=== PATIENT | female | born 1960 | race Caucasian/White ===

== ENCOUNTER → 2016-07-10 | Outpatient (REF) | payer BC | LOC: M LAB REF 15:58 | PROVIDERS: ATTEND Nurse Practitioner Family | DX: N39.3 Stress incontinence (female) (male) (principal) ==

== ENCOUNTER → 2016-07-13 | Outpatient (CLI) | payer BC ==
--- NOTE | 2016-07-14 10:36 | REP ---
Clinical: Pelvic pain. Technique: Transabdominal pelvic ultrasound followed by transvaginal examination for better evaluation of the endometrium and adnexa. Findings: Bladder is collapsed and measures 6.0 x 1.4 x 3.5 cm. Anteverted uterus measures 7.7 x 5.5 x 3.2 cm. The endometrial complex measures 2.5 mm thickness. Trace endocervical fluid is appreciated. No discrete uterine or endometrial abnormality is identified. The ovaries are not visualized. No pelvic fluid or adnexal mass lesion identified. Impression: Heterogeneous anteverted uterus with trace endocervical fluid. Ovaries not visualized. No pelvic fluid or adnexal mass lesion.
== END ==
LOC: M WHC 09:16
PROVIDERS: ATTEND Nurse Practitioner Family
DX: R10.2 Pelvic and perineal pain (principal); N39.46 Mixed incontinence

== ENCOUNTER → 2016-07-20 | Outpatient (REF) | payer BC ==
[2016-07-20 14:47] LABS: CALCIUM OXALATE CRYSTALS,URINE SMALL AMOUNT /hpf; SQUAMOUS EPITHELIAL CELL URINE SMALL AMOUNT /hpf (SMALL AMT); WBC, URINE TNTC /hpf (0-3)
[2016-07-20 14:51] LABS: BACTERIA, URINE SMALL AMOUNT; HYALINE CAST, URINE NONE SEEN /lpf (0-1); MICROSCOPIC EXAM PERFORMED
== END ==
LOC: M SMT 12:57
PROVIDERS: ATTEND Specialist
DX: N39.41 Urge incontinence (principal)

== ENCOUNTER → 2016-07-21 | Outpatient (CLI) | payer BC ==
--- NOTE | 2016-07-21 10:01 | REP ---
RENAL AND BLADDER ULTRASOUND: Real-time sonographic evaluation of the kidneys performed. Kidneys are normal in size and echotexture, right kidney measuring 12.7 x 6.4 x 5.2 cm and left kidney 12.9 x 9.6 x 7.7 cm. There is no hydronephrosis on the right, but there is mild hydronephrosis on the left. 2.8 cm calculus is seen at the left ureteropelvic junction. There is a cyst in the upper pole of the left kidney 1.3 cm in diameter. Incidental note is made of fatty infiltration of the liver. Urinary bladder measures 6.8 x 8.2 x 4.5 cm with a total volume of 164 mL. Postvoid residual is 11 mL which is 7% of the original volume. IMPRESSION: Calculus at the left ureteral pelvic junction 2.8 cm in diameter with mild left hydronephrosis. Small left renal cyst. Signed by Mark Nugent MD 07/21/2016 01:39 P
--- NOTE | 2016-07-21 17:32 | REP ---
KUB, TWO VIEWS: HISTORY: Kidney stone. Air is present in small and large intestine. There are no air fluid levels or dilated loops of intestine. There is no pneumoperitoneum. Calcifications measuring 9 and 19 mm are present overlying the left kidney consistent with nephrolithiasis. IMPRESSION: 1. Nonspecific bowel gas pattern. 2. Left nephrolithiasis. Signed by Jeffrey Bland MD 07/21/2016 05:46 P
== END ==
LOC: M RAD 07:12
PROVIDERS: ATTEND Specialist
DX: N20.0 Calculus of kidney (principal)

== ENCOUNTER → 2016-07-26 | Outpatient (CLI) | payer BC ==
[2016-07-26 12:24] LABS: MEAN CORPUSCULAR HEMOGLOBIN 30.9 pg (27.0-33.0); MEAN CORPUSCULAR VOLUME 93.5 fl (80.0-96.0); WHITE BLOOD COUNT 10.4 K/mm3 (4.0-10.0)
[2016-07-26 12:33] LABS: INR 1.15
[2016-07-26 12:48] LABS: CREATININE FOR GFR 1.05 MG/DL (0.55-1.02); GLOMERULAR FILTRATION RATE 57.5 (>51); POTASSIUM SERUM 4.6 MEQ/L (3.5-5.1)
--- NOTE | 2016-07-26 21:10 | ECGEPIP ---
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
--- NOTE | 2016-07-27 04:10 | REP ---
Clinical: Preoperative assessment . Comparison: 10/03/2006 . Technique: PA and lateral. Findings: The mediastinum and cardiac silhouette are normal. The lung johnson are clear and without acute consolidation, effusion, or pneumothorax. The skeletal structures are intact and normal. Impression: 1. No acute cardiopulmonary process. Signed by Jed Lewis MD 07/27/2016 04:01 A
== END ==
LOC: M LAB 11:50
PROVIDERS: ATTEND Urology
DX: N20.0 Calculus of kidney (principal)

== ENCOUNTER → 2016-07-29 | Outpatient (CLI) | payer BC | LOC: M LAB 08:19 | PROVIDERS: ATTEND Nurse Practitioner Family | DX: E78.4 Other hyperlipidemia (principal) ==

== ENCOUNTER → 2016-08-08 | Outpatient (CLI) | payer BC ==
[~2016-08-08] MED LIST: ACET50TA PO; ASPI1TAB PO; COLA100C3 PO; DITR5TAB PO; FURO40TA2 PO; LASI40TA PO; LISI10TA4 PO; OXYB5TA PO; SIMV20TA2 PO; SULF1TAB72 PO; ULTR50TA PO; ZEST1TAB6 PO; ZOCO20TA PO
--- NOTE | 2016-08-09 05:31 | REP ---
Clinical: Left flank pain. 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 Two vague left renal hypodensities are also appreciated and may represent cysts. Right kidney demonstrates 1 mm nonobstructing calculus without hydroureternephrosis or perinephric stranding. The bladder is collapsed and normal. Fatty infiltration to the liver noted. Spleen, pancreas, gallbladder, and bilateral adrenal glands are normal. The enteric system is without obstruction or acute inflammatory process. Normal terminal ileum and appendix identified in the right lower quadrant. Pelvis demonstrates normal collapsed bladder and age-appropriate uterus/adnexa. Sigmoid diverticula noted without acute diverticulitis. No pelvic fluid or ascites. No obvious adenopathy. Abdominal aorta without aneurysm. No free air. Musculoskeletal structures demonstrate age-related changes without focal osseous abnormality. Impression: 1. Acute on chronic changes to the left kidney as described above secondary to a 2 cm left renal calculus and 11 mm obstructing left UPJ calculus with possible early xanthogranulomatous changes. Punctate nonobstructing right renal calculus noted. Bilateral ureters and bladder appear normal. 2. Sigmoid diverticulosis without acute diverticulitis. 3. Hepatosteatosis. Signed by Jed Lewis MD 08/09/2016 05:22 A
== END ==
LOC: M RAD 13:03
PROVIDERS: ATTEND Urology
DX: N20.0 Calculus of kidney (principal)

== ENCOUNTER → 2016-08-11 | Outpatient (CLI) | payer BC ==
[~2016-08-11] MED LIST changes: -COLA100C3 PO; +COLA100C5 PO; +ISOVUE-300 61% 50ML VIAL (Q9967) As Ordered ONE; +LIDOCAINE 2% MDV 20 ML VIAL As Ordered ONE; +MIDAZOLAM INJ 2 MG/2 ML VIAL (J2250) As Ordered ONE; +NORCO, ANEXSIA 5/325MG TABLET (HYDROcodone/ACETAMINOPHEN) PO PRN; +ONDANSETRON 4 MG ORAL DISINTEGRATING TAB (S0181) SL ONE; -OXYB5TA PO; +OXYB5TAB10 PO; -ULTR50TA PO; +ULTR50TA8 PO; +cefTRIAXone SOD 1 GM VIAL (J0696) As Ordered ONE; +fentaNYL 100 MCG/2 ML INJECTION (J3010) As Ordered ONE; +oxyBUTYnin 5 MG TAB PO PRN
[2016-08-11 20:45] VITALS: BP 150/73
--- NOTE | 2016-08-12 16:03 | REPKIM ---
CLINICAL HISTORY: Left kidney stones, flank pain and h/o multiple UTIs. The referring urology service has asked a nephroureteral catheter (stent) placement for preop percutaneous nephrolithotripsy urology procedure on the left. PROCEDURE PERFORMED: 1. Ultrasound left Kidney 2. Percutaneous antegrade Nephrostogram 3. Percutaneous Nephroureteral catheter (stent) placement INTERVENTIONALIST: Sona Hill MD CONSENT: The risks, benefits and alternatives to the procedure were explained to the patient and informed written consent was obtained. SEDATION: Sedation and analgesia was provided by the Anesthesiology Dept. MEDICATIONS: Rocephin 1gm IV, Local Lidocaine CONTRAST: 15 mL Isovue 300 EBL: 20 mL FLUORO TIME: 11.9 minutes DEVICE USED: Used an 8.5F 45-cm pigtail with its tip trimmed; Nephroureteral catheter PROCEDURE/FINDINGS: The patient was brought to the interventional radiology suite and placed in the prone position, left flank prepped and draped in the usual sterile fashion. Time out procedure was performed. Ultrasound of the kidney showed 2 cm left renal calculus and 11 mm in the left renal pelvis/ureteropelvic junction and mild hydronephrosis. Using ultrasound and fluoroscopy guidance, a 21-gauge Accustick needle was advanced into the targeted lower pole posterior calyx, after infiltration of the skin and deep tissues with local anesthetic. Contrast was injected and images were obtained. This showed free antegrade flow of contrast into the urinary bladder. Using a hydrophilic guidewire, the catheter- wire combination was advanced around the renal pelvis stone into the proximal ureter then into the urinary bladder. The wire was then exchanged for a stiff wire. An 8.5-Burundian 45-cm length nephroureteral catheter (stent) was introduced over the guidewire after serial dilation of its tract. Due to patients body habitus and long length of the ureter, the NU distal loop could not be positioned in the bladder. For this reason, the pigtail portion of the NU was then trimmed and a straight segment of catheter tip positioned in the distal ureter. The nephroureteral catheter was then flushed and capped. The patient tolerated the procedure well with no immediate complications. The patient was transferred to the recovery room. This procedure was performed using ultrasound and fluoroscopy. Dr. Hill was present. IMPRESSION: 1. Two large kidney stones in the renal pelvis and UPJ region associated with mild hydronephrosis. Nephrostogram demonstrates free antegrade flow of contrast into the urinary bladder. 2. Successful 8.5F nephroureteral catheter (stent) placement via the posterior lower pole calyx with its tip positioned in the distal ureter just above the UVJ as discussed above. Findings discussed via phone with Dr. Baez. This NU access will be used for subsequent percutaneous nephrolithotripsy urology procedure. cc: Bull Baez MD [facility]
== END | disposition home or self-care (01) ==
LOC: M IRPRO 10:52
PROVIDERS: ATTEND Urology
DX: N13.2 Hydronephrosis with renal and ureteral calculous obstruction (principal)
CPT/HCPCS: 50395; 74485; C1729; C1769; C1887; C1894; J0696; J2250; J3010; Q9967

== ENCOUNTER 2016-08-14 07:05 | Inpatient (IN) | payer BC ==
[2016-08-14] VITALS (7 sets, daily range): BP systolic 111–145; BP diastolic 51–73
[~2016-08-14] VITALS: Ht 167.6 cm; Wt 120.2 kg
[~2016-08-14 07:05] MED LIST changes: -ACET50TA PO; -COLA100C5 PO; -DITR5TAB PO; +GLYCOPYRROLATE INJ 0.2 MG/ML 2 ML VIAL As Ordered ONE; -ISOVUE-300 61% 50ML VIAL (Q9967) As Ordered ONE; -LASI40TA PO; +LIDOCAINE 2% INJ 100 MG/5 ML SDV (FOR ANES.) As Ordered ONE; +LIDOCAINE 2% JELLY 30 ML As Ordered ONE; -LIDOCAINE 2% MDV 20 ML VIAL As Ordered ONE; +NEOSTIGMINE 1MG/ML 5 ML SYRINGE (J2710) As Ordered ONE; -NORCO, ANEXSIA 5/325MG TABLET (HYDROcodone/ACETAMINOPHEN) PO PRN; -ONDANSETRON 4 MG ORAL DISINTEGRATING TAB (S0181) SL ONE; +ONDANSETRON 4MG/2ML VIAL (J2405) As Ordered ONE; +PROPOFOL 200 MG/20 ML VIAL As Ordered ONE; +ROCURONIUM BROMIDE 50 MG/5 ML VIAL/SYRINGE As Ordered ONE; -ULTR50TA8 PO; -ZEST1TAB6 PO; -ZOCO20TA PO; -cefTRIAXone SOD 1 GM VIAL (J0696) As Ordered ONE; +dexameTHASONE 4 MG/ML 1ML VIAL (J1100) As Ordered ONE; -oxyBUTYnin 5 MG TAB PO PRN
[2016-08-14] MEDS ORDERED: LR 1,000 ML IV ONE (07:15)
[2016-08-14] MEDS ORDERED: FUROSEMIDE 40 MG TAB PO SCH (09:00)
[2016-08-14] MEDS ORDERED: LISINOPRIL 10 MG TAB PO SCH (09:00)
[2016-08-14] MEDS: DOCUSATE SODIUM 100 MG CAP PO SCH ×2 (09:00→21:29)
[2016-08-14] MEDS ORDERED: CONRAY-60 60% 50ML VIAL (Q9961) As Ordered ONE (09:40)
[2016-08-14] MEDS ORDERED: traMADol 50 MG TAB PO PRN (10:00)
[2016-08-14] MEDS ORDERED: ONDANSETRON 4MG/2ML VIAL (J2405) IV PRN ×2 (10:00→11:45)
[2016-08-14] MEDS ORDERED: ACETAMINOPHEN TAB 650MG DOSE (2X325MG) PO PRN (10:00)
[2016-08-14] MEDS ORDERED: MORPHINE 2 MG/ML 1ML SYRINGE IV PRN (10:00)
[2016-08-14] MEDS ORDERED: HYDROmorphone HCL 2 MG/ML 1ML VIAL (J1170) As Ordered ONE (10:31)
[2016-08-14] MEDS: fentaNYL 100 MCG/2 ML INJECTION (J3010) IV PRN ×4 (11:25→11:55)
[2016-08-14] MEDS ORDERED: fentaNYL 100 MCG/2 ML INJECTION (J3010) As Ordered ONE (11:25)
[2016-08-14] MEDS: oxyBUTYnin 5 MG TAB PO PRN ×2 (11:38→19:37)
[2016-08-14] MEDS: traMADol 50 MG TAB PO PRN (11:43)
[2016-08-14 11:44] LABS: MEAN CORPUSCULAR HEMOGLOBIN 31.1 pg (27.0-33.0); MEAN CORPUSCULAR HGB CONC 33.3 g/dl (32.0-36.5); MEAN CORPUSCULAR VOLUME 93.5 fl (80.0-96.0); RED CELL DISTRIBUTION WIDTH 12.5 % (11.5-14.5); WHITE BLOOD COUNT 7.6 K/mm3 (4.0-10.0)
[2016-08-14] MEDS ORDERED: LR 1,000 ML IV SCH (11:45)
[2016-08-14 12:04] LABS: ANION GAP 4 MEQ/L (8-16); BLOOD UREA NITROGEN 14 MG/DL (7-18); CALCIUM LEVEL 8.6 MG/DL (8.5-10.1); CARBON DIOXIDE LEVEL 32 MEQ/L (21-32); CHLORIDE LEVEL 104 MEQ/L (98-107); CREATININE FOR GFR 1.01 MG/DL (0.55-1.02); GLOMERULAR FILTRATION RATE > 60.0 (>51); GLUCOSE, FASTING 96 MG/DL (70-105); POTASSIUM SERUM 3.8 MEQ/L (3.5-5.1); SODIUM LEVEL 140 MEQ/L (136-145)
[2016-08-14] MEDS ORDERED: KETOROLAC 30 MG/ML VIAL (J1885) As Ordered ONE (12:11)
--- NOTE | 2016-08-14 12:16 | REP ---
Clinical: Retrograde pyelogram. Technique: Intraoperative fluoroscopic images. Findings: Multiple intraoperative fluoroscopic images demonstrate left nephrostomy and left ureteral stent placement. Two large intrarenal calcifications in the left kidney are identified and compatible with findings on recent CT. Total fluoroscopic time 58 seconds. Impression: Status post left nephrostomy and left ureteral stent placement. To large calcifications in left kidney again noted and unchanged compared to recent CT. Signed by Jed Lewis MD 08/14/2016 11:20 A
[2016-08-14] MEDS ORDERED: PERCOCET 5MG/325MG TAB As Ordered ONE (12:19)
[2016-08-14] MEDS ORDERED: KETOROLAC 30 MG/ML VIAL (J1885) IV ONE (12:45)
[2016-08-14] MEDS ORDERED: PERCOCET 5MG/325MG TAB PO ONE (12:45)
[2016-08-14] MEDS: NS 1,000 ML IV SCH ×2 (13:27→21:29)
--- NOTE | 2016-08-14 14:46 | RO ---
DATE OF PROCEDURE: 08/14/2016 PREPROCEDURE DIAGNOSIS: Left kidney stone. POSTPROCEDURE DIAGNOSIS: Left kidney stone. PROCEDURE: Left percutaneous nephrolithotomy, left nephroscopy with basket extraction of stones, left antegrade nephrostogram with intraoperative interpretations of images, left ureteral stent placement. SURGEON: Bull Baez MD HEALTH COMMISSIONER: None. ANESTHESIA: General. OPERATIVE INDICATIONS: This is a 56-year-old female with large left kidney stones. It was recommended that she be brought to the operating room today for the above listed procedure. DESCRIPTION OF PROCEDURE: The patient was brought to the operating room and general anesthesia was induced. Antibiotics were infused. She then had a Richardson catheter placed in the bladder under sterile conditions. After that point, she was placed in the prone position with all pressure points appropriately padded. At this time, the previously placed left nephroureteral stent was utilized to advance a Super Stiff wire down into the bladder. The nephroureteral stent was then removed leaving the wire in place. An approximately 3 to 4 cm transverse incision was made adjacent to the wire in the skin. I then advanced a dual lumen catheter over the wire into the left kidney. An antegrade nephrostogram was performed and it was negative for extravasation. Of note, the two large stones were easily seen on fluoroscopy and were radiopaque. At this point, the dual lumen ureteral catheter was utilized to advance a guidewire down into the bladder. The dual lumen ureteral catheter was then removed leaving two wires in place. The guidewire was then secured to the drape to serve as a safety wire and the Super Stiff wire was utilized to advance the balloon dilator into the left kidney. The balloon was then inflated. Then an access sheath was advanced over the balloon and into the lower pole calyx of the left kidney. The balloon was then let down and then removed and the wire was secured to the drape. I then went in with a nephroscope and the first stone was seen. The stone was grasped with a basket and removed from the left kidney. The other stone, which was larger and in the upper pole calyx stone. The stone was fragmented with a Cyberwand and then some of the pieces were suctioned out. Once the stone was fragmented into smaller pieces, all of the pieces were removed with the basket. At this point, no additional stone fragments were seen. We then utilized the Super Stiff wire to advance a #7 x 22-32 JJ ureteral stent down into the left collecting system. The wire was then removed and there were adequate curls of the stent in the left renal pelvis and in the bladder. At this point, the access sheath was removed and the other wire was utilized to advance an #18 Wolof [place] tip catheter into the left kidney. The balloon of the catheter was inflated about 2 to 3 mm with contrast. The wire was then removed and another antegrade nephrostogram was performed and was negative for extravasation. Contrast was flowed down the left ureter. The catheter was secured to the patient's skin with a #3-0 silk suture. The catheter was connected to gravity drainage. Dressings were then applied and this marked conclusion of the procedure. The patient was then taken out of the prone position, laid supine, awakened from anesthesia and transported to the recovery room in stable condition. ESTIMATED BLOOD LOSS: 25 mL. COMPLICATIONS: None. SPECIMENS: Kidney stone fragments. PLAN: The patient will be kept in the hospital overnight. If her bloodwork looks good tomorrow and her pain is controlled, we will remove the left nephrostomy catheter followed by the Richardson catheter. The patient will be sent home with the stent in place and we will plan to remove the stent in the office in possibly 2 to 3 weeks. SANJUANA
[2016-08-14] MEDS: ceFAZolin SOD 1 GM in D5W MINI-BAG PLUS 50 ML IV SCH (16:38)
[2016-08-14] MEDS ORDERED: SIMVASTATIN 20 MG TAB PO SCH (21:00)
[2016-08-15] VITALS: BP 119/65
[2016-08-15] MEDS: ceFAZolin SOD 1 GM in D5W MINI-BAG PLUS 50 ML IV SCH (00:48)
[2016-08-15] MEDS: traMADol 50 MG TAB PO PRN (00:49)
[2016-08-15] MEDS: oxyBUTYnin 5 MG TAB PO PRN ×2 (03:52→13:51)
[2016-08-15] MEDS: NS 1,000 ML IV SCH (03:53)
[2016-08-15 05:00] VITALS: BP 113/65
[2016-08-15 06:59] LABS: MEAN CORPUSCULAR HEMOGLOBIN 30.9 pg (27.0-33.0); MEAN CORPUSCULAR HGB CONC 33.3 g/dl (32.0-36.5); MEAN CORPUSCULAR VOLUME 92.7 fl (80.0-96.0); RED CELL DISTRIBUTION WIDTH 12.8 % (11.5-14.5); WHITE BLOOD COUNT 6.4 K/mm3 (4.0-10.0)
[2016-08-15 07:18] LABS: ANION GAP 7 MEQ/L (8-16); BLOOD UREA NITROGEN 9 MG/DL (7-18); CALCIUM LEVEL 8.1 MG/DL (8.5-10.1); CARBON DIOXIDE LEVEL 27 MEQ/L (21-32); CHLORIDE LEVEL 106 MEQ/L (98-107); CREATININE FOR GFR 0.72 MG/DL (0.55-1.02); GLOMERULAR FILTRATION RATE > 60.0 (>51); GLUCOSE, FASTING 94 MG/DL (70-105); POTASSIUM SERUM 3.9 MEQ/L (3.5-5.1); SODIUM LEVEL 140 MEQ/L (136-145)
[2016-08-15 08:00] VITALS: BP 114/58
[2016-08-15] MEDS ORDERED: FUROSEMIDE 40 MG TAB PO SCH (09:00)
[2016-08-15] MEDS ORDERED: LISINOPRIL 10 MG TAB PO SCH (09:00)
[2016-08-15 09:04] VITALS: BP 114/58
[2016-08-15] MEDS: DOCUSATE SODIUM 100 MG CAP PO SCH (09:04)
--- NOTE | 2016-08-15 09:06 | IPNPDOC ---
Assessment/Plan Date Seen The patient was seen on 08/15/16. Patient Summary This is a 56 y/o F who is POD1 s/p left PCNL. She is doing well. Her labs this morning are within normal limits. UOP has been excellent. Plan/VTE VTE Prophylaxis Ordered?: Yes VTE Exclusion Mechanical Proph: N/A:VTE Prophy Ordered Plan/Urinary Catheter Urinary Catheter: D/C Rodarte Plan - left nephrostomy catheter removed - d/c Rodarte catheter - will continue IVF for now as patient felt really dehydrated preop - SCDs - ambulate - likely discharge home after patient voids w/ plan to remove her stent in a few weeks Subjective Review oF Systems Chief Complaint The patient is a 56-year-old female admitted with a reason for visit of Nephrolithiasis. Events since Last Encounter No acute events o/n. Patient notes good pain control. Her only complaint is intermittent bladder spasms. She denies n/v. She denies f/c/ns. Objective Physical Examination General Exam: Alert, Cooperative Skin Exam: Nl turgor and temperature Neuro Exam: Normal Gait, Normal Speech Other physical findings left nephrostomy catheter draining dark pink urine; rodarte catheter draining clear urine Vital Signs/I&O Vital Signs Date Time Temp Pulse Resp B/P (MAP) Pulse Ox O2 Delivery O2 Flow Rate FiO2 08/15/16 08:00 97.7 59 20 114/58 (76) 95 Room Air 08/14/16 11:55 2.0 I&O- Last 24 Hours up to 6 AM 08/15/16 06:00 Intake Total 2447 ml Output Total 1950 ml Balance 497 ml Laboratory Data Labs 24H Laboratory Tests 2 08/14/16 10:42: 08/14/16 11:31: Anion Gap 4L, Glomerular Filtration Rate > 60.0, Blood Urea Nitrogen 14, Creatinine 1.01, Sodium Level 140, Potassium Level 3.8, Chloride Level 104, Carbon Dioxide Level 32, Calcium Level 8.6 08/15/16 06:46: Anion Gap 7L, Glomerular Filtration Rate > 60.0, Blood Urea Nitrogen 9, Creatinine 0.72, Sodium Level 140, Potassium Level 3.9, Chloride Level 106, Carbon Dioxide Level 27, Calcium Level 8.1L CBC/BMP Laboratory Tests 08/14/16 11:31 Red Blood Count 4.15, Mean Corpuscular Volume 93.5, Mean Corpuscular Hemoglobin 31.1, Mean Corpuscular Hemoglobin Concent 33.3, Red Cell Distribution Width 12.5 , Calcium Level 8.6 08/15/16 06:46 Calcium Level 8.1 L 08/15/16 06:47 Red Blood Count 3.85 L, Mean Corpuscular Volume 92.7, Mean Corpuscular Hemoglobin 30.9, Mean Corpuscular Hemoglobin Concent 33.3, Red Cell Distribution Width 12.8 DEVIKA WARD MD Aug 15, 2016 09:06
[2016-08-15 12:00] VITALS: BP 133/61
[2016-08-15] MEDS ORDERED: ZOCO20TA PO ×2 (12:57→13:26)
[2016-08-15] MEDS ORDERED: COLA100C5 PO (12:57)
[2016-08-15] MEDS ORDERED: ACET50TA PO (13:03)
[2016-08-15] MEDS ORDERED: ULTR50TA8 PO ×2 (13:03→13:14)
[2016-08-15] MEDS ORDERED: DITR5TAB PO ×2 (13:03→13:28)
[2016-08-15] MEDS ORDERED: LASI40TA PO (13:05)
[2016-08-15] MEDS ORDERED: ZEST1TAB6 PO ×2 (13:09→13:30)
--- NOTE | 2016-08-15 19:36 | DSES ---
DATE OF ADMISSION: 08/14/2016 DATE OF DISCHARGE: 08/15/2016 ADMISSION DIAGNOSES: 1. Kidney stones. 2. Morbid obesity with a body mass index (BMI) 42.8. DISCHARGE DIAGNOSES: 1. Kidney stones. 2. Morbid obesity with a body mass index (BMI) 42.8. ADMITTING PHYSICIAN: Dr. Bull Baez. DISCHARGE PHYSICIAN: Dr. Bull Baez. PROCEDURES PERFORMED: Left percutaneous nephrolithotomy on 08/14/2016. HISTORY OF PRESENT ILLNESS: This is a 56-year-old female who was found to have large left kidney stones. She was brought to the hospital for the above listed procedure and was admitted postoperatively. HOSPITALIZATION COURSE: The patient's postoperative course was unremarkable. Her pain was well controlled on postoperative day 1. All of her blood work was within normal limits. On the morning of postoperative day 1, her left nephrostomy catheter was removed. After that point her Richardson catheter was removed and she voided without any difficulty. She was tolerating regular diet and she ambulated without any difficulty. Since she was doing well she was deemed ready for discharge. She was discharged home on postoperative day 1 in good condition with the plan for her to followup in clinic in a few weeks for stent removal. SANJUANA
== END 2016-08-15 15:30 | disposition home or self-care (01) | DRG 443 ==
LOC: M OR 07:05 → EDSTATUS 10:45 → M PED 12:41
PROVIDERS: ADMIT Urology; ATTEND Urology
PROC: 0TC14ZZ Extirpation of Matter from Left Kidney, Percutaneous Endoscopic Approach (ICD-10-PCS; 2016-08-14)
PROC: 0TF43ZZ Fragmentation in Left Kidney Pelvis, Percutaneous Approach (ICD-10-PCS; principal; 2016-08-14 09:05)
DX: N20.0 Calculus of kidney (principal); Z68.41 Body mass index [BMI] 40.0-44.9, adult; I10 Essential (primary) hypertension; E66.01 Morbid (severe) obesity due to excess calories; Z79.899 Other long term (current) drug therapy

== ENCOUNTER → 2016-12-12 | Outpatient (CLI) | payer BC ==
[~2016-12-12] MED LIST changes: +ACET50TA PO; +COLA100C5 PO; +DITR5TAB PO; -GLYCOPYRROLATE INJ 0.2 MG/ML 2 ML VIAL As Ordered ONE; +LASI40TA PO; -LIDOCAINE 2% INJ 100 MG/5 ML SDV (FOR ANES.) As Ordered ONE; -LIDOCAINE 2% JELLY 30 ML As Ordered ONE; -MIDAZOLAM INJ 2 MG/2 ML VIAL (J2250) As Ordered ONE; -NEOSTIGMINE 1MG/ML 5 ML SYRINGE (J2710) As Ordered ONE; -ONDANSETRON 4MG/2ML VIAL (J2405) As Ordered ONE; -PROPOFOL 200 MG/20 ML VIAL As Ordered ONE; -ROCURONIUM BROMIDE 50 MG/5 ML VIAL/SYRINGE As Ordered ONE; +ULTR50TA8 PO; +ZEST1TAB6 PO; +ZOCO20TA PO; -dexameTHASONE 4 MG/ML 1ML VIAL (J1100) As Ordered ONE; -fentaNYL 100 MCG/2 ML INJECTION (J3010) As Ordered ONE
--- NOTE | 2016-12-12 10:25 | REP ---
Bilateral screening digital mammogram: There are no palpable abnormalities or other breast complaints. The patient states she/he had a clinical breast exam November 2016. Comparison is 12/13/2011. The breast parenchyma is predominantly adipose, unchanged. There are benign calcifications. There has been no interval development of masses, areas of structural distortion or clusters of microcalcifications typical of malignancy. Impression: There is no evidence of malignancy. BI-RADS/ACR category 2 mammogram. Benign findings. The patient should have a repeat mammogram in 1 year. This mammogram was interpreted with the aid of an FDA-approved computer-aided detection system. A. Negative x-ray reports should not delay biopsy if a dominant or clinically suspicious mass is present. B. Not all breast cancers are identified by x-ray. C. Adenosis and dense breasts may obscure an underlying neoplasm. The patient letter being requested is M1.
== END ==
LOC: M WHC 07:45
PROVIDERS: ATTEND Nurse Practitioner Family
DX: Z12.31 Encounter for screening mammogram for malignant neoplasm of breast (principal)
CPT/HCPCS: 87086; G0202

== ENCOUNTER 2017-05-04 10:55 | Emergency (ER) | payer BC | END 2017-05-04 11:15 | disposition home or self-care (01) | LOC: M ED 10:55 | DX: S83.91XA Sprain of unspecified site of right knee, initial encounter (principal); X50.0XXA Overexertion from strenuous movement or load, initial encounter; Y92.89 Other specified places as the place of occurrence of the external cause; I10 Essential (primary) hypertension | CPT/HCPCS: 73564 ==

== ENCOUNTER → 2017-08-01 | Outpatient (CLI) | payer BC ==
[2017-08-01 11:31] LABS: ANION GAP 6 MEQ/L (8-16); BLOOD UREA NITROGEN 17 MG/DL (7-18); CALCIUM LEVEL 9.2 MG/DL (8.5-10.1); CARBON DIOXIDE LEVEL 31 MEQ/L (21-32); CHLORIDE LEVEL 107 MEQ/L (98-107); CREATININE FOR GFR 0.91 MG/DL (0.55-1.30); GLOMERULAR FILTRATION RATE > 60.0 (>51); GLUCOSE, FASTING 90 MG/DL (70-100); POTASSIUM SERUM 4.4 MEQ/L (3.5-5.1); SODIUM LEVEL 144 MEQ/L (136-145)
== END ==
LOC: M LAB 10:28
DX: Z01.812 Encounter for preprocedural laboratory examination (principal); S83.241A Other tear of medial meniscus, current injury, right knee, initial encounter; X58.XXXA Exposure to other specified factors, initial encounter; Y92.9 Unspecified place or not applicable
CPT/HCPCS: 36415

== ENCOUNTER → 2017-08-01 | Outpatient (CLI) | payer BC ==
[2017-08-01 11:07] LABS: BASO # 0.1 10^3/uL (0.0-0.2); BASO % 0.6 % (0.0-1.0); EOS # 0.2 10^3/uL (0.0-0.50); HEMOGLOBIN 13.3 g/dl (12.0-15.5); IMMATURE GRANULOCYTE % 0.5 % (0-3.0); LYMPH # 2.4 10^3/uL (1.5-4.5); MEAN CORPUSCULAR HEMOGLOBIN 29.9 pg (27.0-33.0); MEAN CORPUSCULAR HGB CONC 32.4 g/dl (32.0-36.5); MEAN CORPUSCULAR VOLUME 92.1 fl (80.0-96.0); MONO # 0.5 10^3/uL (0.0-0.8); MONO % 5.8 % (0.0-5.0); NEUTROPHILS % 61.1 % (36.0-66.0); PLATELET COUNT, AUTOMATED 272 10^3/uL (150-450); RED BLOOD COUNT 4.45 10^6/uL (4.00-5.40); RED CELL DISTRIBUTION WIDTH 12.8 % (11.5-14.5); WHITE BLOOD COUNT 8.1 10^3/uL (4.0-10.0)
[2017-08-01 11:34] LABS: ALBUMIN 3.6 GM/DL (3.2-5.2); ALBUMIN/GLOBULIN RATIO 1.09 (1.00-1.93); ALKALINE PHOSPHATASE 92 U/L (45-117); ALT/SGPT 32 U/L (12-78); ANION GAP 8 MEQ/L (8-16); AST/SGOT 14 U/L (7-37); BILIRUBIN,TOTAL 0.5 MG/DL (0.2-1.0); BLOOD UREA NITROGEN 17 MG/DL (7-18); CALCIUM LEVEL 9.2 MG/DL (8.5-10.1); CARBON DIOXIDE LEVEL 30 MEQ/L (21-32); CHLORIDE LEVEL 106 MEQ/L (98-107); CHOLESTEROL LEVEL 166 MG/DL (<200); CHOLESTEROL RISK RATIO 2.912 (<5); CREATININE FOR GFR 0.88 MG/DL (0.55-1.30); GLOMERULAR FILTRATION RATE > 60.0 (>51); GLUCOSE, FASTING 90 MG/DL (70-100); HDL CHOLESTEROL 57 MG/DL (>40); NON-HDL-C 109 MG/DL; POTASSIUM SERUM 4.5 MEQ/L (3.5-5.1); SODIUM LEVEL 144 MEQ/L (136-145); TOTAL PROTEIN 6.9 GM/DL (6.4-8.2); TRIGLYCERIDES LEVEL 95 MG/DL (<150)
== END ==
LOC: M LAB 10:25
DX: I10 Essential (primary) hypertension (principal); E78.4 Other hyperlipidemia
CPT/HCPCS: 80053

== ENCOUNTER → 2017-08-23 | Outpatient (REF) | payer BC | LOC: M SFHCWAGY 16:54 | DX: R30.0 Dysuria (principal) | CPT/HCPCS: 87186 ==

== ENCOUNTER 2017-09-14 11:20 | Day surgery (SDC) | payer BC ==
[~2017-09-14 11:20] MED LIST changes: -ACET50TA PO; -ASPI1TAB PO; -COLA100C5 PO; -DITR5TAB PO; -FURO40TA2 PO; -LASI40TA PO; +LIDOCAINE 2% INJ 100 MG/5 ML SDV (FOR ANES.) As Ordered; -LISI10TA4 PO; -OXYB5TAB10 PO; +PROPOFOL 200 MG/20 ML VIAL As Ordered; -SIMV20TA2 PO; -SULF1TAB72 PO; -ULTR50TA8 PO; -ZEST1TAB6 PO; -ZOCO20TA PO
[2017-09-14] MEDS: NS 1,000 ML IV (11:37)
[2017-09-14] MEDS ORDERED: PROPOFOL 200 MG/20 ML VIAL As Ordered (12:51)
== END 2017-09-14 13:38 | disposition home or self-care (01) ==
LOC: M OPP 11:20
DX: Z12.11 Encounter for screening for malignant neoplasm of colon (principal); K64.0 First degree hemorrhoids; D12.6 Benign neoplasm of colon, unspecified; K57.30 Diverticulosis of large intestine without perforation or abscess without bleeding; Z86.010 Personal history of colon polyps; E78.00 Pure hypercholesterolemia, unspecified; I10 Essential (primary) hypertension; R60.0 Localized edema; Z79.82 Long term (current) use of aspirin; Z79.899 Other long term (current) drug therapy; Z88.5 Allergy status to narcotic agent; Z98.51 Tubal ligation status; Z78.0 Asymptomatic menopausal state; Z87.440 Personal history of urinary (tract) infections; Z80.0 Family history of malignant neoplasm of digestive organs
CPT/HCPCS: 45385

== ENCOUNTER → 2017-10-31 | Outpatient (CLI) | payer BC | LOC: M WUC 16:05 | DX: R05 Cough (principal); M51.34 Other intervertebral disc degeneration, thoracic region; M41.34 Thoracogenic scoliosis, thoracic region | CPT/HCPCS: 71046 ==

== ENCOUNTER 2017-11-03 08:44 | Emergency (ER) | payer BC ==
[2017-11-03] MEDS: KETOROLAC 60 MG/2 ML VIAL (J1885) IM (09:32)
== END 2017-11-03 11:03 | disposition home or self-care (01) ==
LOC: M ED 08:44
DX: M17.11 Unilateral primary osteoarthritis, right knee (principal); Z79.899 Other long term (current) drug therapy; Z79.82 Long term (current) use of aspirin; Z88.5 Allergy status to narcotic agent
CPT/HCPCS: J1885

== ENCOUNTER → 2017-11-05 | Outpatient (CLI) | payer BC ==
[2017-11-05 17:53] LABS: BLOOD UREA NITROGEN 17 MG/DL (7-18)
[2017-11-05 17:53] LABS: CREATININE FOR GFR 0.78 MG/DL (0.55-1.30); GLOMERULAR FILTRATION RATE > 60.0 (>51)
== END ==
LOC: M WUC 15:19
DX: S83.231D Complex tear of medial meniscus, current injury, right knee, subsequent encounter (principal)
CPT/HCPCS: 82565

== ENCOUNTER → 2018-04-03 | Outpatient (REF) | payer BC ==
[~2018-04-03] MED LIST changes: +ASPI1TAB PO; +COLA100C5 PO; +DITR5TAB PO; +ESTR62CR PV; +FURO40TA2 PO; +IBUP200C25 PO; +LASI40TA9 PO; +LATA5OPD OU; +LEVA750T7 PO; -LIDOCAINE 2% INJ 100 MG/5 ML SDV (FOR ANES.) As Ordered; +LISI10TA4 PO; +MAPA500T2 PO; +MEDR4PAK PO; +MYRB50TA PO; +NAPR-50 PO; +NORCOTAB PO; +OXYB5TAB10 PO; -PROPOFOL 200 MG/20 ML VIAL As Ordered; +SIMV20TA2 PO; +SULF1TAB72 PO; +TIZA4CAP PO; +TRAM50TA2 PO; +ULTR50TA8 PO; +ZEST1TAB6 PO; +ZOCO20TA PO
[2018-04-03 13:28] LABS: AMORPHOUS SEDIMENT SMALL (NEGATIVE); APPEARANCE, URINE TURBID (CLEAR); BACTERIA, URINE AUTO NEGATIVE (NEGATIVE); BILIRUBIN, URINE AUTO NEGATIVE (NEGATIVE); BLOOD, URINE BLOOD NEGATIVE (NEGATIVE); COLOR, URINE YELLOW (YELLOW); GLUCOSE, URINE (UA) AUTO NEGATIVE (NEGATIVE); KETONE, URINE AUTO TRACE mg/dL (NEGATIVE); LEUKOCYTE ESTERASE, URINE AUTO 2+ (NEGATIVE); MUCUS, URINE SMALL (NEGATIVE); NITRITE, URINE AUTO NEGATIVE (NEGATIVE); PROTEIN, URINE AUTO NEGATIVE (NEGATIVE); RBC, URINE AUTO 1 /HPF (0-3); SPECIFIC GRAVITY URINE AUTO 1.026 (1.002-1.035); SQUAMOUS EPITHELIAL CELL UR AU 1 /HPF (0-6); UROBILINOGEN, URINE AUTO 0.2 mg/dL (0.0-2.0); WBC, URINE AUTO 0 /HPF (0-3)
== END ==
LOC: M SMT 12:47
PROVIDERS: ATTEND Nurse Practitioner Women's Health
DX: N39.41 Urge incontinence (principal)

== ENCOUNTER → 2018-04-07 | Outpatient (CLI) | payer BC ==
[2018-04-07 08:03] LABS: BASO % 0.3 % (0.0-1.0); EOS # 0.1 10^3/uL (0.0-0.50); EOS % 0.8 % (0.0-3.0); HEMATOCRIT 43.6 % (36.0-47.0); HEMOGLOBIN 13.8 g/dl (12.0-15.5); LYMPH # 2.9 10^3/uL (1.5-4.5); LYMPH % 28.2 % (24.0-44.0); MEAN CORPUSCULAR HEMOGLOBIN 29.9 pg (27.0-33.0); MEAN CORPUSCULAR HGB CONC 31.7 g/dl (32.0-36.5); MEAN CORPUSCULAR VOLUME 94.4 fl (80.0-96.0); MONO # 0.5 10^3/uL (0.0-0.8); MONO % 5.1 % (0.0-5.0); NEUTROPHILS # 6.6 10^3/uL (1.8-7.7); NEUTROPHILS % 65.2 % (36.0-66.0); PLATELET COUNT, AUTOMATED 255 10^3/uL (150-450); RED BLOOD COUNT 4.62 10^6/uL (4.00-5.40); WHITE BLOOD COUNT 10.1 10^3/uL (4.0-10.0)
[2018-04-07 08:33] LABS: BILIRUBIN,TOTAL 0.7 MG/DL (0.2-1.0); CALCIUM LEVEL 9.4 MG/DL (8.5-10.1); CHOLESTEROL RISK RATIO 2.864 (<5); CREATININE FOR GFR 1.1 MG/DL (0.55-1.30); GLOMERULAR FILTRATION RATE 54.1 (>51); POTASSIUM SERUM 4.6 MEQ/L (3.5-5.1); TOTAL PROTEIN 6.9 GM/DL (6.4-8.2)
== END ==
LOC: M LAB 07:24
PROVIDERS: ATTEND Nurse Practitioner Family
DX: I10 Essential (primary) hypertension (principal); E78.49 Other hyperlipidemia

== ENCOUNTER → 2018-04-30 | Outpatient (CLI) | payer BC ==
--- NOTE | 2018-04-30 20:05 | REPMRS ---
Patient History The patient states she had a clinical breast exam in 04/2018. Patient is postmenopausal. Family history of colorectal cancer at age 75 in father, ovarian cancer at age 43 in sister, breast cancer at age 70 in paternal aunt, breast cancer at age 75 in paternal aunt. Taking estrogen for 3 years 5 months. Digital Woman Screen Mammo: April 30, 2018 - Exam #: [id number] Bilateral CC and MLO view(s) were taken. Technologist: Windy Reyes, Technologist Prior study comparison: December 12, 2016, digital woman screen mammo performed at [facility]. December 09, 2015, digital woman screen mammo performed at [facility]. FINDINGS: The breast tissue is almost entirely fat. There has been no change in the appearance of the mammogram from the prior studies. There is no interval development of dominant mass, areas of architectural distortion, or clustered microcalcification typical of malignancy. Scattered lymph nodes are seen in the axillae. There is a benign appearing intramammary node in the upper outer quadrant of both breasts. Large coarse benign appearing calcifications are present. 3-D tomosynthesis shows no additional findings. No significant changes when compared with prior studies. Assessment: BI-RADS/ACR category 2 mammogram. Benign Findings. Recommendation Routine screening mammogram in 1 year. A. Negative x-ray reports should not delay biopsy if a dominant or clinically suspicious mass is present. B. Four to eight percent of cancers are not identified by mammography. C. Adenosis and dense breast may obscure an underlying neoplasm.(for women over age 40). This mammogram was interpreted with the aid of an FDA-approved computer-aided dectection system. Electronically Signed By: Jerod Celis MD 04/30/182003
== END ==
LOC: M WHC 13:40
PROVIDERS: ATTEND Nurse Practitioner Family
DX: Z12.31 Encounter for screening mammogram for malignant neoplasm of breast (principal); Z78.0 Asymptomatic menopausal state; Z80.0 Family history of malignant neoplasm of digestive organs; Z80.41 Family history of malignant neoplasm of ovary; Z92.23 Personal history of estrogen therapy; R92.1 Mammographic calcification found on diagnostic imaging of breast

== ENCOUNTER → 2018-04-30 | Outpatient (REF) | payer BC ==
[2018-05-02 15:52] LABS: HPV HYBRID CAPTURE II Negative (Negative)
== END ==
LOC: M SFHCWAGY 14:14
PROVIDERS: ATTEND Nurse Practitioner Family
DX: Z12.4 Encounter for screening for malignant neoplasm of cervix (principal)
CPT/HCPCS: 87624; G0123

== ENCOUNTER → 2018-09-12 | Outpatient (CLI) | payer BC ==
[~2018-09-12] MED LIST changes: -ASPI1TAB PO; +ASPI81TA26 PO; +HYDR-3715 PO; +LATA0.0013 OU; -LATA5OPD OU; -NAPR-50 PO; +NAPR-837 PO; -NORCOTAB PO
--- NOTE | 2018-09-17 16:26 | REP ---
Clinical: Flank pain. Lower abdominal pressure. Technique: Axial noncontrast images from the lung bases to the pubic symphysis with coronal and sagittal re-formations. Findings: Lung bases are clear. Liver, spleen, pancreas, gallbladder, bilateral adrenal glands and kidneys are essentially normal for noncontrast evaluation. Incidental small 1 cm hypodense lesion along the subcapsular left lobe of the liver may represent small cyst (image 44). Mild chronic cortical scarring involves the lower pole left kidney. The enteric system is without obstruction or acute inflammatory process. Normal terminal ileum and appendix are identified in the right lower quadrant. Colonic and sigmoid diverticulosis noted without acute diverticulitis. Fat containing left inguinal hernia identified. Pelvis demonstrates collapsed bladder and normal age-appropriate uterus/adnexa. A 4 mm calcification in the region of the right ureterovesical junction is identified and given the patient's symptoms, a partially obstructing distal ureteral calculus cannot be excluded (image 158). Impression: 1. Findings suggesting a nonobstructing 4 mm distal ureteral calculus at the right ureterovesical junction (image 158) without associated hydroureteronephrosis. Correlation with urinalysis and physical examination is recommended. 2. Colonic diverticulosis without acute diverticulitis. Electronically Signed by Jed Lewis MD 09/17/2018 04:18 P
== END ==
LOC: M RAD 08:33
PROVIDERS: ATTEND Specialist
DX: N20.0 Calculus of kidney (principal); K57.90 Diverticulosis of intestine, part unspecified, without perforation or abscess without bleeding

== ENCOUNTER → 2018-09-18 | Outpatient (CLI) | payer BC ==
--- NOTE | 2018-09-18 11:03 | REP ---
Clinical: Nephrolithiasis. Technique: Two supine views of the abdomen and pelvis. Findings: Evaluation of the urinary tract system is limited due to overlying bowel gas pattern and technique. No obvious urinary tract calcifications are appreciated. Small round calcifications in the pelvis likely represent phleboliths. No organomegaly. No abnormal calcifications. Skeletal structures demonstrate age-related changes. Impression: Nonspecific bowel gas pattern. No obvious urinary tract calcifications appreciated. Electronically Signed by Jed Lewis MD 09/18/2018 10:54 A
== END ==
LOC: M SMT 10:44
PROVIDERS: ATTEND Specialist
DX: N20.0 Calculus of kidney (principal)

== ENCOUNTER → 2018-11-05 | Outpatient (CLI) | payer BC ==
[2018-11-05 12:19] LABS: BASO % 0.5 % (0.0-1.0); EOS # 0.2 10^3/uL (0.0-0.5); EOS % 2.3 % (0.0-3.0); HEMATOCRIT 42.4 % (36.0-47.0); HEMOGLOBIN 13.1 g/dl (12.0-15.5); LYMPH # 2.2 10^3/uL (1.5-5.0); LYMPH % 30.7 % (24.0-44.0); MEAN CORPUSCULAR HEMOGLOBIN 30.1 pg (27.0-33.0); MEAN CORPUSCULAR HGB CONC 30.9 g/dl (32.0-36.5); MEAN CORPUSCULAR VOLUME 97.5 fl (80.0-96.0); MONO # 0.4 10^3/uL (0.0-0.8); MONO % 4.9 % (0.0-5.0); NEUTROPHILS # 4.5 10^3/uL (1.5-8.5); NEUTROPHILS % 61.3 % (36.0-66.0); PLATELET COUNT, AUTOMATED 275 10^3/uL (150-450); RED BLOOD COUNT 4.35 10^6/uL (4.00-5.40); WHITE BLOOD COUNT 7.3 10^3/uL (4.0-10.0)
[2018-11-05 12:37] LABS: ALBUMIN 3.5 GM/DL (3.2-5.2); ALT/SGPT 20 U/L (12-78); BILIRUBIN,TOTAL 0.4 MG/DL (0.2-1.0); BLOOD UREA NITROGEN 14 MG/DL (7-18); CALCIUM LEVEL 9.2 MG/DL (8.5-10.1); CARBON DIOXIDE LEVEL 29 MEQ/L (21-32); CHLORIDE LEVEL 110 MEQ/L (98-107); CHOLESTEROL LEVEL 149 MG/DL (<200); CHOLESTEROL RISK RATIO 2.403 (<5); CREATININE FOR GFR 0.78 MG/DL (0.55-1.30); GLOMERULAR FILTRATION RATE > 60.0 (>51); GLUCOSE, FASTING 94 MG/DL (70-100); HDL CHOLESTEROL 62 MG/DL (>40); LDL CHOLESTEROL 76 MG/DL (<100); MAGNESIUM LEVEL 2.2 MG/DL (1.8-2.4); NON-HDL-C 87 MG/DL; NT-PRO BNP 208 PG/ML (<125); POTASSIUM SERUM 4.6 MEQ/L (3.5-5.1); SODIUM LEVEL 144 MEQ/L (136-145); TOTAL PROTEIN 6.3 GM/DL (6.4-8.2); TRIGLYCERIDES LEVEL 54 MG/DL (<150)
[2018-11-05 12:41] LABS: HEMOGLOBIN A1c 5.7 %
== END ==
LOC: M WUC 08:47
PROVIDERS: ATTEND Nurse Practitioner Family
DX: R60.9 Edema, unspecified (principal); I10 Essential (primary) hypertension; E78.5 Hyperlipidemia, unspecified

== ENCOUNTER → 2019-03-29 | Outpatient (CLI) | payer BC ==
[~2019-03-29] MED LIST changes: -SIMV20TA2 PO; +SIMV20TA22 PO; -SULF1TAB72 PO; +SULF400T14 PO
[2019-03-29 18:22] LABS: BASO # 0.1 10^3/uL (0.0-0.2); BASO % 0.7 % (0.0-1.0); EOS # 0.2 10^3/uL (0.0-0.5); EOS % 2.4 % (0.0-3.0); HEMATOCRIT 44.6 % (36.0-47.0); HEMOGLOBIN 13.2 g/dl (12.0-15.5); LYMPH # 2.6 10^3/uL (1.5-5.0); LYMPH % 35.1 % (24.0-44.0); MEAN CORPUSCULAR HEMOGLOBIN 28.6 pg (27.0-33.0); MEAN CORPUSCULAR HGB CONC 29.6 g/dl (32.0-36.5); MEAN CORPUSCULAR VOLUME 96.5 fl (80.0-96.0); MONO # 0.3 10^3/uL (0.0-0.8); MONO % 4.4 % (0.0-5.0); NEUTROPHILS # 4.3 10^3/uL (1.5-8.5); NEUTROPHILS % 57.1 % (36.0-66.0); PLATELET COUNT, AUTOMATED 285 10^3/uL (150-450); RED BLOOD COUNT 4.62 10^6/uL (4.00-5.40); WHITE BLOOD COUNT 7.5 10^3/uL (4.0-10.0)
[2019-03-29 18:34] LABS: ALBUMIN 3.5 GM/DL (3.2-5.2); ALT/SGPT 26 U/L (12-78); BILIRUBIN,TOTAL 0.3 MG/DL (0.2-1.0); BLOOD UREA NITROGEN 16 MG/DL (7-18); CALCIUM LEVEL 8.5 MG/DL (8.8-10.2); CARBON DIOXIDE LEVEL 30 MEQ/L (21-32); CHLORIDE LEVEL 110 MEQ/L (98-107); CHOLESTEROL LEVEL 136 MG/DL (<200); CHOLESTEROL RISK RATIO 2.266 (<5); CREATININE FOR GFR 0.78 MG/DL (0.55-1.30); FREE T4 1.19 NG/DL (0.76-1.46); GLOMERULAR FILTRATION RATE > 60.0 (>45); GLUCOSE, FASTING 94 MG/DL (70-100); HDL CHOLESTEROL 60 MG/DL (>40); LDL CHOLESTEROL 63 MG/DL (<100); NON-HDL-C 76 MG/DL; POTASSIUM SERUM 4.6 MEQ/L (3.5-5.1); SODIUM LEVEL 144 MEQ/L (136-145); TOTAL PROTEIN 6.6 GM/DL (6.4-8.2); TRIGLYCERIDES LEVEL 66 MG/DL (<150)
[2019-03-29 18:47] LABS: HEMOGLOBIN A1c 5.8 %
== END ==
LOC: M WUC 08:10
PROVIDERS: ATTEND Nurse Practitioner Family
DX: I10 Essential (primary) hypertension (principal); E78.5 Hyperlipidemia, unspecified; R73.09 Other abnormal glucose

== ENCOUNTER → 2019-07-31 | Outpatient (CLI) | payer BC | LOC: M PLALAB 15:02 | PROVIDERS: ATTEND Nurse Practitioner Family | DX: Z15.01 Genetic susceptibility to malignant neoplasm of breast (principal) ==

== ENCOUNTER → 2019-07-31 | Outpatient (CLI) | payer BC ==
--- NOTE | 2019-07-31 16:22 | REPMRS ---
Patient History The patient states she had a clinical breast exam in July 2019.Family history of colorectal cancer at age 75 in father, ovarian cancer at age 43 in sister, breast cancer at age 70 in paternal aunt, breast cancer at age 75 in paternal aunt. Taking estrogen for 3 years 5 months. 3D TOMOSYNTHESIS WAS PERFORMED. [facility] lifetime risk for breast cancer is 9.6%. VOLPARA DENSITY A. Digital Woman Screen Mammo: July 31, 2019 - Exam #: [id number] Bilateral CC and MLO view(s) were taken. Technologist: Jing Curran, Technologist Prior study comparison: April 30, 2018, bilateral digital woman screen mammo performed at [facility]. December 12, 2016, digital woman screen mammo performed at [facility], [place]. FINDINGS: There are scattered fibroglandular densities. There has been no change in the appearance of the mammogram from the prior studies. There is a mild amount of residual fibroglandular tissue which is fairly symmetric. There is no interval development of dominant mass, architectural distortion, or clustered microcalcification suggestive of malignancy. Assessment: BI-RADS/ACR category 1 mammogram. Negative Mammogram. Recommendation Routine screening mammogram in 1 year (for women over age 40). This mammogram was interpreted with the aid of an FDA-approved computer-aided dectection system. Electronically Signed By: Mark Nugent MD 07/31/19 [id number]
== END ==
LOC: M WHC 13:46
PROVIDERS: ATTEND Nurse Practitioner Family
DX: Z12.31 Encounter for screening mammogram for malignant neoplasm of breast (principal)

== ENCOUNTER → 2019-09-01 | Outpatient (REF) | payer BC ==
[2019-09-01 14:20] LABS: BASO % 0.5 % (0.0-1.0); EOS # 0.3 10^3/uL (0.0-0.5); EOS % 3.5 % (0.0-3.0); HEMATOCRIT 42.4 % (36.0-47.0); LYMPH # 1.9 10^3/uL (1.5-5.0); LYMPH % 25.1 % (24.0-44.0); MEAN CORPUSCULAR HEMOGLOBIN 29.7 pg (27.0-33.0); MEAN CORPUSCULAR HGB CONC 30.7 g/dl (32.0-36.5); MEAN CORPUSCULAR VOLUME 96.8 fl (80.0-96.0); MONO # 0.6 10^3/uL (0.0-0.8); MONO % 7.4 % (0.0-5.0); NEUTROPHILS # 4.7 10^3/uL (1.5-8.5); NEUTROPHILS % 62.8 % (36.0-66.0); PLATELET COUNT, AUTOMATED 108 10^3/uL (150-450); RED BLOOD COUNT 4.38 10^6/uL (4.00-5.40); WHITE BLOOD COUNT 7.5 10^3/uL (4.0-10.0)
[2019-09-01 14:52] LABS: ALBUMIN 3.6 GM/DL (3.2-5.2); ALT/SGPT 39 U/L (12-78); BILIRUBIN,TOTAL 0.6 MG/DL (0.2-1.0); BLOOD UREA NITROGEN 12 MG/DL (7-18); CALCIUM LEVEL 9.3 MG/DL (8.8-10.2); CARBON DIOXIDE LEVEL 30 MEQ/L (21-32); CHLORIDE LEVEL 105 MEQ/L (98-107); GLOMERULAR FILTRATION RATE > 60.0 (>45); GLUCOSE, FASTING 79 MG/DL (70-100); SODIUM LEVEL 141 MEQ/L (136-145); TOTAL PROTEIN 6.6 GM/DL (6.4-8.2)
== END ==
LOC: M SFHCLERA 11:19
PROVIDERS: ATTEND Family Medicine
DX: R10.9 Unspecified abdominal pain (principal)

== ENCOUNTER → 2019-09-09 | Outpatient (CLI) | payer BC ==
[2019-09-09 15:29] LABS: BASO # 0.1 10^3/uL (0.0-0.2); BASO % 0.9 % (0.0-1.0); EOS # 0.4 10^3/uL (0.0-0.5); EOS % 3.9 % (0.0-3.0); HEMATOCRIT 41.9 % (36.0-47.0); HEMOGLOBIN 12.8 g/dl (12.0-15.5); LYMPH # 2.5 10^3/uL (1.5-5.0); LYMPH % 27.2 % (24.0-44.0); MEAN CORPUSCULAR HEMOGLOBIN 29.2 pg (27.0-33.0); MEAN CORPUSCULAR HGB CONC 30.5 g/dl (32.0-36.5); MEAN CORPUSCULAR VOLUME 95.7 fl (80.0-96.0); MONO # 0.5 10^3/uL (0.0-0.8); MONO % 5.9 % (0.0-5.0); NEUTROPHILS # 5.7 10^3/uL (1.5-8.5); NEUTROPHILS % 61.3 % (36.0-66.0); PLATELET COUNT, AUTOMATED 180 10^3/uL (150-450); RED BLOOD COUNT 4.38 10^6/uL (4.00-5.40); WHITE BLOOD COUNT 9.2 10^3/uL (4.0-10.0)
== END ==
LOC: M PLALAB 13:22
PROVIDERS: ATTEND Family Medicine
DX: D69.6 Thrombocytopenia, unspecified (principal)

== ENCOUNTER → 2019-09-25 | Outpatient (REF) | payer MEDICAID ==
[2019-10-24 22:52] LABS: INR 1.17; PARTIAL THROMBOPLASTIN TIME 28.9 SECONDS (25.0-38.4); PROTHROMBIN TIME 15.1 SECONDS (11.8-14.0)
[2019-10-24 22:53] LABS: COLLAGEN EPINEPHRINE 104 SECONDS (74-162); PLATELET COUNT, AUTOMATED 239 10^3/uL (150-450)
== END ==
LOC: M PLALAB 17:12
PROVIDERS: ATTEND Physician Assistant
DX: M51.37 Other intervertebral disc degeneration, lumbosacral region (principal)

== ENCOUNTER → 2019-10-29 | Outpatient (CLI) | payer OTHER ==
--- NOTE | 2019-11-19 07:12 | REP ---
RIGHT HIP SERIES CLINICAL: Contusion. Pain with recent fall. TECHNIQUE: Neutral and frog lateral views of the right hip. FINDINGS: Age-related degenerative changes are appreciated. No acute fracture or dislocation. Surrounding soft tissues are normal. IMPRESSION: Age-related degenerative changes. No acute fracture. MTDD
--- NOTE | 2019-11-19 07:14 | REP ---
RIGHT KNEE RADIOGRAPHS CLINICAL: Fall with pain. TECHNIQUE: AP, lateral, bilateral oblique, and sunrise views of the right knee. FINDINGS: Age-related osteopenia and moderate to early advanced tricompartmental osteoarthritic degenerative changes are appreciated. No obvious acute fracture or dislocation. No definite effusion. [place] view suggests prepatellar swelling. IMPRESSION: Prepatellar swelling. No acute fracture or dislocation. Tricompartmental degenerative changes. MTDD
== END ==
LOC: M WUC 14:39
PROVIDERS: ATTEND Physician Assistant
DX: S70.01XA Contusion of right hip, initial encounter (principal); S80.01XA Contusion of right knee, initial encounter; X58.XXXA Exposure to other specified factors, initial encounter; Y92.9 Unspecified place or not applicable; M25.78 Osteophyte, vertebrae

== ENCOUNTER → 2019-11-01 | Outpatient (CLI) | payer OTHER | LOC: M LABSMTC 11:00 | PROVIDERS: ATTEND Orthopaedic Surgery | DX: Z11.59 Encounter for screening for other viral diseases (principal); Z20.828 Contact with and (suspected) exposure to other viral communicable diseases ==

== ENCOUNTER → 2019-11-14 | Outpatient (CLI) | payer OTHER ==
[2019-11-14 14:08] LABS: BASO # 0.1 10^3/uL (0.0-0.2); BASO % 0.7 % (0.0-1.0); EOS # 0.2 10^3/uL (0.0-0.5); EOS % 1.8 % (0.0-3.0); HEMATOCRIT 46.1 % (36.0-47.0); HEMOGLOBIN 14.2 g/dl (12.0-15.5); LYMPH # 3.2 10^3/uL (1.5-5.0); LYMPH % 25.2 % (24.0-44.0); MEAN CORPUSCULAR HEMOGLOBIN 29.2 pg (27.0-33.0); MEAN CORPUSCULAR HGB CONC 30.8 g/dl (32.0-36.5); MEAN CORPUSCULAR VOLUME 94.9 fl (80.0-96.0); MONO # 0.9 10^3/uL (0.0-0.8); MONO % 7.2 % (0.0-5.0); NEUTROPHILS # 8.1 10^3/uL (1.5-8.5); NEUTROPHILS % 64.2 % (36.0-66.0); PLATELET COUNT, AUTOMATED 313 10^3/uL (150-450); RED BLOOD COUNT 4.86 10^6/uL (4.00-5.40); WHITE BLOOD COUNT 12.6 10^3/uL (4.0-10.0)
[2019-11-14 14:23] LABS: HEMOGLOBIN A1c 5.7 %
[2019-11-14 14:47] LABS: ALBUMIN 3.7 GM/DL (3.2-5.2); ALT/SGPT 42 U/L (12-78); BILIRUBIN,TOTAL 0.3 MG/DL (0.2-1.0); BLOOD UREA NITROGEN 15 MG/DL (7-18); CALCIUM LEVEL 9.6 MG/DL (8.8-10.2); CARBON DIOXIDE LEVEL 34 MEQ/L (21-32); CHLORIDE LEVEL 103 MEQ/L (98-107); CHOLESTEROL LEVEL 179 MG/DL (<200); CHOLESTEROL RISK RATIO 2.557 (<5); CREATININE FOR GFR 0.77 MG/DL (0.55-1.30); FREE T4 1.12 NG/DL (0.76-1.46); GLOMERULAR FILTRATION RATE > 60.0 (>45); GLUCOSE, FASTING 74 MG/DL (70-100); HDL CHOLESTEROL 70 MG/DL (>40); LDL CHOLESTEROL 87 MG/DL (<100); NON-HDL-C 109 MG/DL; POTASSIUM SERUM 4.8 MEQ/L (3.5-5.1); SODIUM LEVEL 138 MEQ/L (136-145); TOTAL PROTEIN 7.1 GM/DL (6.4-8.2); TRIGLYCERIDES LEVEL 111 MG/DL (<150)
== END ==
LOC: M PLALAB 12:13
PROVIDERS: ATTEND Nurse Practitioner Family
DX: I10 Essential (primary) hypertension (principal); R78.5 Finding of other psychotropic drug in blood; R60.9 Edema, unspecified; R73.09 Other abnormal glucose; N39.46 Mixed incontinence

== ENCOUNTER → 2019-11-24 | Outpatient (REF) | payer OTHER, BC, MEDICAID ==
[2019-11-24 13:35] LABS: APPEARANCE, URINE CLEAR (CLEAR); BACTERIA, URINE AUTO 1+ (NEGATIVE); BILIRUBIN, URINE AUTO NEGATIVE (NEGATIVE); BLOOD, URINE BLOOD NEGATIVE (NEGATIVE); COLOR, URINE YELLOW (YELLOW); GLUCOSE, URINE (UA) AUTO NEGATIVE (NEGATIVE); KETONE, URINE AUTO NEGATIVE (NEGATIVE); LEUKOCYTE ESTERASE, URINE AUTO TRACE (NEGATIVE); NITRITE, URINE AUTO NEGATIVE (NEGATIVE); PROTEIN, URINE AUTO NEGATIVE (NEGATIVE); RBC, URINE AUTO 0 /HPF (0-3); SQUAMOUS EPITHELIAL CELL UR AU 1 /HPF (0-6); UROBILINOGEN, URINE AUTO 0.2 mg/dL (0.0-2.0); WBC, URINE AUTO 8 /HPF (0-3)
== END ==
LOC: M SMT 12:43
PROVIDERS: ATTEND Nurse Practitioner Women's Health
DX: N39.46 Mixed incontinence (principal)

== ENCOUNTER → 2019-12-25 | Outpatient (CLI) | payer OTHER ==
[2019-12-25 17:48] LABS: BASO # 0.1 10^3/uL (0.0-0.2); BASO % 0.6 % (0.0-1.0); EOS # 0.3 10^3/uL (0.0-0.5); EOS % 3.3 % (0.0-3.0); HEMATOCRIT 42.7 % (36.0-47.0); HEMOGLOBIN 13.2 g/dl (12.0-15.5); LYMPH # 2.7 10^3/uL (1.5-5.0); LYMPH % 28.1 % (24.0-44.0); MEAN CORPUSCULAR HEMOGLOBIN 28.6 pg (27.0-33.0); MEAN CORPUSCULAR HGB CONC 30.9 g/dl (32.0-36.5); MEAN CORPUSCULAR VOLUME 92.6 fl (80.0-96.0); MONO # 0.6 10^3/uL (0.0-0.8); MONO % 5.7 % (0.0-5.0); NEUTROPHILS # 5.9 10^3/uL (1.5-8.5); NEUTROPHILS % 61.2 % (36.0-66.0); PLATELET COUNT, AUTOMATED 266 10^3/uL (150-450); RED BLOOD COUNT 4.61 10^6/uL (4.00-5.40); WHITE BLOOD COUNT 9.6 10^3/uL (4.0-10.0)
[2019-12-25 18:09] LABS: INR 1.11; PROTHROMBIN TIME 14.5 SECONDS (12.5-14.3)
[2019-12-25 18:10] LABS: PARTIAL THROMBOPLASTIN TIME 26.1 SECONDS (24.2-38.5)
[2019-12-25 18:29] LABS: ALBUMIN 3.7 GM/DL (3.2-5.2); ALT/SGPT 39 U/L (12-78); BILIRUBIN,TOTAL 0.4 MG/DL (0.2-1.0); BLOOD UREA NITROGEN 16 MG/DL (7-18); CALCIUM LEVEL 9.8 MG/DL (8.8-10.2); CARBON DIOXIDE LEVEL 28 MEQ/L (21-32); CHLORIDE LEVEL 104 MEQ/L (98-107); CREATININE FOR GFR 0.73 MG/DL (0.55-1.30); FREE T4 1.16 NG/DL (0.76-1.46); GLOMERULAR FILTRATION RATE > 60.0 (>45); GLUCOSE, FASTING 83 MG/DL (70-100); NT-PRO BNP 156 PG/ML (<125); POTASSIUM SERUM 4.5 MEQ/L (3.5-5.1); SODIUM LEVEL 138 MEQ/L (136-145); THYROID PEROXIDASE ANTIBODY < 28.0 U/ML (<60.0)
== END ==
LOC: M LAB 17:00
PROVIDERS: ATTEND Family Medicine
DX: I10 Essential (primary) hypertension (principal); E78.5 Hyperlipidemia, unspecified

== ENCOUNTER → 2020-02-04 | Outpatient (CLI) | payer OTHER ==
[~2020-02-04] MED LIST changes: +GABA-845; +HYDR12.55; +LOSA25TA14; +MELO7.5T35; +TIZA4TAB4
== END ==
LOC: M LABSMTC 10:13
PROVIDERS: ATTEND Physical Medicine & Rehabilitation
DX: Z01.812 Encounter for preprocedural laboratory examination (principal); Z20.828 Contact with and (suspected) exposure to other viral communicable diseases

== ENCOUNTER → 2020-02-24 | Outpatient (REF) | payer OTHER ==
[~2020-02-24] MED LIST changes: -GABA-845; +GABA-845 PO; -HYDR12.55; +HYDR12.55 PO; -LOSA25TA14; +LOSA25TA14 PO; -MELO7.5T35; +MELO7.5T35 PO; -TIZA4TAB4; +TIZA4TAB4 PO
[2020-02-24 13:35] LABS: BASO % 0.4 % (0.0-1.0); EOS # 0.2 10^3/uL (0.0-0.5); EOS % 2.4 % (0.0-3.0); HEMATOCRIT 44.9 % (36.0-47.0); HEMOGLOBIN 13.8 g/dl (12.0-15.5); LYMPH # 2.2 10^3/uL (1.5-5.0); LYMPH % 22.7 % (24.0-44.0); MEAN CORPUSCULAR HEMOGLOBIN 29.1 pg (27.0-33.0); MEAN CORPUSCULAR HGB CONC 30.7 g/dl (32.0-36.5); MEAN CORPUSCULAR VOLUME 94.5 fl (80.0-96.0); MONO # 0.6 10^3/uL (0.0-0.8); MONO % 5.9 % (0.0-5.0); NEUTROPHILS # 6.7 10^3/uL (1.5-8.5); NEUTROPHILS % 67.9 % (36.0-66.0); PLATELET COUNT, AUTOMATED 289 10^3/uL (150-450); RED BLOOD COUNT 4.75 10^6/uL (4.00-5.40); WHITE BLOOD COUNT 9.9 10^3/uL (4.0-10.0)
[2020-02-24 13:40] LABS: APPEARANCE, URINE HAZY (CLEAR); BACTERIA, URINE AUTO 1+ (NEGATIVE); BILIRUBIN, URINE AUTO NEGATIVE (NEGATIVE); BLOOD, URINE BLOOD NEGATIVE (NEGATIVE); COLOR, URINE YELLOW (YELLOW); GLUCOSE, URINE (UA) AUTO NEGATIVE (NEGATIVE); KETONE, URINE AUTO NEGATIVE (NEGATIVE); LEUKOCYTE ESTERASE, URINE AUTO 3+ (NEGATIVE); MUCUS, URINE SMALL (NEGATIVE); NITRITE, URINE AUTO NEGATIVE (NEGATIVE); PROTEIN, URINE AUTO NEGATIVE (NEGATIVE); RBC, URINE AUTO 3 /HPF (0-3); SPECIFIC GRAVITY URINE AUTO 1.021 (1.002-1.035); SQUAMOUS EPITHELIAL CELL UR AU 3 /HPF (0-6); UROBILINOGEN, URINE AUTO 0.2 mg/dL (0.0-2.0); WBC, URINE AUTO 19 /HPF (0-3)
[2020-02-24 14:07] LABS: ALBUMIN 3.6 GM/DL (3.2-5.2); ALT/SGPT 38 U/L (12-78); BILIRUBIN,TOTAL 0.4 MG/DL (0.2-1.0); BLOOD UREA NITROGEN 18 MG/DL (7-18); CALCIUM LEVEL 9.4 MG/DL (8.8-10.2); CARBON DIOXIDE LEVEL 31 MEQ/L (21-32); CHLORIDE LEVEL 105 MEQ/L (98-107); CREATININE FOR GFR 0.85 MG/DL (0.55-1.30); GLOMERULAR FILTRATION RATE > 60.0 (>45); GLUCOSE, FASTING 100 MG/DL (70-100); NT-PRO BNP 42 PG/ML (<125); SODIUM LEVEL 140 MEQ/L (136-145); TOTAL PROTEIN 6.8 GM/DL (6.4-8.2)
== END ==
LOC: M SFHCPLAZ 10:59
PROVIDERS: ATTEND Family Medicine
DX: N39.0 Urinary tract infection, site not specified (principal); I10 Essential (primary) hypertension

== ENCOUNTER → 2020-02-26 | Outpatient (CLI) | payer OTHER ==
[~2020-02-26] MED LIST changes: +AMOX500C PO; +LISI10TA22 PO; -LISI10TA4 PO; +OXYB15TA14 PO; +PROHANCE 279.3MG/ML 15ML VIAL As Ordered ONE; +PROHANCE 279.3MG/ML 5ML VIAL As Ordered ONE
== END ==
LOC: M RAD 08:55
PROVIDERS: ATTEND Nurse Practitioner Family
DX: Z91.89 Other specified personal risk factors, not elsewhere classified (principal); Z53.9 Procedure and treatment not carried out, unspecified reason

== ENCOUNTER → 2020-02-26 | Outpatient (CLI) | payer OTHER ==
[~2020-02-26] MED LIST changes: -AMOX500C PO; -LISI10TA22 PO; +LISI10TA4 PO; -OXYB15TA14 PO; -PROHANCE 279.3MG/ML 15ML VIAL As Ordered ONE; -PROHANCE 279.3MG/ML 5ML VIAL As Ordered ONE
--- NOTE | 2020-02-27 07:45 | ECHO ---
DATE OF PROCEDURE: 02/26/2020 Age: 59 Gender: Female Height: 167 cm Weight: 134.7 kg REFERRING PHYSICIAN: XU BARRETT M.D. INDICATION: Heart failure, unspecified. MEASUREMENTS: 2D Measurements: Intraventricular septum 1.36 cm Posterior wall 1.15 cm Left atrium 4.6 cm Left atrial volume index 31 cm Left ventricle diastole 4.8 cm Aortic root 3.0 cm Inferior vena cava 1.2 cm Doppler Measurements: No aortic stenosis No aortic regurgitation Very mild mitral regurgitation No tricuspid regurgitation No pulmonic regurgitation Aortic valve velocity 135 cm/s LVOT velocity 97.9 cm/s Mitral E velocity 79.7 cm/s Mitral A velocity 95.5 cm/s Mitral deceleration time 172 msec Pulmonary artery systolic pressure could not be estimated MITRAL ANNULAR TISSUE DOPPLER E prime septal 6.2 cm/s, E prime lateral 10.2 cm/s DESCRIPTION: Rhythm was sinus. This was a moderately technically difficult echocardiogram. No pericardial effusion. This was a 2D, M-mode, color flow Doppler, and pulsed wave Doppler examination including mitral annular tissue Doppler. CONCLUSIONS: 1. Mild focal hypertrophy of the basal anterior interventricular septum. Probably normal LV wall thickness elsewhere. Normal regional LV wall motion and wall thickening. Normal LV systolic function. LVEF of 60% by visual estimate. Probably grade 1 LV diastolic dysfunction (impaired relaxation filling pattern). 2. Mild left atrial dilatation by left atrial volume index. 3. Mild mitral annular calcification. Very mild mitral regurgitation. 4. Otherwise normal appearing echocardiogram Doppler findings. 5. Moderately technically difficult echocardiogram. MTDD
== END ==
LOC: M CARPUL 09:46
PROVIDERS: ATTEND Family Medicine
DX: I50.9 Heart failure, unspecified (principal)

== ENCOUNTER → 2020-03-04 | Outpatient (CLI) | payer OTHER, BC, MEDICAID ==
[~2020-03-04] MED LIST changes: +AMOX500C PO
== END ==
LOC: M LABSMTC 09:34
PROVIDERS: ATTEND Anesthesiology
DX: Z01.812 Encounter for preprocedural laboratory examination (principal); Z20.822 Contact with and (suspected) exposure to COVID-19

== ENCOUNTER 2020-03-09 13:55 | Day surgery (SDC) | payer OTHER ==
[~2020-03-09] VITALS: Ht 167.6 cm; Wt 137.0 kg
[~2020-03-09 13:55] MED LIST changes: +LIDOCAINE 1% MDV 20ML VIAL SQ PRN; +LISI10TA22 PO; -LISI10TA4 PO; +LR 1,000 ML IV ONE; +LR 1,000 ML IV SCH
[2020-03-09] MEDS ORDERED: OXYB15TA14 PO (14:49)
[2020-03-09] MEDS ORDERED: MIDAZOLAM INJ 2MG/2ML VIAL (J2250 PER 1MG) As Ordered ONE (14:54)
[2020-03-09] MEDS ORDERED: fentaNYL 250 MCG/5 ML INJECTION (J3010) As Ordered ONE (14:54)
[2020-03-09] MEDS ORDERED: propofoL 200 MG/20 ML VIAL As Ordered ONE (14:54)
[2020-03-09] MEDS ORDERED: LIDOCAINE 2% 100MG/5ML SDV (FOR ANES.) As Ordered ONE (14:54)
[2020-03-09] MEDS ORDERED: ROCURONIUM BROMIDE 50 MG/5 ML VIAL As Ordered ONE ×2 (14:54→18:24)
[2020-03-09] MEDS ORDERED: BUPIVACAINE HCL 0.25% 30ML VIAL As Ordered ONE (17:13)
[2020-03-09] MEDS ORDERED: PHENYLephrine 500MCG 5ML (100MCG/ML) SYRINGE As Ordered ONE (18:09)
[2020-03-09] MEDS ORDERED: METOCLOPRAMIDE INJ 10MG/2ML VIAL (J2765 PER 1) As Ordered ONE (18:25)
[2020-03-09] MEDS ORDERED: HYDROmorphone HCL 2 MG/ML 1ML VIAL (J1170) As Ordered ONE (18:28)
[2020-03-09] MEDS ORDERED: ACETAMINOPHEN 1000MG 100ML IV BTL (OFIRMEV) (J0131 PER 10MG) As Ordered ONE (18:31)
[2020-03-09] MEDS ORDERED: ONDANSETRON 4MG/2ML VIAL As Ordered ONE (18:34)
[2020-03-09] MEDS ORDERED: SUGAMMADEX SODIUM 500 MG/5 ML VIAL (BRIDION) As Ordered ONE (18:35)
[2020-03-09] MEDS ORDERED: hydrALAZINE 20MG/ML 1ML VIAL (J0360 PER 20MG) As Ordered ONE (18:51)
[2020-03-09] MEDS ORDERED: fentaNYL 100 MCG/2 ML INJECTION (J3010) IV PRN (20:45)
[2020-03-09] MEDS ORDERED: oxyCODONE 5MG TAB PO PRN (20:45)
[2020-03-09] MEDS ORDERED: LR 1,000 ML IV SCH (20:45)
[2020-03-09] MEDS ORDERED: ONDANSETRON 4MG/2ML VIAL IV PRN (20:45)
[2020-03-09] MEDS ORDERED: ACETAMINOPHEN TAB 650MG DOSE (2X325MG) PO PRN (20:45)
[2020-03-09] MEDS ORDERED: HYDROMORPHONE HCL 0.5 MG/ 0.5 ML SYRINGE (J1170 PER 1) IV PRN (20:45)
[2020-03-09 22:25] VITALS: BP 147/89
--- NOTE | 2020-03-15 13:46 | RO ---
OPERATIVE NOTE DATE OF OPERATION: 03/09/2020 PREOPERATIVE DIAGNOSIS: Symptomatic gallstones. POSTOPERATIVE DIAGNOSIS: Symptomatic gallstones. PROCEDURE: robotic-assisted laparoscopic cholecystectomy. SURGEON: Paulo Rahman MD YARD FOREMAN: ANESTHESIA: General. INDICATIONS FOR THE PROCEDURE: Patient is a 59-year-old woman with a history of intermittent upper abdominal pain over the last several months. Evaluation revealed cholelithiasis on an ultrasound in August. She is now for a robotic-assisted laparoscopic cholecystectomy. OPERATIVE PROCEDURE: The patient was brought to the operating room and placed on the table in a supine position. She was placed under general endotracheal anesthesia. The patient's abdomen was prepped and draped in a sterile fashion. 25% Marcaine was infiltrated at each of the trocar sites as needed. Initial incision was in the left upper quadrant. A short transverse incision was made and a Veress needle was inserted. After a positive hanging drop test, the abdomen was inflated with carbon dioxide gas. An 8 mm robotic port was placed over a 5 mm scope and advanced through the abdominal wall without difficulty. Initial examination revealed abundant omental fat. The tip of the fundus of the gallbladder was visible. The liver had some blunted corners and a somewhat yellowish color, consistent with fatty infiltration of the liver. She was tilted to a slight reverse Trendelenburg position. A second 8 mm port was placed just above the umbilicus, a third in the medial right lower quadrant and a fourth in the lateral right lower quadrant. She was rolled to the left and then placed into a steeper reverse Trendelenburg position. The patient cart of the da Gonzalez XI robot was brought into position and the endoscope arm was docked to the supraumbilical port site. Targeting took place in the right upper quadrant and the additional robotic arms were docked. A hook cautery was placed in the left upper quadrant with a fenestrated bipolar and grasping retractor placed in the right lower quadrant. The right upper quadrant was approached. The omental fat was gently displaced inferiorly. The fundus of the gallbladder was grasped and elevated, and the grasper was then adjusted to about the mid body of the gallbladder to achieve adequate elevation. Dissection was then begun at the area of the gallbladder neck. The peritoneum was opened using the hook cautery. Dissection was carried through the pericholecystic tissues. The cystic duct was clearly identified and freed circumferentially. There were two small vascular branches that were identified. These three structures were then clipped with Hemoclips and divided using the cautery. The gallbladder was then dissected further from the gallbladder bed using the hook cautery. There appeared to be another arterial branch in the gallbladder fossa and this was clipped and cauterized distally. With further dissection, the gallbladder was completely freed. A few very small oozing points on the gallbladder bed were controlled with the cautery. The subhepatic space was then irrigated and suctioned and inspected. There was no evidence of bleeding or bile leak. A specimen bag was inserted through the left upper quadrant port site and the gallbladder was placed within the specimen retrieval bag. Final inspection confirmed no bleeding or bile leak. The additional robotic instruments were withdrawn and the robot was undocked and removed. I returned to the patient's side. A grasper was used to grasp the string of the specimen bag through the supraumbilical site. The abdomen was then deflated and the ports were removed. A longitudinal midline incision was made centered on the 8 mm supraumbilical port. It was necessary to extend the fascial incision to approximately 3 cm to allow the multiple large stones to pass through the abdominal wall. The gallbladder was sent for permanent pathology. The fascia was closed with interrupted simple sutures of 1-0 Vicryl. The skin incisions were all closed with buried 4-0 Vicryl and Steri-Strips. Some additional 25% Marcaine was infiltrated along the supraumbilical incision. Light dressings were applied. The patient tolerated the procedure well without apparent complication. She was awakened in the operating room, extubated and moved to the recovery room in stable condition. SANJUANA
== END 2020-03-09 22:44 | disposition home or self-care (01) ==
LOC: M SDC 13:55
PROVIDERS: ATTEND Surgery
DX: K80.20 Calculus of gallbladder without cholecystitis without obstruction (principal); I10 Essential (primary) hypertension; K76.0 Fatty (change of) liver, not elsewhere classified; E78.5 Hyperlipidemia, unspecified; Z79.82 Long term (current) use of aspirin; Z79.899 Other long term (current) drug therapy
CPT/HCPCS: 47562; 88304; J0131; J0360; J1170; J2250; J2370; J2405; J2765; J3010; S2900

== ENCOUNTER → 2020-04-13 | Outpatient (CLI) | payer OTHER ==
[~2020-04-13] MED LIST changes: -LIDOCAINE 1% MDV 20ML VIAL SQ PRN; -LR 1,000 ML IV ONE; -LR 1,000 ML IV SCH; +OXYB15TA14 PO
[2020-04-13 16:24] LABS: BLOOD UREA NITROGEN 14 MG/DL (7-18); CREATININE FOR GFR 0.86 MG/DL (0.55-1.30); GLOMERULAR FILTRATION RATE > 60.0 (>45)
== END ==
LOC: M PLALAB 14:01
PROVIDERS: ATTEND Physical Medicine & Rehabilitation
DX: M47.817 Spondylosis without myelopathy or radiculopathy, lumbosacral region (principal)

== ENCOUNTER → 2020-06-07 | Outpatient (CLI) | payer OTHER ==
--- NOTE | 2020-06-07 13:03 | REPPI ---
INDICATION: PAIN RIGHT KNEE AFTER INJURY COMPARISON: 10/29/2019 TECHNIQUE: AP, lateral, bilateral oblique and sunrise views. FINDINGS: Moderate tricompartmental osteoarthritic degenerative changes are again noted. Lateral and sunrise views demonstrate significant soft tissue swelling surrounding the patella and anterior to the proximal proximal tibia which may reflect underlying soft tissue injury/hematoma. No acute fracture or dislocation. IMPRESSION: 1. Moderate tricompartmental osteoarthritic degenerative changes similar to prior examination. 2. Soft tissue swelling. Given the patient's history of trauma underlying hematoma cannot be excluded. <Electronically signed by Jed Lewis > 06/07/20 1300
== END ==
LOC: M PLAIMG 12:10
PROVIDERS: ATTEND Nurse Practitioner Family
DX: M25.561 Pain in right knee (principal)

== ENCOUNTER → 2020-06-07 | Outpatient (REF) | payer OTHER ==
[2020-06-07 14:06] LABS: BASO % 0.6 % (0.0-1.0); EOS # 0.3 10^3/uL (0.0-0.5); EOS % 4.2 % (0.0-3.0); HEMOGLOBIN 14.7 g/dl (12.0-15.5); LYMPH # 2.1 10^3/uL (1.5-5.0); LYMPH % 28.4 % (24.0-44.0); MEAN CORPUSCULAR HEMOGLOBIN 30.7 pg (27.0-33.0); MEAN CORPUSCULAR HGB CONC 32.7 g/dl (32.0-36.5); MEAN CORPUSCULAR VOLUME 93.9 fl (80.0-96.0); MONO # 0.3 10^3/uL (0.0-0.8); MONO % 4.4 % (2.0-8.0); NEUTROPHILS # 4.5 10^3/uL (1.5-8.5); PLATELET COUNT, AUTOMATED 278 10^3/uL (150-450); RED BLOOD COUNT 4.79 10^6/uL (4.00-5.40); WHITE BLOOD COUNT 7.2 10^3/uL (4.0-10.0)
[2020-06-07 15:20] LABS: HEMOGLOBIN A1c 5.5 %
[2020-06-07 17:07] LABS: ALBUMIN 3.8 GM/DL (3.2-5.2); ALT/SGPT 56 U/L (12-78); BILIRUBIN,TOTAL 0.5 MG/DL (0.2-1.0); BLOOD UREA NITROGEN 13 MG/DL (7-18); CALCIUM LEVEL 9.3 MG/DL (8.8-10.2); CARBON DIOXIDE LEVEL 29 MEQ/L (21-32); CHLORIDE LEVEL 105 MEQ/L (98-107); CHOLESTEROL LEVEL 152 MG/DL (<200); CHOLESTEROL RISK RATIO 2.714 (<5); CREATININE FOR GFR 0.68 MG/DL (0.55-1.30); GLOMERULAR FILTRATION RATE > 60.0 (>45); GLUCOSE, FASTING 96 MG/DL (70-100); HDL CHOLESTEROL 56 MG/DL (>40); LDL CHOLESTEROL 73 MG/DL (<100); NON-HDL-C 96 MG/DL; POTASSIUM SERUM 4.2 MEQ/L (3.5-5.1); SODIUM LEVEL 140 MEQ/L (136-145); TOTAL PROTEIN 6.9 GM/DL (6.4-8.2); TRIGLYCERIDES LEVEL 117 MG/DL (<150)
== END ==
LOC: M SFHCPLAZ 12:10
PROVIDERS: ATTEND Nurse Practitioner Family
DX: I10 Essential (primary) hypertension (principal); R73.09 Other abnormal glucose; E78.5 Hyperlipidemia, unspecified

== ENCOUNTER → 2020-06-30 | Outpatient (CLI) | payer OTHER ==
[~2020-06-30] MED LIST changes: +GABA-283 PO; -GABA-845 PO
--- NOTE | 2020-06-30 13:40 | REP ---
INDICATION: CONTUSION OF RIGHT KNEE. COMPARISON: 11/10/2019. TECHNIQUE: Multiple sequences obtained in the axial, coronal and sagittal planes. FINDINGS: Menisci: Once again the anterior and posterior horns of the medial meniscus are truncated. There is mild increased signal on T2 weighted images along the superior surface of the posterior horn of the medial meniscus unchanged since the prior study. No new meniscal tear is seen. Cruciate ligaments: Intact. Collateral ligaments: Intact. Extensor mechanism/patellar retinacula: Intact. Cartilage: There is moderate chondromalacia of the patella, particularly centrally, unchanged. There is moderate diffuse chondromalacia of the medial femoral condyle and tibial plateau unchanged. There is mild global chondromalacia of the lateral femoral condyle and tibial plateau unchanged. Bone marrow: There is mild subchondral marrow edema centrally in the patella. Joint fluid: No effusion. Popliteal region: A thin Richmond's cyst in the medial popliteal fossa has mildly increased in size compared to the prior study. Maximum craniocaudal dimension is 4.9 cm and maximum thickness is about 7 mm. IMPRESSION: Stable truncation of the medial meniscus with stable increased signal along the superior surface of the posterior horn of the medial meniscus. No new meniscal tear. No new ligamentous tear. Diffuse chondromalacia is stable. A Richmond's cyst in the medial popliteal fossa has mildly increased in size. <Electronically signed by Mark Nugent > 06/30/20 [id number]
== END ==
LOC: M RAD 10:53
PROVIDERS: ATTEND Physician Assistant
DX: S80.01XA Contusion of right knee, initial encounter (principal); X58.XXXA Exposure to other specified factors, initial encounter; Y92.89 Other specified places as the place of occurrence of the external cause; Y93.9 Activity, unspecified; Y99.9 Unspecified external cause status

== ENCOUNTER → 2020-08-03 | Outpatient (REF) | payer OTHER | LOC: M SFHCWAGY 17:14 | PROVIDERS: ATTEND Nurse Practitioner Women's Health | DX: Z12.4 Encounter for screening for malignant neoplasm of cervix (principal) ==

== ENCOUNTER → 2020-08-03 | Outpatient (CLI) | payer OTHER ==
--- NOTE | 2020-08-03 12:40 | REPMRS ---
Patient History The patient states she had a clinical breast exam in July 2020. Patient is postmenopausal. Family history of colorectal cancer at age 75 in father, ovarian cancer at age 43 in sister, breast cancer at age 70 in paternal aunt, breast cancer at age 75 in paternal aunt, breast cancer at age 50 or over in paternal aunt. Taking estrogen for 4 years 5 months. Tomosynthesis is performed. Volpara breast density is a. [facility] lifetime risk of breast cancer 9.7%. Patient states no breast complaints today. Patient has signed MRS History Sheet. Digital Woman Screen Mammo: August 03, 2020 - Exam #: [id number] Bilateral CC and MLO view(s) were taken. Technologist: Florencia Foy, Technologist Prior study comparison: July 31, 2019, bilateral digital woman screen mammo performed at [facility]. April 30, 2018, bilateral digital woman screen mammo performed at [facility]. FINDINGS: There are scattered fibroglandular densities. There has been no change in the appearance of the mammogram from the prior studies. There is a mild amount of residual fibroglandular tissue which is fairly symmetric. There is no interval development of dominant mass, architectural distortion, or clustered microcalcification suggestive of malignancy. Assessment: BI-RADS/ACR category 1 mammogram. Negative Mammogram. Recommendation Routine screening mammogram in 1 year (for women over age 40). This mammogram was interpreted with the aid of an FDA-approved computer-aided dectection system. Electronically Signed By: Mark Nugent MD 08/03/20 8434
== END ==
LOC: M WHC 11:18
PROVIDERS: ATTEND Nurse Practitioner Women's Health
DX: Z12.31 Encounter for screening mammogram for malignant neoplasm of breast (principal); Z78.0 Asymptomatic menopausal state; Z80.3 Family history of malignant neoplasm of breast; Z80.41 Family history of malignant neoplasm of ovary

== ENCOUNTER → 2020-11-24 | Outpatient (CLI) | payer OTHER ==
--- NOTE | 2020-11-24 16:33 | REP ---
INDICATION: UNI PRIMARY OA, R/O MENISCUS TEAR. COMPARISON: 07/01/2019 although the report is for a right knee MRI the images are not labeled right or left on that exam. TECHNIQUE: Sagittal spin-echo proton density, T2 STIR and T2 FLASH. Coronal spin-echo proton density and fat suppressed proton density. Axial fat suppressed proton density. FINDINGS: There is significant image degradation due to motion artifact. The anterior and posterior horns of the lateral meniscus do not appear to be grossly unchanged. The anterior and posterior horns of the medial meniscus do not appear to be grossly changed but difficult for an exact comparison due to motion artifact. There is no significant change in appearance of the anterior or posterior cruciate ligaments. The appear to be intact although there is some bowing of the posterior cruciate ligament status quo. The quadriceps and patellar tendons are again seen to be intact. The medial and lateral collateral ligaments are again seen to be intact although imaged in a limited fashion. The medial and lateral patellar retinacula are intact. Significant motion artifact precludes precise evaluation of the articular cartilages. Certainly, there is no evidence of improvement. Compartmental narrowing involving the patellofemoral joint and medial compartment are also noted probably unchanged. No gross joint effusion or Richmond's cyst has developed or increased respectively. A small Richmond cyst is again noted status quo. There is no significant change in appearance of the cortical or marrow signal IMPRESSION: The examination is extremely limited as described above, however, there does not appear to be a significant change compared to the prior exam with findings as described above. <Electronically signed by Lpoez Martínez > 11/24/20 1244
== END ==
LOC: M PLAIMG 14:30
PROVIDERS: ATTEND Physician Assistant
DX: M17.11 Unilateral primary osteoarthritis, right knee (principal)

== ENCOUNTER → 2020-12-22 | Outpatient (CLI) | payer OTHER | LOC: M LABSMTC 10:19 | PROVIDERS: ATTEND Pediatrics | DX: Z11.52 Encounter for screening for COVID-19 (principal) ==

== ENCOUNTER → 2021-01-04 | Outpatient (REF) | payer OTHER | LOC: M SFHCPLAZ 13:06 | PROVIDERS: ATTEND Physician Assistant | DX: R30.0 Dysuria (principal) ==

== ENCOUNTER 2021-01-10 15:43 | Emergency (ER) | payer OTHER ==
[~2021-01-10] VITALS: Ht 167.6 cm; Wt 138.6 kg
[2021-01-10 15:43] VITALS: BP 132/93
--- OUTSIDE RECORDS SUMMARY | 2021-01-10 15:54 | CCD | Continuity of Care Document ---
Author Author Natalia WOODY PA-C Organization Unknown Address [address] [place] [id number] Phone [phone] Care Team Providers Care Sausage Smoker Name Role Phone Rory Bowen LAB AIDE AUTM [phone] Yvonne Rogers LAB AIDE AUTM [phone] Niranjan Dempsey MD AUTM [phone] Problems Description No Information Available Social History Type Date Description Comments Sex Unknown ETOH Use Occasionally consumes alcohol Tobacco Use Start: Unknown Denies Smoking Allergies and adverse reactions Active Allergies Criticality Reaction | Severity Comments Date Tylenol With Codeine Unable to assess criticality 07/12/2017 Codeine Unable to assess criticality rash | Mild 07/02/2017 Inactive Allergies NKDA Unable to assess criticality 05/31/2017 Medications Active Medications SIG Qnty Indications Ordering Provide r Date Duloxetine HCL 20mg Caps DR Part Take 1 Capsule By Mouth Every Morning For 2 Weeks Then Increase To 2 Capsules Daily 60caps M70.62 Craig Witt MD 05/03/2020 Celebrex 100mg Capsules 1 by mouth twice a day with food 60caps M70.62 Craig Witt MD 021 Gabapentin 600mg Tablets Take One Tablet By Mouth Three Times A Day 90tabs M51.36 Craig Witt MD 05/03/2020 Tizanidine HCL 4mg Tablets 1 tab by mouth every morning and 1-2 tabs by mouth every night at bedtime as needed 90tabs Craig Witt MD 12/25/2019 Ab Aspirin Ec Low Dose 81mg Tab lets DR Unknown Furosemide 40mg Tablets 1 by mouth every day Unknown Lisinopril 10mg Tablets 1 by mouth every day Unknown Simvastatin 20mg Tablets take one tablet by mouth at bedtime Unknown Premarin 0.625mg/GM Cream 1/4 applicatorful vaginally at bedtime for 14 days then three times weekly Unknown Eye Drops 0.05% Solution Unknown Latanoprost 0.005% Solution Daily At Bedtime Unknown Levofloxacin 750mg Tablets Da swathi 7tabs Unknown Myrbetriq 50mg Tablets ER 24HR Daily Unknown Immunizations Description No Information Available Vital Signs Date Vital Result Comment 12/25/2019 10:47am Height 65 inches 5'5" Weight 300.00 lb BMI (Body Mass Index) 49.9 kg/m2 08/27/2019 8:46am Weight 286.38 lb Results Description No Information Available Procedures Date Code Description Status 12/13/2020 38249 Office/Outpatient Established Mo d MDM 30-39 Min Completed 12/08/2020 05567 Office/Outpatient Established Mo d MDM 30-39 Min Completed 11/09/2020 72609 Office/Outpatient Established Lo w MDM 20-29 Min Completed 11/09/2020 60473 X-Ray Knee Complete W/Obliques & Tunnel And/Or Standing Views Completed 09/21/2020 49570 Office/Outpatient Established Lo w MDM 20-29 Min Completed 09/21/2020 00438 Inject/Drain Joint/Bursa Major C ompleted 07/07/2020 94810 Office/Outpatient Established Mo d MDM 30-39 Min Completed 07/07/2020 28880 Inject/Drain Joint/Bursa Major C ompleted 06/28/202049311 Inject/Drain Joint/Bursa Major C ompleted Medical Devices Description No Information Available Encounters Type Date Location Provider Dx Diagnosis Office Visit 12/13/2020 1:30p Juan Woody PA-C M4 7.817 Spondyls w/o myelopathy or radiculopathy, lumbosacr region M51.37 Other intervertebral disc de generation, lumbosacral region M48.07 Spinal stenosis, lumbosacral region Office Visit 12/08/2020 1:15p [place] Shawna Woody PA-C M1 7.11 Unilateral primary osteoarthritis, right knee Office Visit 11/09/2020 11:00a [place] Shawna Woody PA-C M1 7.11 Unilateral primary osteoarthritis, right knee Office Visit 09/21/2020 1:45p [place] Shawna Woody PA-C M1 7.11 Unilateral primary osteoarthritis, right knee Office Visit 07/07/2020 1:00p [place] Shawna Woody PA-C M1 7.11 Unilateral primary osteoarthritis, right knee Office Visit 06/28/2020 11:15a [place] Shawna Woody PA-C M7 0.62 Trochanteric bursitis, left hip Assessments Date Code Description Provider 12/13/2020 M47.817 Spondylosis without myelopathy or radiculopathy, lumbosacral region Shawna Woody PA-C 12/13/2020 M51.37 Other intervertebral disc degene ration, lumbosacral region Shawna Woody PA-C 12/13/2020 M48.07 Spinal stenosis, lumbosacral reg ion Shawna Woody PA-C 12/08/2020 M17.11 Unilateral primary osteoarthriti s, right knee Shawna Woody PA-C 11/09/2020 M17.11 Unilateral primary osteoarthriti s, right knee Shawna Woody PA-C 11/09/2020 M17.11 Unilateral primary osteoarthriti s, right knee Shawna Woody PA-C 09/21/2020 M17.11 Unilateral primary osteoarthriti s, right knee Shawna Woody PA-C 07/07/2020 M17.11 Unilateral primary osteoarthriti s, right knee Shawna Woody PA-C 06/28/2020 M70.62 Trochanteric bursitis, left hip Shawna Woody PA-C Plan of Treatment Future Appointment(s):* 12/29/2020 1:15 pm - Shawna Woody PA-C [facility] 12/13/2020 - Shawna Woody PA-C* M47.817 Spondylosis without myelopathy or radiculopathy, lumbosacral region * M51.37 Other intervertebral disc degeneration, lumbosacral region* New Orders: * Referral, Ordered: 12/13/20 * Follow up:* Pt has a scheduled appt. (please keep) * M48.07 Spinal stenosis, lumbosacral region Functional Status Description No Information Available Mental Status Description No Information Available Referrals Refer to Dr Reason for Referral Status Appt Date Shawna Woody PA-C MRI Right Knee per [facility] web a [facility] approved passed to shana selene to schedule sw. Created [facility] [place] [address] [phone] Shawna Woody PA-C PT Right Knee per [facility] auth is approved [facility] sw Created [address] [place] [address] [phone] Shawna Woody PA-C M70.60 TROCHANTERIC BURSITITS UNSPECIFI ED HIP Created [address] [place] [address] [phone] Shawna Woody PA-C OV M70.60 TROCHANTERIC BURSITIS, U NSPECIFIED HIP Created [address] [place] [address] [phone] Shawna Woody PA-C OV - M25.561 RT KNEE Created [facility] [place] [address] [phone]
--- OUTSIDE RECORDS SUMMARY | 2021-01-10 15:54 | CCD ---
Author Author [facility] ems Organization [facility] ems Address Unknown Phone Unavailable Care Team Providers Care Technical Services Representative Name Role Phone Yvonne Rogers Unavailable PROBLEMS Type Condition ICD9-CM Code XTZ83-EX Code Onset Dates Condition S tatus W/U Status Risk SNOMED Code Notes Problem Candidal intertrigo B37.2 Active confirmed 202000025 Problem Postmenopausal atrophic vaginitis N95.2 Active con firmed 36338350 Problem Midline cystocele N81.11 Active confirmed 42 8285459 Problem Mixed stress and urge urinary incontinence N39.46 Active confirmed 158977606 Problem Kidney stone N20.0 Active confirmed 3041805 7 Problem Atrophic vaginitis N95.2 Active confirmed 5 8638798 Problem Pelvic organ prolapse quantification stage 1 cystocele N81.10 Active confirmed 988783572 Problem Feeling of incomplete bladder emptying R39.14 A ctive confirmed 838225463 Problem Essential (primary) hypertension I10 Active conf irmed 14519128 Problem Personal history of colonic polyps Z86.010 Activ e confirmed 979308878 Problem IFG (impaired fasting glucose) R73.01 Active confir med 937963039 Problem Vaginal atrophy N95.2 Active confirmed 2971 29091 Problem Hyperlipidemia E78.5 Active confirmed 78013 004 Problem DJD (degenerative joint disease), lumbosacral M47. 817 Active confirmed 35543832 Problem Urge incontinence N39.41 Active confirmed 87 867885 Problem Recurrent UTI N39.0 Active confirmed 348472 001 Problem Lumbar spondylosis M47.816 Active confirmed 117245649 Problem Biliary colic K80.50 Active confirmed 633287 05 Problem Congestive heart failure, un specified HF chronicity, unspecified heart failure type I50.9 Active confirmed 56438495 ALLERGIES Allergen (clinical drug ingredient) Drug/Non Drug Allergy do cumented on EMR Reaction Allergy Type Onset Date Status codeine Codeine Sulfate([facility] Code:[address]-27) Hives Drug Al lakshmi Active ENCOUNTERS from 1960 to 2020-12-31 Encounter Location Date Provider [facility] [address] [phone] [place] [address] 16 Oct, 2020 Yvonne Rogers IMMUNIZATIONS No Information SOCIAL HISTORY Tobacco Use: Social History Observation Description Date Details (start date - stop date) Never Smoker Sex Assigned At : Social History Observation Description Sex Assigned At Unknown Education: Question Answer Notes Level of Education: Not finished High School 10th grade Language: Question Answer Notes Languages spoken: Puerto Rican Yarsani: Question Answer Notes Yarsani 08 Scientology Alcohol Screening: Question Answer Notes Did you have a drink containing alcohol in the past year? Ye s Points 1 Interpretation Negative How often did you have six or more drinks on one occas ion in the past year? Never (0 points) How many drinks did you have on a typica l day when you were drinking in the past year? 1 or 2 (0 points) How often did you have a drink containing alcohol in t he past year? Monthly or less (1 point) BMI Care Goal Follow-Up Question Answer Notes Above Normal BMI Follow-Up Giving encouragement to exercise Tobacco Use: Question Answer Notes Are you a: never smoker never smoker REASON FOR REFERRAL No Information VITAL SIGNS No information MEDICATIONS Medication SIG (Take, Route, Frequency, Duration) Notes Start Da te End Date Status Trospium Chloride ER 60 MG 1 capsule in the morning on an empty stomach or 1 hour before a meal Orally Once a day for 30 day(s) May, Not-Taking Aspir-81 81 MG 1 tablet Orally Once a day for 90 day(s) Active Tolterodine Tartrate 2 MG 1 tablet Orally Twice a day for 30 day (s) May, Active Simvastatin 20 MG 1 tablet in the evening Orally Once a day for 90 da y(s) Active Oxybutynin Chloride ER 15 MG 1 tablet Orally Once a day Active Meloxicam 7.5 MG 1 tablet Orally bid Active Gabapentin 400 MG 1 capsule Orally bid Active Myrbetriq 50 MG 1 tablet Orally Once a day Not-Taking Nystatin 051780 UNIT/GM 1 application Externally Twice a day as needed for 30 Active Losartan Potassium 25 MG 1 tablet Orally Once a day for 90 day(s) Active Furosemide 20 MG 1 tablet Orally Once a day as needed for edema for 90 days Active DULoxetine HCl 20 MG 1 capsule Orally Twice a day for 30 day(s) Active hydroCHLOROthiazide 12.5 MG 1 tablet in the morning Or ally Once a day for 90 day(s) Active tiZANidine HCl 4 MG 1 tablet as needed Orally Three times a day Active Groove Rolling Walker 1 as directed z74.09 Daily for 90 day(s) May, Active Estradiol 0.1 MG/GM 1/2 gram Vaginal use nightly for two weeks, then twice weekly for 90 day(s) Jul, Active Classics Rolling Walker 1 as directed Z74.09 with seat for 90 da y(s) May, Active PROCEDURES No Information RESULTS No Results REASON FOR VISIT [facility] referral - try referral 12/20/20 MEDICAL (GENERAL) HISTORY Type Description Date Medical History hyperlipidemia 2B Medical History hypertension, essential Medical History kidney stones Medical History POP Medical History URINARY INCONTINENCE/URGENCY Medical History adenomatous polyp/tubular ad enoma 08/[address] 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 Medical History Lifetime breast cancer risk 32 % annual breast MRI recommended Medical History glaucoma Surgical History colonoscopy with adenomatous polyp 07/29, 08/2017 Surgical History BTL Surgical History D&C Surgical History EMB Surgical History Surgical History c section Surgical History lithotripsy 2016 Surgical History Right kidney stone extraction 2016 Surgical History glaucoma laser surgery 2016 Surgical History R TORN MENISCUS JULY-2017 Surgical History gallbladder 02/2020 Hospitalization History surgery related Goals Section No Information Health Concerns No Information MEDICAL EQUIPMENT No Information MENTAL STATUS No Information FUNCTIONAL STATUS No Information ASSESSMENTS No Information PLAN OF TREATMENT Medication Medication Name Sig Start Date Stop Date Simvastatin 20 MG 1 tablet in the evening Orally Once a day for 90 day(s) Oxybutynin Chloride ER 15 MG 1 tablet Orally Once a day Next Appt Details Provider Name:Lizet Hanks, 2021-01-19 5 01:30:00 PM, [address], , [place], [address], Provider Name:Jing Santiago, 2021-02-03 01:20:00 PM, [address], , [place], [address], Insurance Providers Payer Name Payer Address Payer Phone Insured Name Patient Relati onship to Insured Coverage Start Date Coverage End Date [facility] [address] [facility] [address] [employer] POOL self
--- OUTSIDE RECORDS SUMMARY | 2021-01-10 15:54 | CCD | Continuity of Care Document ---
Author Author Natalia WOODY PA-C Organization Unknown Address [address] [place] [address] Phone [phone] Care Team Providers Care Education Research Analyst Name Role Phone Rory Bowen BRASS MOLDER HELPER AUTM [phone] Yvonne Rogers BRASS MOLDER HELPER AUTM [phone] Niranjan Dempsey MD AUTM [phone] Problems Description No Information Available Social History [...] Available Procedures Date Code Description Status 12/13/2020 47986 Office/Outpatient Established Mo d MDM 30-39 Min Completed 12/08/2020 77209 Office/Outpatient Established Mo d MDM 30-39 Min Completed 11/09/2020 87713 Office/Outpatient Established Lo w MDM 20-29 Min Completed 11/09/2020 91955 X-Ray Knee Complete W/Obliques & Tunnel And/Or Standing Views Completed 09/21/2020 16047 Office/Outpatient Established Lo w MDM 20-29 Min Completed 09/21/2020 33779 Inject/Drain Joint/Bursa Major C ompleted 07/07/2020 77441 Office/Outpatient Established Mo d MDM 30-39 Min Completed 07/07/2020 45225 Inject/Drain Joint/Bursa Major C ompleted 06/28/202021474 Inject/Drain Joint/Bursa Major C ompleted Medical Devices Description No Information Available Encounters Type Date Location Provider Dx Diagnosis Office Visit 12/13/2020 1:30p Juan Woody PA-C M4 7.817 Spondyls w/o myelopathy or radiculopathy, lumbosacr region M51.37 Other intervertebral disc de generation, lumbosacral region M48.07 Spinal stenosis, lumbosacral region E66.01 Morbid (severe) obesity due to excess calories Z68.42 Body mass index [BMI] 45.0-4 9.9, adult Office Visit 12/08/2020 1:15p Juan Woody PA-C M1 7.11 Unilateral primary osteoarthritis, right knee Office Visit 11/09/2020 11:00a [place] Shawna Woody PA-C M1 7.11 Unilateral primary osteoarthritis, right knee Office Visit 09/21/2020 1:45p [place] Shawna Woody PA-C M1 7.11 Unilateral primary osteoarthritis, right knee Office Visit 07/07/2020 1:00p Juan Woody PA-C M1 7.11 Unilateral primary osteoarthritis, right knee Office Visit 06/28/2020 11:15a Juan Woody PA-C M7 0.62 Trochanteric bursitis, left hip Assessments Date Code Description Provider 12/13/2020 M47.817 Spondylosis without myelopathy or radiculopathy, lumbosacral region Shawna Woody PA-C 12/13/2020 M51.37 Other intervertebral disc degene ration, lumbosacral region Shawna Woody PA-C 12/13/2020 M48.07 Spinal stenosis, lumbosacral reg ion Shawna Woody PA-C 12/13/2020 E66.01 Morbid (severe) obesity due to e xcess calories Shawna Woody PA-C 12/13/2020 Z68.42 Body mass index [BMI] 45.0-49.9, adult Shawna Woody PA-C 12/08/2020 M17.11 Unilateral primary [...] 12/29/2020 1:15 pm - Shawna Woody PA-C at [place] 12/13/2020 - Shawna Woody PA-C* M47.817 Spondylosis without myelopathy or radiculopathy, lumbosacral region * M51.37 Other intervertebral disc degeneration, lumbosacral region* New Orders: * Referral, Ordered: 12/13/20 * Follow up:* Pt has a scheduled appt. (please keep) * M48.07 Spinal stenosis, lumbosacral region * E66.01 Morbid (severe) obesity due to excess calories * Z68.42 Body mass index [BMI] 45.0-49.9, adult Functional Status Description No Information Available Mental Status Description No Information Available Referrals Refer to Reason for Referral Status Appt Date Shawna Woody PA-C MRI Right Knee per [facility] web a [facility] approved passed to shana morton to schedule sw. Created [address] [address] [phone] Shawna Woody PA-C PT Right Knee per [facility] auth is approved for [facility] Created [address] [address] [phone] Shawna Woody PA-C M70.60 TROCHANTERIC BURSITITS UNSPECIFI ED HIP Created [address] [address] [phone] Shawna Woody PA-C OV M70.60 TROCHANTERIC BURSITIS, U NSPECIFIED HIP Created [address] [address] [phone] Shawna Woody PA-C OV - M25.561 RT KNEE Created [address] [place] [address] [phone]
--- OUTSIDE RECORDS SUMMARY | 2021-01-10 15:54 | CCD ---
Author Author [facility] Organization [facility] Address Unknown Phone Unavailable Care Team Providers Care District Wildlife Manager Name Role Phone Calribel Sanabria Unavailable PROBLEMS Type Condition ICD9-CM Code SOU52-LM Code Onset Dates Condition S tatus W/U Status Risk SNOMED Code Notes Problem Mixed stress and urge urinary incontinence N39.46 Active confirmed 121858917 Problem Candidal intertrigo B37.2 Active confirmed 033464310 Problem Atrophic vaginitis N95.2 Active confirmed 5 1506660 Problem Midline cystocele N81.11 Active confirmed 42 8366283 Problem Feeling of incomplete bladder emptying R39.14 A ctive confirmed 879764260 Problem Kidney stone N20.0 Active confirmed 6500844 7 Problem Urge incontinence N39.41 Active confirmed 87 020862 Problem Pelvic organ prolapse quantification stage 1 cystocele N81.10 Active confirmed 863192790 Problem Personal history of colonic polyps Z86.010 Activ e confirmed 810071822 Problem Lumbar spondylosis M47.816 Active confirmed 519078683 Problem Biliary colic K80.50 Active confirmed 183396 05 Problem DJD (degenerative joint disease), lumbosacral M47. 817 Active confirmed 72732788 Problem Essential (primary) hypertension I10 Active conf irmed 08684915 Problem Osteoarthritis of knee, unilateral M17.10 Activ e confirmed 098760582 Problem Hyperlipidemia E78.5 Active confirmed 81831 004 Problem Postmenopausal atrophic vaginitis N95.2 Active con firmed 14212766 Problem IFG (impaired fasting glucose) R73.01 Active confir med 255296933 Problem Recurrent UTI N39.0 Active confirmed 247050 001 Problem Congestive heart failure, un specified HF chronicity, unspecified heart failure type I50.9 Active confirmed 74831752 Problem Vaginal atrophy N95.2 Active confirmed 2971 95898 ALLERGIES Allergen (clinical drug ingredient) Drug/Non Drug Allergy do cumented on EMR Reaction Allergy Type Onset Date Status codeine Codeine Sulfate([facility] Code:[address]-26) Hives Drug Al radamesgy Active ENCOUNTERS from 1960 to 2021-01-06 Encounter Location Date Provider Diagnosis [place] [address] [facility] [phone] [place] [address] Dec, Claribel Cunhaies IMMUNIZATIONS Vaccine Route Administration Date Status Influenza 18 yrs & older Flublok IM Intramuscular Jan 04, 2021 Administered SOCIAL HISTORY Tobacco Use: Social History Observation Description Date Details (start date - stop date) Never Smoker Sex Assigned At : Social History Observation Description Sex Assigned At Unknown Education: Question Answer Notes Level of Education: Not finished High School 10th grade Language: Question Answer Notes Languages spoken: Mohawk Holiness: Question Answer Notes Holiness 08 Restorationist Alcohol Screening: Question Answer Notes Did you [...] Notes Start Da te End Date Status Simvastatin 20 MG 1 tablet in the evening Orally Once a day for 90 da y(s) Active Losartan Potassium 25 MG 1 tablet Orally Once a day for 90 day(s) Active Myrbetriq 50 MG 1 tablet Orally Once a day Not-Taking tiZANidine HCl 4 MG 1 tablet as needed Orally Three times a day Active Gabapentin 400 MG 1 capsule Orally bid Active Macrobid 100 MG 1 capsule with food Orally every 12 hrs for 5 da y(s) Dec, Active Meloxicam 7.5 MG 1 tablet Orally bid Active Culturelle - 1 cap Orally Daily for 30 days 17 Dec, 2020 Active Polytrim 71217-7.1 UNIT/ML 1 gtt ou Ophthalmic Four times a day for 7 day(s) 16 Dec, 2020 Active Tolterodine Tartrate 2 MG 1 tablet Orally Twice a day for 30 day (s) May, Not-Taking Classics Rolling Walker 1 as directed Z74.09 with seat for 90 da y(s) May, Active Furosemide 20 MG 1 tablet Orally Once a day as needed for edema for 90 days Active hydroCHLOROthiazide 12.5 MG 1 tablet in the morning Or ally Once a day for 90 day(s) Active Groove Rolling Walker 1 as directed z74.09 Daily for 90 day(s) May, Active Aspir-81 81 MG 1 tablet Orally Once a day for 90 day(s) Active DULoxetine HCl 20 MG 1 capsule Orally Twice a day for 30 day(s) Active Trospium Chloride ER 60 MG 1 capsule in the morning on an empty stomach or 1 hour before a meal Orally Once a day for 30 day(s) May, Not-Taking Nystatin 599255 UNIT/GM 1 application Externally Twice a day as needed for 30 Active Estradiol 0.1 MG/GM 1/2 gram Vaginal use nightly for two weeks, then twice weekly for 90 day(s) Jul, Not-Taking Oxybutynin Chloride ER 15 MG 1 tablet Orally Once a day Active PROCEDURES No Information RESULTS No Results REASON FOR VISIT urine test results MEDICAL (GENERAL) HISTORY Type Description Date Medical History hyperlipidemia 2B Medical History hypertension, essential Medical History kidney stones Medical History POP Medical History URINARY INCONTINENCE/URGENCY Medical History adenomatous polyp/tubular ad enoma 08/[address] Marroquin Medical History [employer] genetic test n egative for mutation but [...] Medication Name Sig Start Date Stop Date Polytrim 90428-3.1 UNIT/ML 1 gtt ou Ophthalmic Four times a day for 7 day(s) Dec, Culturelle - 1 cap Orally Daily for 30 days Dec, Macrobid 100 MG 1 capsule with food Orally every 12 hrs for 5 day(s) Dec, Next Appt Details Provider Name:Lizet Hanks, 2021-01-19 5 11:15:00 AM, [address], , [place], [address], Provider Name:Yvonne Rogers, 2020-02 03:00:00 PM, [address] [facility], , [place], [address], Provider Name:Jing Santiago, 2021-02-03 01:20:00 PM, [address] [facility], , [place], [address], Provider Name:Mile Mckenzie, 2021-01 11:15:00 AM, [address], , [place], [address], Insurance Providers Payer Name Payer Address Payer Phone Insured Name Patient Relati onship to Insured Coverage Start Date Coverage End Date [facility] COMMUN[facility] PLAN [facility] [address] [facility] [phone] CELE[employer] POOL self
--- OUTSIDE RECORDS SUMMARY | 2021-01-10 15:54 | CCD ---
Author Author [facility] Organization [facility] Address Unknown Phone Unavailable Care Team Providers Care Salesperson Toy Trains And Accessories Name Role Phone Claribel Sanabria Unavailable PROBLEMS Type Condition ICD9-CM Code QHA11-SN Code Onset Dates Condition S tatus W/U Status Risk SNOMED Code Notes Problem Mixed stress and urge urinary incontinence N39.46 Active confirmed 083183494 Problem Candidal intertrigo B37.2 Active confirmed 762085923 Problem Atrophic vaginitis N95.2 Active confirmed 5 3048642 Problem Midline cystocele N81.11 Active confirmed 42 2368819 Problem Feeling of incomplete bladder emptying R39.14 A ctive confirmed 758648188 Problem Kidney stone N20.0 Active confirmed 8868606 7 Problem Urge incontinence N39.41 Active confirmed 87 386181 Problem Pelvic organ prolapse quantification stage 1 cystocele N81.10 Active confirmed 859690069 Problem Personal history of colonic polyps Z86.010 Activ e confirmed 058464964 Problem Lumbar spondylosis M47.816 Active confirmed 834320012 Problem Biliary colic K80.50 Active confirmed 993663 05 Problem DJD (degenerative joint disease), lumbosacral M47. 817 Active confirmed 47979123 Problem Essential (primary) hypertension I10 Active conf irmed 77725959 Problem Osteoarthritis of knee, unilateral M17.10 Activ e confirmed 805467091 Problem Hyperlipidemia E78.5 Active confirmed 33788 004 Problem Postmenopausal atrophic vaginitis N95.2 Active con firmed 80570448 Problem IFG (impaired fasting glucose) R73.01 Active confir med 133146897 Problem Recurrent UTI N39.0 Active confirmed 464511 001 Problem Congestive heart failure, un specified HF chronicity, unspecified heart failure type I50.9 Active confirmed 78371432 Problem Vaginal atrophy N95.2 Active confirmed 2971 28272 ALLERGIES Allergen (clinical drug ingredient) Drug/Non Drug Allergy do cumented on EMR Reaction Allergy Type Onset Date Status codeine Codeine Sulfate([facility] Code:[address]-72) Hives Drug Al lakshmi Active ENCOUNTERS from 1960 to 2021-01-06 Encounter Location Date Provider Diagnosis [place] [address] [facility] [phone] [place] [address] Dec, Claribel Sanabria Dysuria R30.0 ; Acute conjun ctivitis of both eyes, unspecified acute conjunctivitis type H10.33 and Encounter for immunization Z23 IMMUNIZATIONS Vaccine Route Administration Date Status Influenza [...] grade Language: Question Answer Notes Languages spoken: Hungarian Pentecostalism: Question Answer Notes Pentecostalism 08 Jew Alcohol Screening: Question Answer Notes Did you [...] REASON FOR REFERRAL No Information VITAL SIGNS Weight 306 lbs Dec, Weight-kg 138.8 kg Dec, Height 65.50 in Dec, BMI 50.14 kg/m2 Dec, Heart Rate 70 /min Dec, Respiratory Rate 18 /min Dec, Temperature 97.1 degrees Fahrenheit Dec, Oximetry 97 Dec, Blood pressure systolic 130 mm Hg Dec, Blood pressure diastolic 80 mm Hg Dec, MEDICATIONS Medication SIG (Take, Route, Frequency, Duration) [...] 30 days 17 Dec, 2020 Active Polytrim 60923-6.1 UNIT/ML 1 gtt ou Ophthalmic Four times a day for 7 day(s) Dec, Active Tolterodine Tartrate 2 MG 1 tablet [...] day for 30 day(s) May, Not-Taking Nystatin 377977 UNIT/GM 1 application Externally Twice a day as needed for 30 Active Estradiol 0.1 MG/GM 1/2 gram Vaginal use nightly for two weeks, then twice weekly for 90 day(s) Jul, Not-Taking Oxybutynin Chloride ER 15 MG 1 tablet Orally Once a day Active PROCEDURES from 1960 to 2021-01-06 Procedure Date Ordered Result Body Site Imm: Flublok Quadrivalent 18 years & older 0.5mL IM Influenza 20 10-01-16 N/A RESULTS Component Value Reference Range Urinalysis, no Micro Reviewed date:01/04/2021 11:32:27 Interpretation: Performing Lab:[facility], ,[place] [address] Spec gravity 1.020 1.002 - 1.035 pH 5 5.0 - 9.0 Leukocyte trace Negative - Nitrate + Negative - Protein trace Negative - mg/dl Glucose norm Negative - mg/dl Ketones neg Negative - mg/dl Urobili neg Normal - mg/dl Bilirubin neg Negative - Blood neg Negative - Internal QC Acceptable (Y/N) yes URINE CULTURE Reviewed date:01/06/2021 08:47:10 Interpretation: Performing Lab:[facility], [facility] [address] [facility] [id number] , ,[place] [address] REASON FOR VISIT ? UTI MEDICAL (GENERAL) HISTORY Type Description Date Medical History hyperlipidemia 2B Medical History hypertension, essential Medical History kidney stones Medical History POP Medical History URINARY INCONTINENCE/URGENCY Medical History adenomatous polyp/tubular ad enoma 08/[address] 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 Medical History Lifetime breast cancer risk 32 % annual breast MRI recommended Medical History glaucoma Surgical History colonoscopy with adenomatous polyp 07/29, 08/2017 Surgical History BTL Surgical History D&C Surgical History EMB Surgical History Surgical History c section Surgical History lithotripsy 2016 Surgical History Right kidney stone extraction 2017 Surgical History glaucoma laser surgery 2016 Surgical History R TORN MENISCUS JULY-2017 Surgical History gallbladder 02/2020 Hospitalization History surgery related Goals Section No Information Health Concerns No Information MEDICAL EQUIPMENT No Information MENTAL STATUS No Information FUNCTIONAL STATUS No Information ASSESSMENTS Encounter Date Diagnosis Assessment Notes Treatment Notes Treatm ent Clinical Notes Dec, Dysuria (ICD-10 - R30.0) Suspect UTI; start Macrobid; Urine for CX Dec, Acute conjunctivitis of both eyes, unspecified acute conjunctivitis type (ICD-10 - H10.33) Will treat for conjunctivitis Dec, Encounter for immunization (ICD-10 - Z23) Flu vax today Dec, Other Total time greta ng for the patient on the day of the encounter was 20 min PLAN OF TREATMENT Medication Medication Name Sig Start Date Stop Date Polytrim 86562-6.1 UNIT/ML 1 gtt ou Ophthalmic Four times a day for 7 day(s) Dec, Culturelle - 1 cap Orally Daily for 30 days Dec, Macrobid 100 MG 1 capsule with food Orally every 12 hrs for 5 day(s) Dec, Treatment Notes Assessment Notes Clinical Notes Dysuria Suspect UTI; start M acrobid; Urine for CX Acute conjunctivitis of both eyes, unspecified acute conjunc tivitis type Will treat for conjunctivitis Encounter for immunization Flu vax today Next Appt Details Provider Name:Lizet Hanks, 2021-01-19 5 11:15:00 AM, [address], , [place], [address], Provider Name:Yvonne Rogers, 2020-02 03:00:00 PM, [address] [facility], , [place], [address], Provider Name:Jing Santiago, 2021-02-03 01:20:00 PM, [address] [facility], , [place], [address], Provider Name:Mile Mckenzie, 2021-01 11:15:00 AM, [address], , [place], [address], Insurance Providers Payer Name Payer Address Payer Phone Insured Name Patient Relati onship to Insured Coverage Start Date Coverage End Date [facility] COMM[facility] PLAN [facility] [address] [facility] [id number] CELESTINO POOL self
--- OUTSIDE RECORDS SUMMARY | 2021-01-10 15:54 | CCD ---
Author Author [facility] Organization [facility] Address Unknown Phone Unavailable Care Team Providers Care Electric Arc Furnace Operator Name Role Phone Claribel Sanabria Unavailable PROBLEMS Type Condition ICD9-CM Code [id number] Code Onset Dates Condition S tatus W/U Status Risk SNOMED Code Notes Problem Mixed stress and urge urinary incontinence N39.46 Active confirmed 364544656 Problem Candidal intertrigo B37.2 Active confirmed 173217378 Problem Atrophic vaginitis N95.2 Active confirmed 5 2965996 Problem Midline cystocele N81.11 Active confirmed 42 9470464 Problem Feeling of incomplete bladder emptying R39.14 A ctive confirmed 287119610 Problem Kidney stone N20.0 Active confirmed 7120628 7 Problem Urge incontinence N39.41 Active confirmed 87 236788 Problem Pelvic organ prolapse quantification stage 1 cystocele N81.10 Active confirmed 463209644 Problem Personal history of colonic polyps Z86.010 Activ e confirmed 958732272 Problem Lumbar spondylosis M47.816 Active confirmed 068540981 Problem Biliary colic K80.50 Active confirmed 428222 05 Problem DJD (degenerative joint disease), lumbosacral M47. 817 Active confirmed 88366572 Problem Essential (primary) hypertension I10 Active conf irmed 76430278 Problem Osteoarthritis of knee, unilateral M17.10 Activ e confirmed 021794454 Problem Hyperlipidemia E78.5 Active confirmed 23795 004 Problem Postmenopausal atrophic vaginitis N95.2 Active con firmed 96111358 Problem IFG (impaired fasting glucose) R73.01 Active confir med 747786961 Problem Recurrent UTI N39.0 Active confirmed 920259 001 Problem Congestive heart failure, un specified HF chronicity, unspecified heart failure type I50.9 Active confirmed 35459303 Problem Vaginal atrophy N95.2 Active confirmed 2971 53040 ALLERGIES Allergen (clinical drug ingredient) Drug/Non Drug Allergy do cumented on EMR Reaction Allergy Type Onset Date Status codeine Codeine Sulfate([facility] Code:[address]-64) Hives Drug Al lergy Active ENCOUNTERS from 1960 to 2021-01-07 Encounter Location Date Provider Diagnosis [place] [address] [facility] [phone] [place] [address] Dec, Claribel Cunhaies IMMUNIZATIONS Vaccine Route Administration [...] grade Language: Question Answer Notes Languages spoken: Swedish Mu-Ism: Question Answer Notes Mu-Ism 08 Pentecostal Alcohol Screening: Question Answer Notes Did you [...] Notes Start Da te End Date Status Losartan Potassium 25 MG 1 tablet Orally Once a day for 90 day(s) Active Oxybutynin Chloride ER 15 MG 1 tablet Orally Once a day Active Gabapentin 400 MG 1 capsule Orally bid Active Cephalexin 250 MG 1 capsule Orally every 6 hrs for 5 day(s) Dec, Active Simvastatin 20 MG 1 tablet in the evening Orally Once a day for 90 da y(s) Active Macrobid 100 MG 1 capsule with food Orally every 12 hrs for 5 da y(s) Dec, Active Myrbetriq 50 MG 1 tablet Orally Once a day Not-Taking Culturelle - 1 cap Orally Daily for 30 days 17 Dec, 2020 Active Polytrim 83525-7.1 UNIT/ML 1 gtt ou Ophthalmic Four times a day for 7 day(s) Dec, Active Tolterodine Tartrate 2 MG 1 tablet Orally Twice a day for 30 day (s) May, Not-Taking Furosemide 20 MG 1 tablet Orally Once a day as needed for edema for 90 days Active tiZANidine HCl 4 MG 1 tablet as needed Orally Three times a day Active hydroCHLOROthiazide 12.5 MG 1 tablet in [...] Once a day for 90 day(s) Active Classics Rolling Walker 1 as directed Z74.09 with seat for 90 da y(s) May, Active Meloxicam 7.5 MG 1 tablet Orally bid Active Nystatin 947336 UNIT/GM 1 application Externally Twice a day as needed for 30 Active Estradiol 0.1 MG/GM 1/2 gram Vaginal use nightly for two weeks, then twice weekly for 90 day(s) Jul, Not-Taking Groove Rolling Walker 1 as directed z74.09 Daily for 90 day(s) May, Active PROCEDURES No Information RESULTS No Results REASON FOR VISIT return call MEDICAL (GENERAL) HISTORY Type Description Date Medical History hyperlipidemia 2B Medical History hypertension, essential Medical History kidney stones Medical History POP Medical History URINARY INCONTINENCE/URGENCY Medical History adenomatous polyp/tubular ad enoma 08/[address] Marroquin Medical History [employer] genetic test n egative for mutation but [...] Name Sig Start Date Stop Date Polytrim 69192-3.1 UNIT/ML 1 gtt ou Ophthalmic Four times a day for 7 day(s) Dec, Culturelle - 1 cap Orally Daily for 30 days Dec, Cephalexin 250 MG 1 capsule Orally every 6 hrs for 5 day(s) 19 N , 2020 Macrobid 100 MG 1 capsule with food Orally every 12 hrs for 5 day(s) Dec, Next Appt Details Provider Name:Lizet Hanks, 2021-01-19 11:15:00 AM, [address], , [place], [address], Provider Name:Yvonne Rogers, 2020-02 03:00:00 PM, [address] [facility], , [place], [address], Provider Name:Jing Santiago, 2021-02-03 01:20:00 PM, [address] [facility], , [place], [address], Provider Name:Mile Mckenzie, 2021-01 11:15:00 AM, [address], , [place], [address], Insurance Providers Payer Name Payer Address Payer Phone Insured Name Patient Relati onship to Insured Coverage Start Date Coverage End Date [facility] COMMUNITY PLAN [facility] [address] [facility] [phone] [employer] POOL self
--- OUTSIDE RECORDS SUMMARY | 2021-01-10 15:54 | CCD ---
Author Author [facility] Organization [facility] em[facility] Address Unknown Phone Unavailable Care Team Providers Care Project Systems Engineer Name Role Phone Yvonne Rogers Unavailable PROBLEMS Type Condition ICD9-CM Code [id number] Code Onset Dates Condition S tatus W/U Status Risk SNOMED Code Notes Problem Candidal intertrigo B37.2 Active confirmed 355377909 Problem Postmenopausal atrophic vaginitis N95.2 Active con firmed 86574296 Problem Midline cystocele N81.11 Active confirmed 42 5130754 Problem Mixed stress and urge urinary incontinence N39.46 Active confirmed 875727140 Problem Kidney stone N20.0 Active confirmed 0028526 7 Problem Atrophic vaginitis N95.2 Active confirmed 5 6738277 Problem Pelvic organ prolapse quantification stage 1 cystocele N81.10 Active confirmed 843879893 Problem Feeling of incomplete bladder emptying R39.14 A ctive confirmed 531047246 Problem Essential (primary) hypertension I10 Active conf irmed 94230548 Problem Personal history of colonic polyps Z86.010 Activ e confirmed 933326878 Problem IFG (impaired fasting glucose) R73.01 Active confir med 106179180 Problem Vaginal atrophy N95.2 Active confirmed 2971 26165 Problem Hyperlipidemia E78.5 Active confirmed 75768 004 Problem DJD (degenerative joint disease), lumbosacral M47. 817 Active confirmed 13215731 Problem Urge incontinence N39.41 Active confirmed 87 630904 Problem Recurrent UTI N39.0 Active confirmed 012447 001 Problem Lumbar spondylosis M47.816 Active confirmed 303136054 Problem Biliary colic K80.50 Active confirmed 532438 05 Problem Congestive heart failure, un specified HF chronicity, unspecified heart failure type I50.9 Active confirmed 70808781 ALLERGIES Allergen (clinical drug ingredient) Drug/Non Drug Allergy do cumented on EMR Reaction Allergy Type Onset Date Status codeine Codeine Sulfate([facility] Code:[address]-78) Hives Drug Al radamesgy Active ENCOUNTERS from 1960 to 2021-01-04 Encounter Location Date Provider Diagnosis [facility] [address] [facility] [phone] [place] [address] 16 Dec, 2020 Yvonne Rogers IMMUNIZATIONS Vaccine Route Administration Date Status Influenza [...] grade Language: Question Answer Notes Languages spoken: Senegalese Nondenominational: Question Answer Notes Nondenominational 08 Worship Alcohol Screening: Question Answer Notes Did you [...] Notes Start Da te End Date Status Gabapentin 400 MG 1 capsule Orally bid Active Simvastatin 20 MG 1 tablet in the evening Orally Once a day for 90 da y(s) Active Meloxicam 7.5 MG 1 tablet Orally bid Active Furosemide 20 MG 1 tablet Orally Once a day as needed for edema for 90 days Active Myrbetriq 50 MG 1 tablet Orally Once a day Not-Taking hydroCHLOROthiazide 12.5 MG 1 tablet in the morning Or ally Once a day for 90 day(s) Active Trospium Chloride ER 60 MG 1 capsule in the morning on an empty stomach or 1 hour before a meal Orally Once a day for 30 day(s) May, Not-Taking Polytrim 68976-7.1 UNIT/ML 1 gtt ou Ophthalmic Four times a day for 7 day(s) Dec, Active Macrobid 100 MG 1 capsule with food Orally every 12 hrs for 5 da y(s) Dec, Active Tolterodine Tartrate 2 MG 1 tablet Orally Twice a day for 30 day (s) May, Not-Taking DULoxetine HCl 20 MG 1 capsule Orally Twice a day for 30 day(s) Active Classics Rolling Walker 1 as directed Z74.09 with seat for 90 da y(s) May, Active Estradiol 0.1 MG/GM 1/2 gram Vaginal use nightly for two weeks, then twice weekly for 90 day(s) Jul, Not-Taking Oxybutynin Chloride ER 15 MG 1 tablet Orally Once a day Active tiZANidine HCl 4 MG 1 tablet as needed Orally Three times a day Active Groove Rolling Walker 1 as directed z74.09 Daily for 90 day(s) May, Active Nystatin 579818 UNIT/GM 1 application Externally Twice a day as needed for 30 Active Aspir-81 81 MG 1 tablet Orally Once a day for 90 day(s) Active Losartan Potassium 25 MG 1 tablet Orally Once a day for 90 day(s) Active PROCEDURES No Information RESULTS No Results REASON FOR VISIT ? UTI MEDICAL (GENERAL) HISTORY Type Description Date Medical History hyperlipidemia 2B Medical History hypertension, essential Medical History kidney stones Medical History POP Medical History URINARY INCONTINENCE/URGENCY Medical History adenomatous polyp/tubular ad enoma 08/[address] Marroquin Medical History [employer] [facility] genetic test n egative for mutation but [...] Medication Name Sig Start Date Stop Date Macrobid 100 MG 1 capsule with food Orally every 12 hrs for 5 day(s) Dec, Polytrim 71871-0.1 UNIT/ML 1 gtt ou Ophthalmic Four times a day for 7 day(s) Dec, Next Appt Details Provider Name:Lizet L Demario, 2021-01-19 5 11:15:00 AM, [address] [facility], , [place], [address], Provider Name:Yvonne Rogers, 2020-02 03:00:00 PM, [address] [place] [address], , [place], [address], Provider Name:Jing Santiago, 2021-02-03 01:20:00 PM, [address] [place] [address], , [place], [address], Insurance Providers Payer Name Payer Address Payer Phone Insured Name Patient Relati onship to Insured Coverage Start Date Coverage End Date [facility] COMM[facility] [employer] [facility] [employer] [address] [facility] [address] [employer] POOL self
--- OUTSIDE RECORDS SUMMARY | 2021-01-10 15:54 | CCD ---
Author Author [facility] Organization [facility] Address Unknown Phone Unavailable Care Team Providers Care Quill Winder Name Role Phone Yvonne Rogers Unavailable PROBLEMS ALLERGIES ENCOUNTERS from 1960 to 2021-01-04 IMMUNIZATIONS No Information SOCIAL HISTORY REASON FOR REFERRAL No Information VITAL SIGNS MEDICATIONS PROCEDURES No Information RESULTS No Results REASON FOR VISIT MEDICAL (GENERAL) HISTORY Goals Section Health Concerns MEDICAL EQUIPMENT No Information MENTAL STATUS FUNCTIONAL STATUS ASSESSMENTS No Information PLAN OF TREATMENT Insurance Providers
--- OUTSIDE RECORDS SUMMARY | 2021-01-10 15:54 | CCD ---
Author Author [facility] Organization [facility] ems Address Unknown Phone Unavailable Care Team Providers Care Buckle Strap Drum Operator Name Role Phone Yvonne Rogers Unavailable PROBLEMS Type Condition ICD9-CM Code [id number] Code Onset Dates Condition S tatus W/U Status Risk SNOMED Code Notes Problem Mixed stress and urge urinary incontinence N39.46 Active confirmed 341719835 Problem Candidal intertrigo B37.2 Active confirmed 987543665 Problem Atrophic vaginitis N95.2 Active confirmed 5 7904518 Problem Midline cystocele N81.11 Active confirmed 42 0620203 Problem Feeling of incomplete bladder emptying R39.14 A ctive confirmed 825975757 Problem Kidney stone N20.0 Active confirmed 6488829 7 Problem Urge incontinence N39.41 Active confirmed 87 190734 Problem Pelvic organ prolapse quantification stage 1 cystocele N81.10 Active confirmed 733240775 Problem Personal history of colonic polyps Z86.010 Activ e confirmed 425185924 Problem Lumbar spondylosis M47.816 Active confirmed 822514485 Problem Biliary colic K80.50 Active confirmed 635080 05 Problem DJD (degenerative joint disease), lumbosacral M47. 817 Active confirmed 44914896 Problem Essential (primary) hypertension I10 Active conf irmed 99777565 Problem Osteoarthritis of knee, unilateral M17.10 Activ e confirmed 461145818 Problem Hyperlipidemia E78.5 Active confirmed 29652 004 Problem Postmenopausal atrophic vaginitis N95.2 Active con firmed 27850318 Problem IFG (impaired fasting glucose) R73.01 Active confir med 633905996 Problem Recurrent UTI N39.0 Active confirmed 745030 001 Problem Congestive heart failure, un specified HF chronicity, unspecified heart failure type I50.9 Active confirmed 00385989 Problem Vaginal atrophy N95.2 Active confirmed 2971 69685 ALLERGIES Allergen (clinical drug ingredient) Drug/Non Drug Allergy do cumented on EMR Reaction Allergy Type Onset Date Status codeine Codeine Sulfate([facility] Code:[address]-93) Hives Drug Al lergy Active ENCOUNTERS from 1960 to 2021-01-05 Encounter Location Date Provider Diagnosis [address] [phone] [place] [address] Dec, Yvonnesarah Rogers IMMUNIZATIONS Vaccine Route Administration Date Status [...] grade Language: Question Answer Notes Languages spoken: Icelandic Church: Question Answer Notes Church 08 Adventist Alcohol Screening: Question Answer Notes Did you [...] 30 days 17 Dec, 2020 Active Polytrim 92695-8.1 UNIT/ML 1 gtt ou Ophthalmic Four times [...] day for 30 day(s) May, Not-Taking Nystatin 831000 UNIT/GM 1 application Externally Twice a day as needed for 30 Active Estradiol 0.1 MG/GM 1/2 gram Vaginal use nightly for two weeks, then twice weekly for 90 day(s) Jul, Not-Taking Oxybutynin Chloride ER 15 MG 1 tablet Orally Once a day Active PROCEDURES No Information RESULTS No Results REASON FOR VISIT loose stools MEDICAL (GENERAL) HISTORY Type Description Date Medical History hyperlipidemia 2B Medical History hypertension, essential Medical History kidney stones Medical History POP Medical History URINARY INCONTINENCE/URGENCY Medical History adenomatous polyp/tubular ad enoma 08/[address] Marroquin Medical History [employer] genetic test n egative for mutation but [...] Name Sig Start Date Stop Date Polytrim 37841-4.1 UNIT/ML 1 gtt ou Ophthalmic Four times a day for 7 day(s) Dec, Culturelle - 1 cap Orally Daily for 30 days Dec, Macrobid 100 MG 1 capsule with food Orally every 12 hrs for 5 day(s) Dec, Next Appt Details Provider Name:Lizet Hanks, 2021-01-19 5 11:15:00 AM, [address], , [place], [address], Provider Name:Yvonne Rogers, 2020-02 03:00:00 PM, [address] [facility], , [place], [address], Provider Name:Jing Santiago, 2021-02-03 01:20:00 PM, [address] [facility], , [place], [address], Provider Name:Mile Mckenzie, 2021-01 11:15:00 AM, [address] [facility] [address] [facility], , [place], [address], Insurance Providers Payer Name Payer Address Payer Phone Insured Name Patient Relati onship to Insured Coverage Start Date Coverage End Date [facility] [address] [facility] [address] [phone] [employer] POOL self
--- OUTSIDE RECORDS SUMMARY | 2021-01-10 15:54 | CCD ---
Author Author [facility] Organization [facility] ems Address Unknown Phone Unavailable Care Team Providers Care Hadoop Admin Name Role Phone Yvonne Rogers Unavailable PROBLEMS Type Condition ICD9-CM Code TIS81-DM Code Onset Dates Condition S tatus W/U Status Risk SNOMED Code Notes Problem Mixed stress and urge urinary incontinence N39.46 Active confirmed 157471732 Problem Candidal intertrigo B37.2 Active confirmed 611650215 Problem Atrophic vaginitis N95.2 Active confirmed 5 5900856 Problem Midline cystocele N81.11 Active confirmed 42 1452897 Problem Feeling of incomplete bladder emptying R39.14 A ctive confirmed 844251644 Problem Kidney stone N20.0 Active confirmed 3053473 7 Problem Urge incontinence N39.41 Active confirmed 87 028127 Problem Pelvic organ prolapse quantification stage 1 cystocele N81.10 Active confirmed 586589786 Problem Personal history of colonic polyps Z86.010 Activ e confirmed 395763592 Problem Lumbar spondylosis M47.816 Active confirmed 146518860 Problem Biliary colic K80.50 Active confirmed 178939 05 Problem DJD (degenerative joint disease), lumbosacral M47. 817 Active confirmed 75108803 Problem Essential (primary) hypertension I10 Active conf irmed 20411873 Problem Osteoarthritis of knee, unilateral M17.10 Activ e confirmed 345638790 Problem Hyperlipidemia E78.5 Active confirmed 66052 004 Problem Postmenopausal atrophic vaginitis N95.2 Active con firmed 54658979 Problem IFG (impaired fasting glucose) R73.01 Active confir med 520884084 Problem Recurrent UTI N39.0 Active confirmed 564332 001 Problem Congestive heart failure, un specified HF chronicity, unspecified heart failure type I50.9 Active confirmed 56873990 Problem Vaginal atrophy N95.2 Active confirmed 2971 32728 ALLERGIES Allergen (clinical drug ingredient) Drug/Non Drug Allergy do cumented on EMR Reaction Allergy Type Onset Date Status codeine Codeine Sulfate([facility] Code:[address]-58) Hives Drug Al lakshmi Active ENCOUNTERS from 1960 to 2021-01-06 Encounter Location Date Provider Diagnosis [facility] [address] [facility] [phone] [place] [address] 17 Dec, 2020 Yvonne Rogers Osteoarthritis of knee, unil ateral M17.10 IMMUNIZATIONS Vaccine Route Administration Date Status Influenza [...] grade Language: Question Answer Notes Languages spoken: Wolof Temple: Question Answer Notes Temple 08 Zoroastrian Alcohol Screening: Question Answer Notes Did you [...] never smoker never smoker REASON FOR REFERRAL from 1960 to 2021-01-06 Reason please evaluate and treat Diagnosis 1 Osteoarthritis of knee, unil ateral (M17.10) Referral Organization [facility] Referring Provider First Name Yvonne Referring Provider Last Name Sue Referring Provider Specialty Family Medicine Referred Provider [facility] Referred Provider Specialty Pain Medicine Referral Priority Routine General Notes Echo Rios 01/05/2021 4:17 :43 PM > faxed VITAL SIGNS No information MEDICATIONS Medication SIG [...] 30 days 17 Dec, 2020 Active Polytrim 03222-1.1 UNIT/ML 1 gtt ou Ophthalmic Four times [...] day for 30 day(s) May, Not-Taking Nystatin 921630 UNIT/GM 1 application Externally Twice a day as needed for 30 Active Estradiol 0.1 MG/GM 1/2 gram Vaginal use nightly for two weeks, then twice weekly for 90 day(s) Jul, Not-Taking Oxybutynin Chloride ER 15 MG 1 tablet Orally Once a day Active PROCEDURES No Information RESULTS No Results REASON FOR VISIT right knee referral [facility] pain clinic MEDICAL (GENERAL) HISTORY Type Description Date Medical History hyperlipidemia 2B Medical History hypertension, essential Medical History kidney stones Medical History POP Medical History URINARY INCONTINENCE/URGENCY Medical History adenomatous polyp/tubular ad enoma 08/[address] 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 Medical History Lifetime breast cancer risk 32 % annual breast MRI recommended Medical History glaucoma Surgical History colonoscopy with adenomatous polyp 07/29, 08/2017 Surgical History BTL Surgical History D&C Surgical History EMB Surgical History Surgical History c section Surgical History lithotripsy 2017 Surgical History Right kidney stone extraction 2017 Surgical History glaucoma laser surgery 2016 Surgical History R TORN MENISCUS JULY-2017 Surgical History gallbladder 02/2020 Hospitalization History surgery related Goals Section No Information Health Concerns No Information MEDICAL EQUIPMENT No Information MENTAL STATUS No Information FUNCTIONAL STATUS No Information ASSESSMENTS Encounter Date Diagnosis Assessment Notes Treatment Notes Treatm ent Clinical Notes Dec, Osteoarthritis of knee, unilateral (ICD-10 - M17 .10) PLAN OF TREATMENT Medication Medication Name Sig Start Date Stop Date Polytrim 48712-5.1 UNIT/ML 1 gtt ou Ophthalmic Four times a day for 7 day(s) Dec, Culturelle - 1 cap Orally Daily for 30 days Dec, Macrobid 100 MG 1 capsule with food Orally every 12 hrs for 5 day(s) Dec, Referrals Referral Date Details [facility] Next Appt Details Provider Name:Lizet Hanks, 2021-01-19 5 11:15:00 AM, [address], , [place], [address], Provider Name:Yvonne Rogers, 2020-02 03:00:00 PM, [address] [facility], , [place], [address], Provider Name:Jing Santiago, 2021-02-03 01:20:00 PM, [address] [facility], , [place], [address], Provider Name:Mile Mckenzie, 2021-01 11:15:00 AM, [address] [facility] [address] [facility], , [place], [address], Insurance Providers Payer Name Payer Address Payer Phone Insured Name Patient Relati onship to Insured Coverage Start Date Coverage End Date [facility] COMMUNITY PLAN [facility] [address] [facility] [address] [employer] PO[employer] self
--- OUTSIDE RECORDS SUMMARY | 2021-01-10 15:54 | CCD ---
Author Author [facility] Organization [facility] Address Unknown Phone Unavailable Care Team Providers Care Softlines Supervisor Name Role Phone Yvonne Rogers Unavailable PROBLEMS ALLERGIES ENCOUNTERS from 1960 to 2020-12-31 IMMUNIZATIONS No Information SOCIAL HISTORY REASON FOR REFERRAL from 1960 to 2020-12-31 VITAL SIGNS MEDICATIONS PROCEDURES No Information RESULTS No Results REASON FOR VISIT MEDICAL (GENERAL) HISTORY Goals Section Health Concerns MEDICAL EQUIPMENT No Information MENTAL STATUS FUNCTIONAL STATUS ASSESSMENTS PLAN OF TREATMENT Insurance Providers
--- OUTSIDE RECORDS SUMMARY | 2021-01-10 15:54 | CCD ---
Author Author [facility] Syst ems Organization [facility] ems Address Unknown Phone Unavailable Care Team Providers Care Nuclear Engineering Technician Name Role Phone Lizet Hanks Unavailable PROBLEMS Type Condition ICD9-CM Code [id number] Code Onset Dates Condition S tatus W/U Status Risk SNOMED Code Notes Problem Postmenopausal atrophic vaginitis N95.2 Active con firmed 92779469 Problem Mixed stress and urge urinary incontinence N39.46 Active confirmed 508153602 Problem Candidal intertrigo B37.2 Active confirmed 095433747 Problem Atrophic vaginitis N95.2 Active confirmed 5 3181174 Problem Midline cystocele N81.11 Active confirmed 42 6445860 Problem Feeling of incomplete bladder emptying R39.14 A ctive confirmed 544309693 Problem Kidney stone N20.0 Active confirmed 1221006 7 Problem Hyperlipidemia E78.5 Active confirmed 92680 004 Problem Essential (primary) hypertension I10 Active conf irmed 72678655 Problem Personal history of colonic polyps Z86.010 Activ e confirmed 447244761 Problem Congestive heart failure, un specified HF chronicity, unspecified heart failure type I50.9 Active confirmed 73759287 Problem Urge incontinence N39.41 Active confirmed 87 037992 Problem Vaginal atrophy N95.2 Active confirmed 2971 39661 Problem Pelvic organ prolapse quantification stage 1 cystocele N81.10 Active confirmed 338671169 Problem IFG (impaired fasting glucose) R73.01 Active confir med 138729645 Problem Recurrent UTI N39.0 Active confirmed 529144 001 Problem Lumbar spondylosis M47.816 Active confirmed 484226767 Problem Biliary colic K80.50 Active confirmed 598722 05 ALLERGIES Allergen (clinical drug ingredient) Drug/Non Drug Allergy do cumented on EMR Reaction Allergy Type Onset Date Status codeine Codeine Sulfate([facility] Code:[address]-84) Hives Drug Al lergy Active ENCOUNTERS from 1960 to 2020-12-14 Encounter Location Date Provider Diagnosis [facility] [address] [phone] [place] [address] Nov, Lizet Recore Urge incontinence N39.41 IMMUNIZATIONS No Information SOCIAL HISTORY Tobacco Use: Social History Observation Description Date Details (start date - stop date) Never Smoker Sex Assigned At : Social History Observation Description Sex Assigned At Unknown Education: Question Answer Notes Level of Education: Not finished High School 10th grade Language: Question Answer Notes Languages spoken: South African Adventist: Question Answer Notes Adventist 08 Oriental Orthodox Alcohol Screening: Question Answer Notes Did you [...] Once a day for 90 day(s) Active Simvastatin 20 MG 1 tablet in the evening Orally Once a day for 90 da y(s) Active Furosemide 20 MG 1 tablet Orally Once a day as needed for edema for 90 days Active Meloxicam 7.5 MG 1 tablet Orally bid Active Gabapentin 400 MG 1 capsule Orally bid Active Myrbetriq 50 MG 1 tablet Orally Once a day Not-Taking Oxybutynin Chloride ER 15 MG 1 tablet Orally Once a day Active Nystatin 649298 UNIT/GM 1 application Externally Twice a day as needed for 30 Active Estradiol 0.1 MG/GM 1/2 gram Vaginal use nightly for two weeks, then twice weekly for 90 day(s) Jul, Active DULoxetine HCl 20 MG 1 capsule Orally Twice a day for 30 day(s) Active Tolterodine Tartrate 2 MG 1 tablet Orally Twice a day for 30 day (s) May, Active tiZANidine HCl 4 MG 1 tablet as needed Orally Three times a day Active Groove Rolling Walker 1 as directed z74.09 Daily for 90 day(s) May, Active hydroCHLOROthiazide 12.5 MG 1 tablet in the morning Or ally Once a day for 90 day(s) Active Classics Rolling Walker 1 as directed Z74.09 with seat for 90 da y(s) May, Active PROCEDURES No Information RESULTS No Results REASON FOR VISIT refill MEDICAL (GENERAL) HISTORY Type Description Date Medical History hyperlipidemia 2B Medical History hypertension, essential Medical History kidney stones Medical History POP Medical History URINARY INCONTINENCE/URGENCY Medical History adenomatous polyp/tubular ad enoma 08/[address] Marroquin Medical History Adsame genetic test n egative for mutation but [...] Notes Treatment Notes Treatm ent Clinical Notes Nov, Urge incontinence (ICD-10 - N39.41) PLAN OF TREATMENT Medication Medication Name Sig Start Date Stop Date Simvastatin 20 MG 1 tablet in the evening Orally Once a day for 90 day(s) Oxybutynin Chloride ER 15 MG 1 tablet Orally Once a day Next Appt Details Provider Name:Yvonne Rogers, 2020-02 04:00:00 PM, [address], , [place], [address], Provider Name:Lizet Hanks, 2021-01-19 5 01:30:00 PM, [address] [facility], , [place], [address], Provider Name:Jing Jack, 2021-02-03 01:20:00 PM, [address], , [place], [address], Insurance Providers Payer Name Payer Address Payer Phone Insured Name Patient Relati onship to Insured Coverage Start Date Coverage End Date [facility] COMM[facility] PLAN [facility] [address] [facility] [address] [phone] [employer] POOL self
--- OUTSIDE RECORDS SUMMARY | 2021-01-10 15:54 | CCD ---
Author Author [facility] Syst ems Organization [facility] ems Address Unknown Phone Unavailable Care Team Providers Care Ceramics Instructor Name Role Phone Yvonne Rogers Unavailable PROBLEMS Type Condition ICD9-CM Code [id number] Code Onset Dates Condition S tatus W/U Status Risk SNOMED Code Notes Problem Mixed stress and urge urinary incontinence N39.46 Active confirmed 499036786 Problem Candidal intertrigo B37.2 Active confirmed 511086741 Problem Atrophic vaginitis N95.2 Active confirmed 5 0667235 Problem Midline cystocele N81.11 Active confirmed 42 0860529 Problem Feeling of incomplete bladder emptying R39.14 A ctive confirmed 042583758 Problem Kidney stone N20.0 Active confirmed 7052714 7 Problem Urge incontinence N39.41 Active confirmed 87 784709 Problem Pelvic organ prolapse quantification stage 1 cystocele N81.10 Active confirmed 002075593 Problem Personal history of colonic polyps Z86.010 Activ e confirmed 800898524 Problem Lumbar spondylosis M47.816 Active confirmed 795974279 Problem Biliary colic K80.50 Active confirmed 225284 05 Problem DJD (degenerative joint disease), lumbosacral M47. 817 Active confirmed 75510779 Problem Essential (primary) hypertension I10 Active conf irmed 37358052 Problem Osteoarthritis of knee, unilateral M17.10 Activ e confirmed 228643031 Problem Hyperlipidemia E78.5 Active confirmed 79614 004 Problem Postmenopausal atrophic vaginitis N95.2 Active con firmed 24838143 Problem IFG (impaired fasting glucose) R73.01 Active confir med 382959149 Problem Recurrent UTI N39.0 Active confirmed 571902 001 Problem Congestive heart failure, un specified HF chronicity, unspecified heart failure type I50.9 Active confirmed 24657835 Problem Vaginal atrophy N95.2 Active confirmed 2971 03753 ALLERGIES Allergen (clinical drug ingredient) Drug/Non Drug Allergy do cumented on EMR Reaction Allergy Type Onset Date Status codeine Codeine Sulfate([facility] Code:[address]-56) Hives Drug Al lergy Active ENCOUNTERS from 1960 to 2021-01-07 Encounter Location Date Provider Diagnosis [place] [id number] [facility] [phone] [place] [address] Dec, Yvonnesarah Rogers IMMUNIZATIONS Vaccine Route Administration [...] grade Language: Question Answer Notes Languages spoken: Mongolian Gnosticist: Question Answer Notes Gnosticist 08 Adventism Alcohol Screening: Question Answer Notes Did you [...] 30 days 17 Dec, 2020 Active Polytrim 98049-6.1 UNIT/ML 1 gtt ou Ophthalmic Four times [...] MG 1 tablet Orally bid Active Nystatin 038037 UNIT/GM 1 application Externally Twice a day as needed for 30 Active Estradiol 0.1 MG/GM 1/2 gram Vaginal use nightly for two weeks, then twice weekly for 90 day(s) Jul, Not-Taking Groove Rolling Walker 1 as directed z74.09 Daily for 90 day(s) May, Active PROCEDURES No Information RESULTS No Results REASON FOR VISIT referral MEDICAL (GENERAL) HISTORY Type Description Date Medical History hyperlipidemia 2B Medical History hypertension, essential Medical History kidney stones Medical History POP Medical History URINARY INCONTINENCE/URGENCY Medical History adenomatous polyp/tubular ad enoma 08/[address] Marroquin Medical History [employer] genetic test n egative for mutation but [...] Name Sig Start Date Stop Date Polytrim 93410-1.1 UNIT/ML 1 gtt ou Ophthalmic Four times a day for 7 day(s) Dec, Culturelle - 1 cap Orally Daily for 30 days 17 Dec, 2020 Cephalexin 250 MG 1 capsule Orally every 6 hrs for 5 day(s) 19 N , 2020 Macrobid 100 MG 1 capsule with food Orally every 12 hrs for 5 day(s) 16 Dec, 2020 Next Appt Details Provider Name:Lizet Hanks, 2021-01-19 11:15:00 AM, [address], , [place], [address], Provider Name:Yvonne Rogers, 2020-02 03:00:00 PM, [address] [facility], , [place], [address], Provider Name:Jing Santiago, 2021-02-03 01:20:00 PM, [address] [facility], , [place], [address], Provider Name:Mile Mckenzie, 2021-01 11:15:00 AM, [address] [facility] [address] [facility], , [place], [address], Insurance Providers Payer Name Payer Address Payer Phone Insured Name Patient Relati onship to Insured Coverage Start Date Coverage End Date [facility] COMM[facility] PLAN [facility] [address] [facility] [address] CELE[employer] POOL self
--- OUTSIDE RECORDS SUMMARY | 2021-01-10 15:54 | CCD | Continuity of Care Document ---
Author Author Natalia WOODY PA-C Organization Unknown Address [address] [place] [address] Phone [phone] Care Team Providers Care Performing Arts Technicians Name Role Phone Rory Bowen ASPHALT DISTRIBUTOR OPERATOR AUTM [phone] Yvonne Rogers ASPHALT DISTRIBUTOR OPERATOR AUTM [phone] Niranjan Dempsey MD AUTM [phone] Problems Description No Information Available Social History [...] Available Procedures Date Code Description Status 12/13/2020 42478 Office/Outpatient Established Mo d MDM 30-39 Min Completed 12/08/2020 00049 Office/Outpatient Established Mo d MDM 30-39 Min Completed 11/09/2020 92827 Office/Outpatient Established Lo w MDM 20-29 Min Completed 11/09/2020 52017 X-Ray Knee Complete W/Obliques & Tunnel And/Or Standing Views Completed 09/21/2020 12617 Office/Outpatient Established Lo w MDM 20-29 Min Completed 09/21/2020 48525 Inject/Drain Joint/Bursa Major C ompleted 07/07/2020 32515 Office/Outpatient Established Mo d MDM 30-39 Min Completed 07/07/2020 13045 Inject/Drain Joint/Bursa Major C ompleted 06/28/202029870 Inject/Drain Joint/Bursa Major C ompleted Medical Devices [...] osteoarthritis, right knee Office Visit 11/09/2020 11:00a [place] Shawna Woody PA-C M1 7.11 Unilateral primary osteoarthritis, right knee Office Visit 09/21/2020 1:45p [place] Shawna Woody PA-C M1 7.11 Unilateral primary [...] 1:15 pm - Shawna Woody PA-C at [place] * 12/23/2020 1:15 pm - Shawna Woody PA-C at [place] 12/13/2020 - Shawna Woody PA-C* M47.817 Spondylosis [...] Shawna Woody PA-C MRI Right Knee per [facility] web a general [facility] approved passed to shana morton to schedule sw. Created [address] [place] [address] [phone] Shawna Woody PA-C PT Right Knee per [facility] auth is approved for eval patient is going to marlene passed to chart sw Created [address] [place] [address] [phone] Shawna Woody PA-C M70.60 TROCHANTERIC BURSITITS UNSPECIFI ED HIP Created [address] [place] [address] [phone] Shawna Woody PA-C OV M70.60 TROCHANTERIC BURSITIS, U NSPECIFIED HIP Created [address] [place] [address] [phone] Shawna Woody PA-C OV - M25.561 RT KNEE Created [address] [facility] [address] [place] [address] [phone] Yannick Randolph PA MRI APPROVED PER [facility] FOR MRI OF RIGHT KNEE (52691) TO SEPIDEH Krishnan DG Created [address] [place] [address] [phone]
--- OUTSIDE RECORDS SUMMARY | 2021-01-10 15:54 | CCD ---
Author Author [facility] Syst ems Organization [facility] ems Address Unknown Phone Unavailable Care Team Providers Care Cashier Assistant Name Role Phone Lizet Hanks Unavailable PROBLEMS Type Condition ICD9-CM Code [id number] Code Onset Dates Condition S tatus W/U Status Risk SNOMED Code Notes Problem Postmenopausal atrophic vaginitis N95.2 Active con firmed 74515355 Problem Mixed stress and urge urinary incontinence N39.46 Active confirmed 783189332 Problem Candidal intertrigo B37.2 Active confirmed 406886137 Problem Atrophic vaginitis N95.2 Active confirmed 5 2671811 Problem Midline cystocele N81.11 Active confirmed 42 6365247 Problem Feeling of incomplete bladder emptying R39.14 A ctive confirmed 844282108 Problem Kidney stone N20.0 Active confirmed 7431845 7 Problem Hyperlipidemia E78.5 Active confirmed 93820 004 Problem Essential (primary) hypertension I10 Active conf irmed 43148590 Problem Personal history of colonic polyps Z86.010 Activ e confirmed 345747053 Problem Congestive heart failure, un specified HF chronicity, unspecified heart failure type I50.9 Active confirmed 25223762 Problem Urge incontinence N39.41 Active confirmed 87 873837 Problem Vaginal atrophy N95.2 Active confirmed 2971 91228 Problem Pelvic organ prolapse quantification stage 1 cystocele N81.10 Active confirmed 068284228 Problem IFG (impaired fasting glucose) R73.01 Active confir med 802065774 Problem Recurrent UTI N39.0 Active confirmed 025798 001 Problem Lumbar spondylosis M47.816 Active confirmed 719069782 Problem Biliary colic K80.50 Active confirmed 737354 05 ALLERGIES Allergen (clinical drug ingredient) Drug/Non Drug Allergy do cumented on EMR Reaction Allergy Type Onset Date Status codeine Codeine Sulfate([facility] Code:[address]-43) Hives Drug Al lergy Active ENCOUNTERS from 1960 to 2020-12-15 Encounter Location Date Provider Diagnosis [facility] [address] [phone] [place] [address] Nov, Lizet Recore Urge incontinence N39.41 IMMUNIZATIONS No Information SOCIAL HISTORY Tobacco Use: Social History Observation Description Date Details (start date - stop date) Never Smoker Sex Assigned At : Social History Observation Description Sex Assigned At Unknown Education: Question Answer Notes Level of Education: Not finished High School 10th grade Language: Question Answer Notes Languages spoken: Macedonian Moravian: Question Answer Notes Moravian 08 Gnosticist Alcohol Screening: Question Answer Notes Did you [...] tablet Orally Once a day Not-Taking Nystatin 395289 UNIT/GM 1 application Externally Twice a day [...] Information RESULTS No Results REASON FOR VISIT rx MEDICAL (GENERAL) HISTORY Type Description Date Medical History hyperlipidemia 2B Medical History hypertension, essential Medical History kidney stones Medical History POP Medical History URINARY INCONTINENCE/URGENCY Medical History adenomatous polyp/tubular ad enoma 08/[address] Marroquin Medical History [employer] genetic test n egative for mutation but [...] Provider Name:Yvonne Rogers, 2020-02 04:00:00 PM, [address] [facility], , [place], [address], Provider Name:Lizet Hanks, 2021-01-19 5 01:30:00 PM, [address] [facility], , [place], [address], Provider Name:Jing Jack, 2021-02-03 01:20:00 PM, [address] [facility], , [place], [address], Insurance Providers Payer Name Payer Address Payer Phone Insured Name Patient Relati onship to Insured Coverage Start Date Coverage End Date [facility] [address] [facility] [address] CELE[employer] POOL self
--- OUTSIDE RECORDS SUMMARY | 2021-01-10 15:54 | CCD ---
Author Author [facility] Syst ems Organization [facility] ems Address Unknown Phone Unavailable Care Team Providers Care Hairspring Fabrication Supervisor Name Role Phone Yvonne Rogers Unavailable PROBLEMS Type Condition ICD9-CM Code [id number] Code Onset Dates Condition S tatus W/U Status Risk SNOMED Code Notes Problem Candidal intertrigo B37.2 Active confirmed 783371436 Problem Postmenopausal atrophic vaginitis N95.2 Active con firmed 20419987 Problem Midline cystocele N81.11 Active confirmed 42 1298623 Problem Mixed stress and urge urinary incontinence N39.46 Active confirmed 405806011 Problem Kidney stone N20.0 Active confirmed 0676332 7 Problem Atrophic vaginitis N95.2 Active confirmed 5 0420802 Problem Pelvic organ prolapse quantification stage 1 cystocele N81.10 Active confirmed 151854916 Problem Feeling of incomplete bladder emptying R39.14 A ctive confirmed 690908153 Problem Essential (primary) hypertension I10 Active conf irmed 26411478 Problem Personal history of colonic polyps Z86.010 Activ e confirmed 899172860 Problem IFG (impaired fasting glucose) R73.01 Active confir med 714824265 Problem Vaginal atrophy N95.2 Active confirmed 2971 07043 Problem Hyperlipidemia E78.5 Active confirmed 59396 004 Problem DJD (degenerative joint disease), lumbosacral M47. 817 Active confirmed 86152154 Problem Urge incontinence N39.41 Active confirmed 87 465228 Problem Recurrent UTI N39.0 Active confirmed 236781 001 Problem Lumbar spondylosis M47.816 Active confirmed 527751324 Problem Biliary colic K80.50 Active confirmed 355671 05 Problem Congestive heart failure, un specified HF chronicity, unspecified heart failure type I50.9 Active confirmed 11974514 ALLERGIES Allergen (clinical drug ingredient) Drug/Non Drug Allergy do cumented on EMR Reaction Allergy Type Onset Date Status codeine Codeine Sulfate([facility] Code:[address]-45) Hives Drug Al lakshmi Active ENCOUNTERS from 1960 to 2020-12-31 Encounter Location Date Provider [facility] [address] [facility] [phone] [place] [address] Dec, Yvonne Rogers IMMUNIZATIONS No Information SOCIAL HISTORY Tobacco Use: Social History Observation Description Date Details (start date - stop date) Never Smoker Sex Assigned At : Social History Observation Description Sex Assigned At Unknown Education: Question Answer Notes Level of Education: Not finished High School 10th grade Language: Question Answer Notes Languages spoken: Citizen Of [place] Hindu: Question Answer Notes Hindu 08 Worship Alcohol Screening: Question Answer Notes [...] tablet Orally Once a day Not-Taking Nystatin 808279 UNIT/GM 1 application Externally Twice a day [...] Information RESULTS No Results REASON FOR VISIT PA request MEDICAL (GENERAL) HISTORY Type Description Date Medical History hyperlipidemia 2B Medical History hypertension, essential Medical History kidney stones Medical History POP Medical History URINARY INCONTINENCE/URGENCY Medical History adenomatous polyp/tubular ad enoma 08/[address] Marroquin Medical History [employer] genetic test n egative for mutation but [...] Provider Name:Lizet Hanks, 2021-01-19 5 01:30:00 PM, [address], , [place], [address], Provider Name:Jing Santiago, 2021-02-03 01:20:00 PM, [address] [facility], , [place], [address], Insurance Providers Payer Name Payer Address Payer Phone Insured Name Patient Relati onship to Insured Coverage Start Date Coverage End Date [facility] COMMUNITY PLAN [facility] [address] [facility] [address] CE[employer] POOL self
--- OUTSIDE RECORDS SUMMARY | 2021-01-10 15:54 | CCD ---
Author Author [facility] Syst ems Organization [facility] Syst ems Address Unknown Phone Unavailable Care Team Providers Care Bindery Supervisor Name Role Phone Stef Osman Unavailable PROBLEMS Type Condition ICD9-CM Code [id number] Code Onset Dates Condition S tatus W/U Status Risk SNOMED Code Notes Problem Candidal intertrigo B37.2 Active confirmed 828483035 Problem Postmenopausal atrophic vaginitis N95.2 Active con firmed 37648935 Problem Midline cystocele N81.11 Active confirmed 42 1294883 Problem Mixed stress and urge urinary incontinence N39.46 Active confirmed 715712408 Problem Kidney stone N20.0 Active confirmed 7269846 7 Problem Atrophic vaginitis N95.2 Active confirmed 5 4423640 Problem Pelvic organ prolapse quantification stage 1 cystocele N81.10 Active confirmed 656981494 Problem Feeling of incomplete bladder emptying R39.14 A ctive confirmed 323395474 Problem Essential (primary) hypertension I10 Active conf irmed 05671718 Problem Personal history of colonic polyps Z86.010 Activ e confirmed 488671633 Problem IFG (impaired fasting glucose) R73.01 Active confir med 973992834 Problem Vaginal atrophy N95.2 Active confirmed 2971 16547 Problem Hyperlipidemia E78.5 Active confirmed 87772 004 Problem DJD (degenerative joint disease), lumbosacral M47. 817 Active confirmed 39295174 Problem Urge incontinence N39.41 Active confirmed 87 305568 Problem Recurrent UTI N39.0 Active confirmed 593436 001 Problem Lumbar spondylosis M47.816 Active confirmed 023850219 Problem Biliary colic K80.50 Active confirmed 682863 05 Problem Congestive heart failure, un specified HF chronicity, unspecified heart failure type I50.9 Active confirmed 05465308 ALLERGIES Allergen (clinical drug ingredient) Drug/Non Drug Allergy do cumented on EMR Reaction Allergy Type Onset Date Status codeine Codeine Sulfate([facility] Code:[address]-68) Hives Drug Al radamesdeion Active ENCOUNTERS from 1960 to 2020-12-30 Encounter Location Date Provider Diagnosis [place] [address] [facility] [phone] [place] [address] Dec, Stef Osman IMMUNIZATIONS No Information SOCIAL HISTORY Tobacco Use: Social History Observation Description Date Details (start date - stop date) Never Smoker Sex Assigned At : Social History Observation Description Sex Assigned At Unknown Education: Question Answer Notes Level of Education: Not finished High School 10th grade Language: Question Answer Notes Languages spoken: [place] Bahai: Question Answer Notes Bahai 08 Restorationist Alcohol Screening: Question Answer Notes [...] tablet Orally Once a day Not-Taking Nystatin 068804 UNIT/GM 1 application Externally Twice a day [...] Information RESULTS No Results REASON FOR VISIT COVID+ MEDICAL (GENERAL) HISTORY Type Description Date Medical History hyperlipidemia 2B Medical History hypertension, essential Medical History kidney stones Medical History POP Medical History URINARY INCONTINENCE/URGENCY Medical History adenomatous polyp/tubular ad enoma 08/[address] Marroquin Medical History [employer] genetic test n egative for mutation but [...] Provider Name:Lizet Hanks, 2021-01-19 5 01:30:00 PM, [address], , [place], [address], Provider Name:Jing Santiago, 2021-02-03 01:20:00 PM, [address] [facility], , [place], [address], Insurance Providers Payer Name Payer Address Payer Phone Insured Name Patient Relati onship to Insured Coverage Start Date Coverage End Date [facility] COMM[facility] [address] [facility] [address] [employer]LE[employer]INO POOL self
--- OUTSIDE RECORDS SUMMARY | 2021-01-10 15:55 | CCD | Continuity of Care Document ---
Author Author Natalia MARROQUIN Organization Unknown Address [address] [place] [address] Phone [phone] Care Team Providers Care Carpenter Mate Name Role Phone Efrem Aden MD AUTM [phone] Kia Rogers AUTM Problems Active Problems Provider Date Screening for malignant neoplasm of colon Artie jenkins M.D. Onset: 06/12/2017 History of polyp of colon Artie Marroquin M.D. Onset: Family history of malignant neoplasm of gastrointestin al tract Artie Marroquin M.D. Onset: 05/07/2012 Diarrhea Artie Marroquin M.D. Onset: 05/07/19 13 Pure hypercholesterolemia Onset: 013 Essential hypertension Onset: 05/07/2012 Social History Type Date Description Comments Sex Unknown ETOH Use Occasionally Tobacco Use Start: Unknown Patient has never smoked Allergies and adverse reactions Description No Known Drug Allergies Medications Active Medications SIG Qnty Indications Ordering Provide r Date Sutab [id number] Tablets as directed 1box Artie Marroquin M.D. 11/09/2020 Furosemide 40mg Tablets daily Rory Bowen,PRESS SHOP SUPERVISOR Simvastatin 20mg Tablets nella y Rory Bowen,PRESS SHOP SUPERVISOR Aspirin DR 81mg Tablets [address] ryder Unknown Celecoxib 100mg Capsules Yannick Randolph Oxybutynin Chloride ER 15mg Tablets ER 24HR Take One Tablet By Mouth Every Day Unknow n Duloxetine HCL 20mg Caps DR Part Take 1 Capsule By Mouth Every Morning For 2 Weeks Then Increase To 2 Capsules Da Unknown Hydrochlorothiazide 12.5mg Tablets Take One Tablet By Mouth Every Day In The Morning Unk nown Tizanidine HCL 4mg Tablets Take One Tablet By Mouth Every Day In The Morning And 1 2 Tablets AT Bedtime Unknown Gabapentin 600mg Tablets Take One Tablet By Mouth Three Times A Day Unknown Losartan Potassium 25mg Tablets Take One Tablet By Mouth Every Day Unknown Immunizations Description No Information Available Vital Signs Date Vital Result Comment 11/09/2020 4:01pm Height 66 inches 5'6" Weight 305.00 lb BP Systolic 130 mmHg BP Diastolic 82 mmHg Heart Rate 90 /min BMI (Body Mass Index) 49.2 kg/m2 Weight 138.348 kg Body Temperature 97.0 F 06/12/2017 11:11am Height 66 inches 5'6" Weight 278.00 lb BP Systolic 138 mmHg BP Diastolic 84 mmHg Heart Rate 79 /min BMI (Body Mass Index) 44.9 kg/m2 Weight 126.101 kg Results Description No Information Available Procedures Date Code Description Status 11/09/2020 69599 Office/Outpatient New Moderate M DM 45-59 Minutes Completed Medical Devices Description No Information Available Encounters Type Date Location Provider Dx Diagnosis Office Visit 11/09/2020 3:30p Main Office Artie Marroquin M.D. Z 80.0 Family history of malignant neoplasm of digestive organs Z86.010 Personal history of colonic polyps K21.9 Gastro-esophageal reflux dis ease without esophagitis Assessments Date Code Description Provider 11/09/2020 Z80.0 Family history of malignant neop lasm of digestive organs Artie Marroquin M.D. 11/09/2020 Z86.010 History of adenomatous polyp of colon Artie Marroquin M.D. 11/09/2020 K21.9 Gastroesophageal reflux disease Artie Marroquin M.D. Plan of Treatment 11/09/2020 - Artie Marroquin M.D.* Z80.0 Family history of malignant neoplasm of digestive organs* Comments:* 60 yo wf who presents for a colonoscopy due to a h/o colonic polyps/egd for heartburn. Last scope was in 2018. No c/o abdominal pain, weight loss, change in bowel habits, or rectal bleeding. Positive family h/o colon cancer- father. No h/o chest pain, or sob. Plan:1. Colonoscopy + egd.2. Informed consent. * Z86.010 History of adenomatous polyp of colon* Comments:* 1.Schedule patient for Colonoscopy. 2. Informed consent given.3. Advised to stop asa, plavix,and anticoagulation 3 to 7 days prior to the procedures. * K21.9 Gastroesophageal reflux disease* Comments:* As above. Functional Status Description No Information Available Mental Status Description No Information Available Referrals Refer to Dr Reason for Referral Status Appt Date Artie Marroquin M.D. Created [address] [place] [address] [phone]
--- OUTSIDE RECORDS SUMMARY | 2021-01-10 15:55 | CCD | Continuity of Care Document ---
Author Author Natalia WOODY PA-C Organization Unknown Address [address] [place] [address] Phone [phone] Care Team Providers Care Machine I Engraver Name Role Phone Rory Bowen ANIMAL SCIENCE PROFESSOR AUTM [phone] Yvonne Rogers ANIMAL SCIENCE PROFESSOR AUTM [phone] Niranjan Dempsey MD AUTM [phone] Problems Description No Information Available Social History Type Date Description Comments Sex Unknown ETOH Use Occasionally consumes alcohol Tobacco Use Start: Unknown Denies Smoking Allergies, Adverse Reactions, Alerts Active Allergies Criticality Reaction | Severity Comments Date Tylenol With Codeine Unable to assess criticality 07/12/2017 Codeine Unable to assess criticality rash | Mild 07/02/2017 Inactive Allergies NKDA Unable to assess criticality 05/31/2017 Medications Active Medications SIG Qnty Indications Ordering Provide r Date Duloxetine HCL 20mg Caps DR Stevan 1 by mouth every morning x2 weeks then increase to 2 caps by mouth daily 60caps M70.62 Craig Witt MD 05/03/2020 Celebrex [...] Ec Low Dose 81mg Tab lets DR Pool Furosemide 40mg Tablets 1 by mouth every [...] Available Procedures Date Code Description Status 11/09/2020 17155 Office/Outpatient Established Lo w MDM 20-29 Min Completed 11/09/2020 90608 X-Ray Knee Complete W/Obliques & Tunnel And/Or Standing Views Completed 09/21/2020 98313 Office/Outpatient Established Lo w MDM 20-29 Min Completed 09/21/202093296 Inject/Drain Joint/Bursa Major C ompleted 07/07/2020 99780 Office/Outpatient Established Mo d MDM 30-39 Min Completed 07/07/202099327 Inject/Drain Joint/Bursa Major C ompleted 06/28/202020283 Inject/Drain Joint/Bursa Major C ompleted 06/09/2020 16981 Office/Outpatient Established Mo d MDM 30-39 Min Completed Medical Devices Description No Information Available Encounters Type Date Location Provider Dx Diagnosis Office Visit 11/09/2020 11:00a Juan Woody PA-C M1 7.11 Unilateral primary osteoarthritis, right knee Office Visit 09/21/2020 1:45p Juan Woody PA-C M1 7.11 Unilateral primary osteoarthritis, right knee Office Visit 07/07/2020 1:00p Juan Woody PA-C M1 7.11 Unilateral primary osteoarthritis, right knee Office Visit 06/28/2020 11:15a [place] Shawna Woody PA-C M7 0.62 Trochanteric bursitis, left hip Office Visit 06/09/2020 1:00p [place] Shawna Woody PA-C S8 0.01xA Contusion of right knee, initial encounter M17.11 Unilateral primary osteoarth ritis, right knee Assessments Date Code Description Provider 11/09/2020 M17.11 Unilateral primary osteoarthriti s, right knee Shawna Woody PA-C 11/09/2020 M17.11 Unilateral primary osteoarthriti s, right knee Shawna Woody PA-C 09/21/2020 M17.11 Unilateral primary osteoarthriti s, right knee Shawna Woody PA-C 07/07/2020 M17.11 Unilateral primary osteoarthriti s, right knee Shawna Woody PA-C 06/28/2020 M70.62 Trochanteric bursitis, left hip Shawna Woody PA-C 06/09/2020 S80.01xA Contusion of right knee, initial encounter Shawna Woody PA-C 06/09/2020 S80.01xA Contusion of right knee, initial encounter Shawna Woody PA-C 06/09/2020 M17.11 Unilateral primary osteoarthriti s, right knee Shawna Woody PA-C 06/09/2020 M17.11 Unilateral primary osteoarthriti s, right knee Shawna Woody PA-C Plan of Treatment Future Appointment(s):* 12/13/2020 1:30 pm - Shawna Woody PA-C at [place] * 12/08/2020 1:15 pm - Shawna Woody PA-C at [place] 11/09/2020 - Shawna Woody PA-C* M17.11 Unilateral primary osteoarthritis, right knee* Follow up:* mri results rt knee with BMS Functional Status Description No Information Available Mental Status Description No Information Available Referrals Refer to Reason for Referral Status Appt Date Shawna Woody PA-C MRI Right Knee per [facility] web a [facility] approved passed to shana morton to schedule sw. Created [facility] [address] [place] [address] [phone] Shawna Woody PA-C Physical Therapy Right Knee per [facility] auth is approved for eval patient is going to lerstephane passed to chart sw Created [address] [facility] [address] [place] [address] [phone] Shawna Woody, GERARD M70.60 TROCHANTERIC BURSITITS UNSPECIFI ED HIP Created [facility] [place] [address] [phone] Shawna Woody PA-C M70.60 TROCHANTERIC BURSITIS, UNSPECIFI ED HIP Created [address] [place] [address] [phone] Yannick Randolph PA MRI APPROVED PER [facility] WEB FOR MRI OF RIGHT KNEE (60759) TO SEPIDEH Ariella DG Created [address] [place] [address] [phone] Niranjan Dempsey MD O/V FOR RT KNEE Created [address] [place] [address] [phone] Yannick Randolph PA O/V FOR BACK Created [address] [place] [address] [phone] Niranjan Dempsey MD O/V FOR BACK Created [address] [place] [address] [phone]
--- OUTSIDE RECORDS SUMMARY | 2021-01-10 15:55 | CCD | Continuity of Care Document ---
Author Author Natalia WOODY PA-C Organization Unknown Address [address] [place] [address] Phone [phone] Care Team Providers Care Php Developer Name Role Phone Rory Bowen CIGAR PACKING EXAMINER AUTM [phone] Yvonne Rogers CIGAR PACKING EXAMINER AUTM [phone] Niranjan Dempsey MD AUTM [phone] Problems Description No Information Available Social History [...] Available Procedures Date Code Description Status 11/09/2020 58944 Office/Outpatient Established Lo w MDM 20-29 Min Completed 11/09/2020 85215 X-Ray Knee Complete W/Obliques & Tunnel And/Or Standing Views Completed 09/21/2020 76756 Office/Outpatient Established Lo w MDM 20-29 Min Completed 09/21/202060365 Inject/Drain Joint/Bursa Major C ompleted 07/07/2020 16599 Office/Outpatient Established Mo d MDM 30-39 Min Completed 07/07/2020 48299 Inject/Drain Joint/Bursa Major C ompleted 06/28/2020 82416 Inject/Drain Joint/Bursa Major C ompleted 06/09/2020 50968 Office/Outpatient Established Mo d MDM 30-39 Min [...] osteoarthritis, right knee Office Visit 06/28/2020 11:15a [place] Shawna Woody PA-C M7 0.62 Trochanteric bursitis, left hip Office Visit 06/09/2020 1:00p [place] Shawna Woody PA-C S8 0.01xA Contusion of right knee, initial encounter M17.11 Unilateral primary osteoarth ritis, right knee Assessments Date Code Description Provider 12/08/2020 M17.11 Unilateral primary osteoarthriti s, right [...] Woody PA-C Plan of Treatment Future Appointment(s):* 12/23/2020 1:15 pm - Shawna Woody PA-C at [place] * 12/13/2020 1:30 pm - Shawna Woody PA-C at [place] 12/08/2020 - Shawna Woody PA-C* M17.11 Unilateral primary osteoarthritis, right knee* New Orders:* Walk-in bath tub wi/ stablizing bars, Ordered: 12/08/20 * Follow up:* in 3 weeks for rt knee recheck with bms Functional Status Description No Information Available Mental Status Description No Information Available Referrals Refer to Reason for Referral Status Appt Date Shawna Woody PA-C MRI Right Knee per [facility] web a [facility] approved passed to shana morton to schedule sw. Created [address] [place] [address] [phone] Shawna Woody PA-C PT Right Knee per [facility] auth is approved for eval patient is going to [place] passed to chart sw Created [address] [place] [address] [phone] Shawna Woody PA-C M70.60 TROCHANTERIC BURSITITS UNSPECIFI ED HIP Created [address] [place] [address] [phone] Shawna Woody PA-C OV M70.60 TROCHANTERIC BURSITIS, U NSPECIFIED HIP Created [address] [place] [address] [phone] Shawna Woody PA-C OV - M25.561 RT KNEE Created [address] [place] [address] [phone] Yannick Randolph PA MRI APPROVED PER [facility] WEB FOR MRI OF RIGHT KNEE (21407) TO SEPIDEH FOLEY Created [address] [place] [address] [phone]
--- OUTSIDE RECORDS SUMMARY | 2021-01-10 15:55 | CCD ---
Continuity of Care Document (CCD) Created on: 11/19/2020 Natalia Ngo External Reference #: [id number] : [id number] Sex: Female Author Author Natalia WOODY PA-C Organization Unknown Address [address] [place] [address] Phone [phone] Care Team Providers Care Tow Operator Name Role Phone Rory Bowen LABEL PRINTER AUTM [phone] Yvonne Rogers LABEL PRINTER AUTM [phone] Niranjan Dempsey MD AUTM [phone] Problems Description No Information Available Social History [...] Available Procedures Date Code Description Status 11/09/2020 53408 Office/Outpatient Established Lo w MDM 20-29 Min Completed 11/09/2020 17147 X-Ray Knee Complete W/Obliques & Tunnel And/Or Standing Views Completed 09/21/2020 13613 Office/Outpatient Established Lo w MDM 20-29 Min Completed 09/21/202019919 Inject/Drain Joint/Bursa Major C ompleted 07/07/2020 62299 Office/Outpatient Established Mo d MDM 30-39 Min Completed 07/07/202078475 Inject/Drain Joint/Bursa Major C ompleted 06/28/202064026 Inject/Drain Joint/Bursa Major C ompleted 06/09/2020 60677 Office/Outpatient Established Mo d MDM 30-39 Min [...] osteoarthritis, right knee Office Visit 06/28/2020 11:15a [place] Shawna Woody PA-C M7 0.62 Trochanteric bursitis, left hip Office Visit 06/09/2020 1:00p [place] Shawna Woody PA-C S8 0.01xA Contusion of [...] 1:30 pm - Shawna Woody PA-C at [place] * 12/08/2020 1:15 pm - Shawna Woody PA-C at [place] 11/09/2020 - Shawna Woody PA-C* M17.11 Unilateral primary osteoarthritis, right knee* Follow up:* mri results rt knee with BMS Functional Status Description No Information Available Mental Status Description No Information Available Referrals Refer to Reason for Referral Status Appt Date Shawna Woody PA-C MRI Right Knee per [facility] web a [facility] approved passed to shana morton to schedule sw. Created [facility] [address] [place] [address] [phone] Shawna Woody PA-C Physical Therapy Right Knee per [facility] auth is approved for eval patient is going to lerstephane passed to chart sw Created [address] [facility] [address] [place] [address] [phone] Shawna Woody, GERARD M70.60 TROCHANTERIC BURSITITS UNSPECIFI ED HIP [place] [address] [phone] Shawna Woody PA-C M70.60 TROCHANTERIC BURSITIS, UNSPECIFI ED HIP Created [address] [place] [address] [phone] Yannick Randolph PA MRI APPROVED PER [facility] WEB FOR MRI OF RIGHT KNEE (15786) TO SEPIDEH Ariella DG Created [address] [place] [address] [phone] Niranjan Dempsey MD O/V FOR RT KNEE Created [address] [place] [address] [phone] Yannick Randolph PA O/V FOR BACK Created [address] [place] [address] [phone] Niranjan Dempsey MD O/V FOR BACK Created [address] [place] [address] [phone]
--- OUTSIDE RECORDS SUMMARY | 2021-01-10 15:55 | CCD | Continuity of Care Document ---
Author Author Natalia RANDOLPH Organization Unknown Address [address] [place] [address] Phone [phone] Care Team Providers Care Assistant Field Hockey Coach Name Role Phone KjdanikaRory EXPORT DOCUMENTS CLERK AUTM [phone] Yvonne Rogers EXPORT DOCUMENTS CLERK AUTM [phone] Niranjan Dempsey MD AUTM [phone] Problems Description No Information Available Social History [...] r Date Duloxetine HCL 20mg Caps DR Calles 1 by mouth every morning x2 weeks [...] Aspirin Ec Low Dose 81mg Tab lets Unknown Furosemide 40mg Tablets 1 by mouth [...] Available Procedures Date Code Description Status 11/09/2020 94398 Office/Outpatient Established Lo w MDM 20-29 Min Completed 11/09/2020 05393 X-Ray Knee Complete W/Obliques & Tunnel And/Or Standing Views Completed 09/21/2020 49619 Office/Outpatient Established Lo w MDM 20-29 Min Completed 09/21/2020 18769 Inject/Drain Joint/Bursa Major C ompleted 07/07/2020 42175 Office/Outpatient Established Mo d MDM 30-39 Min Completed 07/07/2020 31238 Inject/Drain Joint/Bursa Major C ompleted 06/28/202095162 Inject/Drain Joint/Bursa Major C ompleted 06/09/2020 37074 Office/Outpatient Established Mo d MDM 30-39 Min [...] osteoarthritis, right knee Office Visit 06/28/2020 11:15a [place] Shawna Woody PA-C M7 0.62 Trochanteric bursitis, left hip Office Visit 06/09/2020 1:00p [place] Shawna Woody PA-C S8 0.01xA Contusion of [...] 1:15 pm - Shawna Woody PA-C at [place] * 12/13/2020 1:30 pm - Shawna Woody PA-C at [place] * 12/08/2020 1:15 pm - Shawna Woody PA-C at [place] 11/09/2020 - Shawna Woody PA-C* M17.11 Unilateral primary osteoarthritis, right knee* Follow up:* mri results rt knee with BMS Functional Status Description No Information Available Mental Status Description No Information Available Referrals Refer to Dr Reason for Referral Status Appt Date Shawna Woody PA-C MRI Right Knee per [facility] web a [facility] approved passed to shana morton to schedule sw. Created [address] [place] [address] [phone] Shawna Woody PA-C Physical Therapy Right Knee per [facility] auth is approved for eval patient is going to lerstephane passed to chart sw Created [address] [place] [address] [phone] Shawna Woody PA-C M70.60 TROCHANTERIC BURSITITS UNSPECIFI ED HIP Created [address] [place] [address] [phone] Shawna Woody PA-C M70.60 TROCHANTERIC BURSITIS, UNSPECIFI ED HIP Created [address] [place] [address] [phone] Yannick Randolph PA MRI APPROVED PER [facility] WEB FOR MRI OF RIGHT KNEE (18532) TO SEPIDEH Krishnan DG Created [address] [place] [address] [phone] Niranjan Dempsey MD O/V FOR RT KNEE Created [address] [place] [address] [phone] Yannick Randolph PA O/V FOR BACK Created [address] [place] [address] [phone] Niranjan Dempsey MD O/V FOR BACK Created [address] [place] [address] [phone]
--- OUTSIDE RECORDS SUMMARY | 2021-01-10 15:56 | CCD ---
Author Author [facility] Organization [facility] Address Unknown Phone Unavailable Care Team Providers Care Deployment Specialist Name Role Phone Low Marroquin MD Unavailable Unavailable Low Marroquin MD Unavailable Unavailable Low Marroquin MD Unavailable Unavailable Low Marroquin MD Unavailable Unavailable Low Marroquin MD Unavailable Unavailable Low Marroquin MD Unavailable Unavailable Low Marroquin MD Unavailable Unavailable CaraLow rankin MD Unavailable Unavailable Cara, S Artie SORIANO Unavailable Unavailable CaraLow rankin MD Unavailable Unavailable CaraLow rankin MD Unavailable Unavailable CaraLow rankin MD Unavailable Unavailable CaraLow rankin MD Unavailable Unavailable CaraLow rankin MD Unavailable Unavailable CaraLow MD Unavailable Unavailable Cara S Artie SORIANO Unavailable Unavailable CaraLow MD Unavailable Unavailable CaraLow MD Unavailable Unavailable CaraLow MD Unavailable Unavailable Cara S Artie SORIANO Unavailable Unavailable CaraLow rankin MD Unavailable Unavailable CaraLow rankin MD Unavailable Unavailable Low Marroquin MD Unavailable Unavailable Low Marroquin MD Unavailable Unavailable Low Marroquin MD Unavailable Unavailable Low Marroquin MD Unavailable Unavailable Low Marroquin MD Unavailable Unavailable Low Marroquin MD Unavailable Unavailable Low Marroquin MD Unavailable Unavailable Low Marroquin MD Unavailable Unavailable Low Marroquin MD Unavailable Unavailable Low Marroquin MD Unavailable Unavailable Low Marroquin MD Unavailable Unavailable Low Marroquin MD Unavailable Unavailable Low Marroquin MD Unavailable Unavailable Low Marroquin MD Unavailable Unavailable Low Marroquin MD Unavailable Unavailable Low Marroquin MD Unavailable Unavailable Low Marroquin MD Unavailable Unavailable Low Marroquin MD Unavailable Unavailable Low Marroquin MD Unavailable Unavailable Low Marroquin MD Unavailable Unavailable Low Marroquin MD Unavailable Unavailable Low Marroquin MD Unavailable Unavailable Low Marroquin MD Unavailable Unavailable Low Marroquin MD Unavailable Unavailable Low Marroquin MD Unavailable Unavailable Low Marroquin MD Unavailable Unavailable Low Marroquin MD Unavailable Unavailable Cara S Artie SORIANO Unavailable Unavailable Cara S Artie SORIANO Unavailable Unavailable LETTIERE, A NIKHIL PA Unavailable Unavailable LETTIERE, A NIKHIL PA Unavailable Unavailable LETTIERE, A NIKHIL PA Unavailable Unavailable LETTIERE, A NIKHIL PA Unavailable Unavailable LETTIERE, A NIKHIL PA Unavailable Unavailable LETTIERE, A NIKHIL PA Unavailable Unavailable LETTIERE, A NIKHIL PA Unavailable Unavailable LETTIERE, A NIKHIL PA Unavailable Unavailable LETTIERE, A NIKHIL PA Unavailable Unavailable LETTIERE, A NIKHIL PA Unavailable Unavailable LETTIERE, A NIKHIL PA Unavailable Unavailable LETTIERE, A NIKHIL PA Unavailable Unavailable LETTIERE, A NIKHIL PA Unavailable Unavailable LETTIERE, A NIKHIL PA Unavailable Unavailable LETTIERE, A NIKHIL PA Unavailable Unavailable LETTIERE, A NIKHIL PA Unavailable Unavailable LETTIERE, A NIKHIL PA Unavailable Unavailable LETTIERE, A NIKHIL PA Unavailable Unavailable LETTIERE, A NIKHIL PA Unavailable Unavailable LETTIERE, A NIKHIL PA Unavailable Unavailable LETTIERE, A NIKHIL PA Unavailable Unavailable LETTIERE, A NIKHIL PA Unavailable Unavailable LETTIERE, A NIKHIL PA Unavailable Unavailable LETTIERE, A NIKHIL PA Unavailable Unavailable LETTIERE, A NIKHIL PA Unavailable Unavailable LETTIERE, A NIKHIL PA Unavailable Unavailable LETTIERE, A NIKHIL PA Unavailable Unavailable LETTIERE, A NIKHIL PA Unavailable Unavailable LETTIERE, A NIKHIL PA Unavailable Unavailable LETTIERE, A NIKHIL PA Unavailable Unavailable LETTIERE, A NIKHIL PA Unavailable Unavailable Woody, M Barratt PA Unavailable Unavailable Woody, M Barratt PA Unavailable Unavailable Woody, M Barratt PA Unavailable Unavailable Woody, M Barratt PA Unavailable Unavailable Woody, M Barratt PA Unavailable Unavailable Woody, M Barratt PA Unavailable Unavailable Woody, M Barratt PA Unavailable Unavailable Woody, M Barratt PA Unavailable Unavailable Woody, M Barratt PA Unavailable Unavailable Woody, M Barratt PA Unavailable Unavailable Woody, M Barratt PA Unavailable Unavailable Woody, M Barratt PA Unavailable Unavailable Woody, M Barratt PA Unavailable Unavailable Woody, M Barratt PA Unavailable Unavailable Woody, M Barratt PA Unavailable Unavailable Woody, M Barratt PA Unavailable Unavailable Woody, M Barratt PA Unavailable Unavailable Woody, M Barratt PA Unavailable Unavailable Woody, M Barratt PA Unavailable Unavailable Woody, M Barratt PA Unavailable Unavailable Woody, M Barratt PA Unavailable Unavailable Woody, M Barratt PA Unavailable Unavailable Woody, M Barratt PA Unavailable Unavailable Woody, M Barratt PA Unavailable Unavailable Woody, M Barratt PA Unavailable Unavailable Woody, M Barratt PA Unavailable Unavailable Woody, M Barratt PA Unavailable Unavailable Woody, M Barratt PA Unavailable Unavailable Woody, M Barratt PA Unavailable Unavailable RING, K ANDREAS PA Unavailable Unavailable RING, K ANDREAS PA Unavailable Unavailable RING, K ANDREAS PA Unavailable Unavailable RING, K ANDREAS PA Unavailable Unavailable RING, K ANDREAS PA Unavailable Unavailable RING, K ANDREAS PA Unavailable Unavailable RING, K ANDREAS PA Unavailable Unavailable RING, K ANDREAS PA Unavailable Unavailable RING, K ANDREAS PA Unavailable Unavailable RING, K ANDREAS PA Unavailable Unavailable RING, K ANDREAS PA Unavailable Unavailable RING, K ANDREAS PA Unavailable Unavailable RING, K ANDREAS PA Unavailable Unavailable RING, K ANDREAS PA Unavailable Unavailable RING, K ANDREAS PA Unavailable Unavailable RING, K ANDREAS PA Unavailable Unavailable RING, K ANDREAS PA Unavailable Unavailable RING, K ANDREAS PA Unavailable Unavailable RING, K ANDREAS PA Unavailable Unavailable RING, K ANDREAS PA Unavailable Unavailable RING, K ANDREAS PA Unavailable Unavailable STEPHAN, M YANNICK PA Unavailable Unavailable STEPHAN, M YANNICK PA Unavailable Unavailable STEPHAN, M YANNICK PA Unavailable Unavailable STEPHAN, M YANNICK PA Unavailable Unavailable STEPHAN, M YANNICK PA Unavailable Unavailable STEPHAN, M YANNICK PA Unavailable Unavailable STEPHAN, M YANNICK PA Unavailable Unavailable STEPHAN, M YANNICK PA Unavailable Unavailable STEPHAN, M YANNICK PA Unavailable Unavailable STEPHAN, M YANNICK PA Unavailable Unavailable STEPHAN, M YANNICK PA Unavailable Unavailable STEPHAN, M YANNICK PA Unavailable Unavailable STEPHAN, M YANNICK PA Unavailable Unavailable STEPHAN, M YANNICK PA Unavailable Unavailable STEPHAN, M YANNICK PA Unavailable Unavailable STEPHAN, M YANNICK PA Unavailable Unavailable STEPHAN, M YANNICK PA Unavailable Unavailable STEPHAN, M YANNICK PA Unavailable Unavailable STEPHAN, M YANNICK PA Unavailable Unavailable STEPHAN, M YANNICK PA Unavailable Unavailable STEPHAN, M YANNICK PA Unavailable Unavailable STEPHAN, M YANNICK PA Unavailable Unavailable STEPHAN, M YANNICK PA Unavailable Unavailable STEPHAN, M YANNICK PA Unavailable Unavailable Re-disclosure Warning The records that you are about to access may contain information from federally-assisted alcohol or drug abuse programs. If such information is present, then the following federally mandated warning applies: This information has been disclosed to you from records protected by federal confidentiality rules (42 CFR part 2). The federal rules prohibit you from making any further disclosure of this information unless further disclosure is expressly permitted by the written consent of the person to whom it pertains or as otherwise permitted by 42 CFR part 2. A general authorization for the release of medical or other information is NOT sufficient for this purpose. The Federal rules restrict any use of the information to criminally investigate or prosecute any alcohol or drug abuse patient.The records that you are about to access may contain highly sensitive health information, the redisclosure of which is protected by Article 27-F of the [facility] Public Health law. If you continue you may have access to information: Regarding HIV / AIDS; Provided by facilities licensed or operated by the [facility] Office of Mental Health; or Provided by the [facility] Office for People With Developmental Disabilities. If such information is present, then the following [facility] mandated warning applies: This information has been disclosed to you from confidential records which are protected by state law. State law prohibits you from making any further disclosure of this information without the specific written consent of the person to whom it pertains, or as otherwise permitted by law. Any unauthorized further disclosure in violation of state law may result in a fine or intermediate sentence or both. A general authorization for the release of medical or other information is NOT sufficient authorization for further disc losure. Allergies and Adverse Reactions Type Description Substance Reaction Status Data Source(s ) Drug Allergy Drug Allergy NKDA MEDENT ([facility]) Family History Family Member Name Family Member Gender Family Member Status Date o f Status Description Data Source(s) Unknown Male Problem MEDENT ([facility]) Unknown Male Problem MEDENT ([facility] ) Encounters Encounter Providers Location Date Indications Data Source(s ) Unknown [address] [facility] [address] 01/07/2021 12:00:00 AM EST eCW1 ([facility]) [place] [address] [facility] [place] [address] 01/06/2021 12:00:00 AM EST eCW1 ([facility]) Unknown [address] [facility] [place] [address] 01/05/2021 12:00:00 AM EST eCW1 ([facility]) Unknown [address] [facility] [place] [address] 01/05/2021 12:00:00 AM EST eCW1 ([facility]) [place] [address] [facility] [place] [address] 01/05/2021 12:00:00 AM EST eCW1 [facility]) Outpatient [address] [facility] [address] 01/04/2021 12:00:00 AM EST eCW1 ([facility]) Unknown [address] [facility] [address] 01/04/2021 12:00:00 AM EST eCW1 ([facility]) Unknown [address] [facility] [address] 01/03/2021 12:00:00 AM EST eCW1 ([facility]) Unknown [address] [facility] [address] 12/28/2020 12:00:00 AM EST eCW1 ([facility]) Unknown [address] [facility] [address] 12/24/2020 12:00:00 AM EDT eCW1 ([facility]) Unknown [address] [facility] [address] 12/23/2020 12:00:00 AM EDT eCW1 ([facility]) Unknown [address] [facility] [address] 12/14/2020 12:00:00 AM EDT eCW1 [facility] Outpatient Attender: Shawna GREGORIO Physical Therapy 01:30:00 PM EDT MEDENT ([facility]) Unknown [address] [facility] [address] 12/10/2020 12:00:00 AM EDT eCW1 ([facility]) Outpatient Attender: Shawna GREGORIO Physical Therapy 01:15:00 PM EDT MEDENT ([facility]) Outpatient Attender: Artie Marroquin MD Main Office 11/09/2020 03:30:00 PM EDT MEDENT ([facility]) OFFICE OUTPATIENT VISIT 15 MINUTES Attender: Shawna GREGORIO Physical Therapy 11/09/2020 11:00:00 AM EDT MEDENT ([facility]) Unknown [address] [facility] [address] 11/04/2020 12:00:00 AM EDT eCW1 ([facility]) Unknown [address] [facility] [address] 09/22/2020 12:00:00 AM EDT eCW1 [facility]) OFFICE OUTPATIENT VISIT 15 MINUTES Attender: Shawna GREGORIO Physical Therapy 09/21/2020 01:45:00 PM EDT MEDENT ([facility]) Unknown [address] [facility] [address] 08/31/2020 12:00:00 AM EDT [facility]CW1 [facility]) [place] [address] [facility] [address] 08/26/2020 12:00:00 AM EDT [facility]CW1 ([facility]) Unknown [address] [facility] [address] 08/19/2020 12:00:00 AM EDT eCW1 ([facility]) Outpatient Attender: ANDREAS [facility] 08/12/2020 04:40:00 PM EDT MEDENT ([facility]) Outpatient [address] [facility] [address] 08/03/2020 12:00:00 AM EDT eCW1 ([facility]) Outpatient [address] [facility] [place] [address] 08/03/2020 12:00:00 AM EDT eCW1 [facility]) Outpatient Attender: Shawna GREGORIO Physical Therapy 01:00:00 PM EDT MEDENT ([facility]) Office Visit Attender: Shawna GREGORIO Physical Therapy 11:15:00 AM EDT MEDENT ([facility]) Unknown [address] [facility] [address] 06/15/2020 12:00:00 AM EDT eCW1 ([facility]) Unknown [address] [facility] [address] 06/14/2020 12:00:00 AM EDT eCW1 ([facility]) Unknown [address] [facility] [address] 06/10/2020 12:00:00 AM EDT eCW1 ([facility]) Outpatient Attender: Shawna GREGORIO Physical Therapy 01:00:00 PM EDT MEDENT ([facility]) Outpatient [address] [facility] [address] 06/07/2020 12:00:00 AM EDT eCW1 ([facility]) Unknown [address] [facility] [address] 06/07/2020 12:00:00 AM EDT eCW1 ([facility]) Unknown [address] [facility] [address] 06/04/2020 12:00:00 AM EDT eCW1 ([facility]) Unknown [address] [facility] [address] 05/28/2020 12:00:00 AM EDT eCW1 ([facility]) Unknown [address] [facility] [place] [address] 05/24/2020 12:00:00 AM EDT eCW1 ([facility]) Outpatient [address] [facility] [place] [address] 05/24/2020 12:00:00 AM EDT eCW1 ([facility]) Outpatient Attender: YANNICK GREGORIO Physical Therapy 04/19 05:00:00 PM EDT MEDENT ([facility]) Outpatient Attender: NIKHIL finn 04/23/2020 04:35:00 PM EST MEDENT ([facility]) Unknown [address] [facility] [address] 04/22/2020 12:00:00 AM EST eCW1 ([facility]) Unknown [address] [facility] [place] [address] 04/06/2020 12:00:00 AM EST eCW1 ([facility]) Outpatient Attender: YANNICK GREGORIO Physical Therapy 02/19 12:30:00 PM EST MEDENT ([facility]) Unknown [address] [facility] Y [address] 02/26/2020 12:00:00 AM EST eCW1 ([facility]) Unknown [address] [facility] [place] [address] 02/26/2020 12:00:00 AM EST eCW1 ([facility]) Unknown [address] [facility] [place] [address] 02/25/2020 12:00:00 AM EST eCW1 ([facility]) Outpatient [address] [facility] [place] [address] 02/24/2020 12:00:00 AM EST eCW1 ([facility]) Unknown [address] [facility] [place] [address] 02/24/2020 12:00:00 AM EST eCW1 ([facility]) Unknown [address] [facility] [place] [address] 02/24/2020 12:00:00 AM EST eCW1 ([facility]) Unknown [address] [facility] [place] [address] 02/24/2020 12:00:00 AM EST eCW1 ([facility]) Unknown [address] [facility] [place] [address] 01/22/2020 12:00:00 AM EST eCW1 ([facility]) Unknown [address] [facility] Y [address] 01/07/2020 12:00:00 AM EST eCW1 ([facility]) Unknown [address] [facility] Y [address] 12/29/2019 12:00:00 AM EST eCW1 ([facility]) Unknown [address] [facility] [place] [address] 12/26/2019 12:00:00 AM EST eCW1 ([facility]) Outpatient Attender: YANNICK GREGORIO Physical Therapy 06/2019 09:30:00 AM EST MEDENT ([facility]) Outpatient [address] [facility] [place] [address] 12/25/2019 12:00:00 AM EST eCW1 ([facility]) Unknown [address] [facility] [place] [address] 12/17/2019 12:00:00 AM EDT eCW1 ([facility]) OFFICE OUTPATIENT VISIT 15 MINUTES Attender: YANNICK GREGORIO Ph ysical Therapy 11/27/2019 11:00:00 AM EDT MEDENT ([facility]) Unknown [address] [facility] [address] 11/26/2019 12:00:00 AM EDT eCW1 ([facility]) Unknown [address] [facility] [place] [address] 11/26/2019 12:00:00 AM EDT eCW1 ([facility]) Outpatient [address] [facility] [place] [address] 11/24/2019 12:00:00 AM EDT eCW1 ([facility]) Unknown [address] [facility] [place] [address] 11/21/2019 12:00:00 AM EDT eCW1 ([facility]) OFFICE OUTPATIENT VISIT 15 MINUTES Attender: Shawna GREGORIO Physical Therapy 11/14/2019 01:30:00 PM EDT MEDENT ([facility]) Immunizations Vaccine Date Status Description Data Source(s) influenza, recombinant, quadrIvalent,injectable, prese rvative free 01/04/2021 12:17:00 PM EST completed [facility] influenza, recombinant, quadrIvalent,injectable, prese rvative free 01/04/2021 12:17:00 PM EST completed eCW1 ([facility]) influenza, recombinant, quadrIvalent,injectable, prese rvative free 01/04/2021 12:17:00 PM EST completed eCW1 ([facility]) influenza, recombinant, quadrIvalent,injectable, prese rvative free 01/04/2021 12:17:00 PM EST completed eCW1 ([facility]) influenza, recombinant, quadrIvalent,injectable, prese rvative free 01/04/2021 12:17:00 PM EST completed eCW1 ([facility]) influenza, recombinant, quadrIvalent,injectable, prese rvative free 01/04/2021 12:17:00 PM EST completed eCW1 ([facility]) influenza, recombinant, quadrIvalent,injectable, prese rvative free 01/04/2021 12:17:00 PM EST completed eCW1 ([facility]) COVID-19 VACCINE Pfizer 05/19/2020 12:00:00 AM EDT completed [facility] Vaccine Series Complete: YESThis Data wa s Submitted to [facility] Via [employer] COVID-19 VACCINE Pfizer 04/28/2020 12:00:00 AM EST completed [facility] Vaccine Series Complete: NOThis Data was Submitted to [facility] Via [employer] INFLUENZA VIRUS VACCINE QUADRIVALENT 2019- (6 MOS AN D UP) 12/17/2019 12:00:00 AM EDT completed [facility] Medications Medication Brand Name Start Date Product Form Dose Route Admi nistrative Instructions Pharmacy Instructions Status Indications Reaction Description Data Source(s) Cephalexin 250 MG Oral Capsule Cephalexin 250 MG 01/07/2021 12:00:0 0 AM EST 1.0 {capsule} active Cephalexin 250 MG eCW1 ([facility]) 250 mg 01/07/2021 12:00:00 AM EST capsule 20 TAKE ONE CAPSULE BY MOUTH EVERY 6 HOURS FOR 5 DAYS TAKE ONE CAPSULE BY MOUTH EVERY 6 HOURS FOR 5 DAYS EZRA [facility] Cephalexin 250 MG Oral Capsule Cephalexin 250 MG 01/07/2021 12:00:0 0 AM EST 1.0 {capsule} active Cephalexin 250 MG eCW1 ([facility]) Inulin 200 MG / Lactobacillus rhamnosus GG [id number] UNT Oral Capsule Culture[facility] - Culturelle - 01/05/2021 12:00:00 AM EST active Culturelle - eCW1 ([facility]) Inulin 200 MG / Lactobacillus rhamnosus GG [id number] UNT Oral Capsule Culturelle - Culturelle - 01/05/2021 12:00:00 AM EST active Culturelle - eCW1 ([facility]) Inulin 200 MG / Lactobacillus rhamnosus GG [id number] UNT Oral Capsule Culturelle - Culturelle - 01/05/2021 12:00:00 AM EST active Culturelle - eCW1 ([facility]) Inulin 200 MG / Lactobacillus rhamnosus GG [id number] UNT Oral Capsule Culturelle - Culturelle - 01/05/2021 12:00:00 AM EST active Culturelle - eCW1 ([facility]) Inulin 200 MG / Lactobacillus rhamnosus GG [id number] UNT Oral Capsule Culturelle - Culturelle - 01/05/2021 12:00:00 AM EST active Culturelle - eCW1 ([facility]) Inulin 200 MG / Lactobacillus rhamnosus GG [id number] UNT Oral Capsule Culturelle - Culturelle - 01/05/2021 12:00:00 AM EST active Culturelle - eCW1 ([facility]) Polymyxin B 19054 UNT/ML / Trimethoprim 1 MG/ML Ophthalmic Solution [Polytrim] Polytrim 98068-1.1 UNIT/ML Polytrim 05605-1.1 UNIT/ML 01/04/2021 12:00:00 AM EST active Polytrim 67704-7. 1 UNIT/ML eCW1 ([facility]) Polymyxin B 80708 UNT/ML / Trimethoprim 1 MG/ML Ophthalmic Solution [Polytrim] Polytrim 00865-5.1 UNIT/ML Polytrim 70787-8.1 UNIT/ML 01/04/2021 12:00:00 AM EST active Polytrim 20892-1. 1 UNIT/ML eCW1 ([facility]) NITROFURANTOIN, MACROCRYSTALS 25 MG / Ni trofurantoin, Monohydrate 75 MG Oral Capsule [Macrobid] Macrobid 100 MG Macrobid 100 MG 01/04/2021 12:00:00 AM EST 1.0 {capsule_with_food} active Macrobid 100 MG eCW1 ([facility]) NITROFURANTOIN, MACROCRYSTALS 25 MG / Ni trofurantoin, Monohydrate 75 MG Oral Capsule [Macrobid] Macrobid 100 MG Macrobid 100 MG 01/04/2021 12:00:00 AM EST 1.0 {capsule_with_food} active Macrobid 100 MG eCW1 ([facility]) NITROFURANTOIN, MACROCRYSTALS 25 MG / Ni trofurantoin, Monohydrate 75 MG Oral Capsule [Macrobid] Macrobid 100 MG Macrobid 100 MG 01/04/2021 12:00:00 AM EST 1.0 {capsule_with_food} active Macrobid 100 MG eCW1 ([facility]) NITROFURANTOIN, MACROCRYSTALS 25 MG / Ni trofurantoin, Monohydrate 75 MG Oral Capsule 100 mg NITROFURANTOIN MONOHYD/M-CRYST 01/04/2021 12:00:00 AM EST ca psule 10 TAKE 1 CAPSULE BY MOUTH EVERY 12 HOURS WITH FOOD FOR 5 DAYS TAKE 1 CAPSULE BY MOUTH EVERY 12 HOURS WITH FOOD FOR 5 DAYS SOLD: 01/04/2021 [facility] Polymyxin B 07936 UNT/ML / Trimethoprim 1 MG/ML Ophthalmic Solution [Polytrim] Polytrim 17970-8.1 UNIT/ML Polytrim 19726-3.1 UNIT/ML 01/04/2021 12:00:00 AM EST active Polytrim 10247-8. 1 UNIT/ML eCW1 ([facility]) NITROFURANTOIN, MACROCRYSTALS 25 MG / Ni trofurantoin, Monohydrate 75 MG Oral Capsule [Macrobid] Macrobid 100 MG Macrobid 100 MG 01/04/2021 12:00:00 AM EST 1.0 {capsule_with_food} active Macrobid 100 MG eCW1 ([facility]) Polymyxin B 06566 UNT/ML / Trimethoprim 1 MG/ML Ophthalmic Solution [Polytrim] Polytrim 58711-4.1 UNIT/ML Polytrim 43566-1.1 UNIT/ML 01/04/2021 12:00:00 AM EST active Polytrim 96893-4. 1 UNIT/ML eCW1 ([facility]) NITROFURANTOIN, MACROCRYSTALS 25 MG / Ni trofurantoin, Monohydrate 75 MG Oral Capsule [Macrobid] Macrobid 100 MG Macrobid 100 MG 01/04/2021 12:00:00 AM EST 1.0 {capsule_with_food} active Macrobid 100 MG eCW1 ([facility]) Polymyxin B 52055 UNT/ML / Trimethoprim 1 MG/ML Ophthalmic Solution [Polytrim] Polytrim 40473-4.1 UNIT/ML Polytrim 30984-2.1 UNIT/ML 01/04/2021 12:00:00 AM EST active Polytrim 11619-8. 1 UNIT/ML eCW1 ([facility]) NITROFURANTOIN, MACROCRYSTALS 25 MG / Ni trofurantoin, Monohydrate 75 MG Oral Capsule [Macrobid] Macrobid 100 MG Macrobid 100 MG 01/04/2021 12:00:00 AM EST 1.0 {capsule_with_food} active Macrobid 100 MG eCW1 ([facility]) Polymyxin B 18561 UNT/ML / Trimethoprim 1 MG/ML Ophthalmic Solution [Polytrim] Polytrim 48639-8.1 UNIT/ML Polytrim 66541-5.1 UNIT/ML 01/04/2021 12:00:00 AM EST active Polytrim 57602-4. 1 UNIT/ML eCW1 ([facility]) Polymyxin B 80287 UNT/ML / Trimethoprim 1 MG/ML Ophthalmic Solution [Polytrim] Polytrim 13787-6.1 UNIT/ML Polytrim 84661-0.1 UNIT/ML 01/04/2021 12:00:00 AM EST active Polytrim 97625-2. 1 UNIT/ML eCW1 ([facility]) NITROFURANTOIN, MACROCRYSTALS 25 MG / Ni trofurantoin, Monohydrate 75 MG Oral Capsule [Macrobid] Macrobid 100 MG Macrobid 100 MG 01/04/2021 12:00:00 AM EST 1.0 {capsule_with_food} active Macrobid 100 MG eCW1 ([facility]) Polymyxin B 75904 UNT/ML / Trimethoprim 1 MG/ML Ophthalmic Solution 10,000 unit- 1 mg/mL POLYMYXIN B SULF/TRIMETHOPRIM 01/04/2021 12:00:00 AM EST drops 1 0 INSTILL 1 DROP IN EACH EYE FOUR TIMES A DAY FOR 7 DAYS INSTILL 1 DROP IN EACH EYE FOUR TIMES A DAY FOR 7 DAYS SOLD: 01/04/2021 [facility] 15 mg 12/15/2020 12:00:00 AM EDT tablet extended release 24hr 30 TAKE ONE TABLET BY MOUTH EVERY DAY TAKE ONE TABLET BY MOUTH EVERY DAY SOLD: 12/16/2020 [facility] 81 mg 12/03/2020 12:00:00 AM EDT tablet,delayed release (DR/EC) 30 TAKE ONE TABLET BY MOUTH EVERY DAY TAKE ONE TABLET BY MOUTH EVERY DAY SOLD: 12/05/2020 [facility] 20 mg 12/02/2020 12:00:00 AM EDT capsule,delayed release (DR/EC) 60 TAKE ONE CAPSULE BY MOUTH EVERY MORNING FOR 2 WEEKS THEN INCREASE TO 2 CAPSULES DAILY TAKE ONE CAPSULE BY MOUTH EVERY MORNING FOR 2 WEEKS THEN INCREASE TO 2 CAPSULES DAILY SOLD: 12/05/2020 [facility] 5 mg/gram (0.5 %) 11/16/2020 12:00:00 AM EDT ointment 3 APPLY 1/2 CM RIBBON TO AFFECTED EYES SIX TIMES DAILY FOR 7 DAYS APPLY 1/2 CM RIBBON TO AFFECTED EYES SIX TIMES DAILY FOR 7 DAYS SOLD: 11/16/2020 [facility] 600 mg 11/13/2020 12:00:00 AM EDT tablet 90 TAKE ONE TABLET BY MOUTH THREE TIMES A DAY TAKE ONE TABLET BY MOUTH THREE TIMES A DAY SOLD: 11/15/2020 [facility] Sutab Sutab 11/09/2020 12:00:00 AM EDT active MEDENT ([facility]) 600 mg 10/18/2020 12:00:00 AM EDT tablet 90 TAKE ONE TABLET BY MOUTH THREE TIMES A DAY TAKE ONE TABLET BY MOUTH THREE TIMES A DAY SOLD: 10/19/2020 [facility] 5 mg/gram (0.5 %) 10/18/2020 12:00:00 AM EDT ointment 3 APPLY A 1/2CM RIBBON TO AFFECTED EYE(S) SIX TIMES DAILY FOR 7 DAYS APPLY A 1/2CM RIBBON TO AFFECTED EYE(S) SIX TIMES DAILY FOR 7 DAYS SOLD: 10/19/2020 [facility] 100 mg 08/23/2020 12:00:00 AM EDT capsule 60 TAKE ONE CAPSULE BY MOUTH TWICE A DAY TAKE ONE CAPSULE BY MOUTH TWICE A DAY SOLD: 08/23/2020 [facility] 20 mg 08/20/2020 12:00:00 AM EDT tablet 90 TAKE ONE TABLET BY MOUTH IN THE EVENING TAKE ONE TABLET BY MOUTH IN THE EVENING SOLD: 12/13/2020 [facility] 20 mg 08/20/2020 12:00:00 AM EDT tablet 90 TAKE ONE TABLET BY MOUTH IN THE EVENING TAKE ONE TABLET BY MOUTH IN THE EVENING SOLD: 08/23/2020 [facility] 20 mg 08/17/2020 12:00:00 AM EDT capsule,delayed release (DR/EC) 60 TAKE 1 CAPSULE BY MOUTH EVERY MORNING FOR 2 WEEKS THEN INCREASE TO 2 CAPSULES DAILY TAKE 1 CAPSULE BY MOUTH EVERY MORNING FOR 2 WEEKS THEN INCREASE TO 2 CAPSULES DAILY SOLD: 08/19/2020 [facility] 20 mg 08/17/2020 12:00:00 AM EDT capsule,delayed release (DR/EC) 60 TAKE 1 CAPSULE BY MOUTH EVERY MORNING FOR 2 WEEKS THEN INCREASE TO 2 CAPSULES DAILY TAKE 1 CAPSULE BY MOUTH EVERY MORNING FOR 2 WEEKS THEN INCREASE TO 2 CAPSULES DAILY SOLD: 10/11/2020 [facility] 600 mg 08/17/2020 12:00:00 AM EDT tablet 90 TAKE ONE TABLET BY MOUTH THREE TIMES A DAY TAKE ONE TABLET BY MOUTH THREE TIMES A DAY SOLD: 08/19/2020 [facility] Ofloxacin 3 MG/ML Ophthalmic Solution Ofloxacin (Ophthalmic) 08/12/2020 12:00:00 AM EDT OPHTHALMIC active MEDEN T ([facility]) olopatadine 2 MG/ML Ophthalmic Solution [Pataday] Pataday 08/12/2020 12:00:00 AM EDT active MEDENT ([facility]) Estradiol 0.1 MG/ML Vaginal Cream Estradiol 0.1 MG/GM Estrad iol 0.1 MG/GM 08/03/2020 12:00:00 AM EDT active Estradiol 0.1 MG/GM eCW1 ([facility]) Estradiol 0.1 MG/ML Vaginal Cream Estradiol 0.1 MG/GM Estrad iol 0.1 MG/GM 08/03/2020 12:00:00 AM EDT active Estradiol 0.1 MG/GM eCW1 ([facility]) Estradiol 0.1 MG/ML Vaginal Cream Estradiol 0.1 MG/GM Estrad iol 0.1 MG/GM 08/03/2020 12:00:00 AM EDT suspended Estradiol 0.1 MG/GM eCW1 ([facility]) Estradiol 0.1 MG/ML Vaginal Cream Estradiol 0.1 MG/GM Estrad iol 0.1 MG/GM 08/03/2020 12:00:00 AM EDT suspended Estradiol 0.1 MG/GM eCW1 ([facility]) Estradiol 0.1 MG/ML Vaginal Cream Estradiol 0.1 MG/GM Estrad iol 0.1 MG/GM 08/03/2020 12:00:00 AM EDT active Estradiol 0.1 MG/GM eCW1 ([facility]) Estradiol 0.1 MG/ML Vaginal Cream Estradiol 0.1 MG/GM Estrad iol 0.1 MG/GM 08/03/2020 12:00:00 AM EDT suspended Estradiol 0.1 MG/GM eCW1 ([facility]) Estradiol 0.1 MG/ML Vaginal Cream Estradiol 0.1 MG/GM Estrad iol 0.1 MG/GM 08/03/2020 12:00:00 AM EDT active eCW1 ([facility]) Estradiol 0.1 MG/ML Vaginal Cream Estradiol 0.1 MG/GM Estrad iol 0.1 MG/GM 08/03/2020 12:00:00 AM EDT suspended Estradiol 0.1 MG/GM eCW1 ([facility]) Estradiol 0.1 MG/ML Vaginal Cream Estradiol 0.1 MG/GM Estrad iol 0.1 MG/GM 08/03/2020 12:00:00 AM EDT active eCW1 ([facility]) Estradiol 0.1 MG/ML Vaginal Cream Estradiol 0.1 MG/GM Estrad iol 0.1 MG/GM 08/03/2020 12:00:00 AM EDT active Estradiol 0.1 MG/GM eCW1 ([facility]) 0.01 % (0.1 mg/gram) 08/03/2020 12:00:00 AM EDT cream 42 INSERT 1/2 GRAM VAGINALLY ONCE NIGHTLY FOR 2 WEEKS THEN TWICE A WEEK INSERT 1/2 GRAM VAGINALLY ONCE NIGHTLY FOR 2 WEEKS THEN TWICE A WEEK SOLD: 08/05/2020 [facility] Estradiol 0.1 MG/ML Vaginal Cream Estradiol 0.1 MG/GM Estrad iol 0.1 MG/GM 08/03/2020 12:00:00 AM EDT active Estradiol 0.1 MG/GM eCW1 ([facility]) Estradiol 0.1 MG/ML Vaginal Cream Estradiol 0.1 MG/GM Estrad iol 0.1 MG/GM 08/03/2020 12:00:00 AM EDT suspended Estradiol 0.1 MG/GM eCW1 ([facility]) Estradiol 0.1 MG/ML Vaginal Cream Estradiol 0.1 MG/GM Estrad iol 0.1 MG/GM 08/03/2020 12:00:00 AM EDT active Estradiol 0.1 MG/GM eCW1 ([facility]) Estradiol 0.1 MG/ML Vaginal Cream Estradiol 0.1 MG/GM Estrad iol 0.1 MG/GM 08/03/2020 12:00:00 AM EDT active Estradiol 0.1 MG/GM eCW1 ([facility]) Estradiol 0.1 MG/ML Vaginal Cream Estradiol 0.1 MG/GM Estrad iol 0.1 MG/GM 08/03/2020 12:00:00 AM EDT suspended Estradiol 0.1 MG/GM eCW1 ([facility]) Estradiol 0.1 MG/ML Vaginal Cream Estradiol 0.1 MG/GM Estrad iol 0.1 MG/GM 08/03/2020 12:00:00 AM EDT active Estradiol 0.1 MG/GM eCW1 ([facility]) Estradiol 0.1 MG/ML Vaginal Cream Estradiol 0.1 MG/GM Estrad iol 0.1 MG/GM 08/03/2020 12:00:00 AM EDT suspended Estradiol 0.1 MG/GM eCW1 ([facility]) Estradiol 0.1 MG/ML Vaginal Cream Estradiol 0.1 MG/GM Estrad iol 0.1 MG/GM 08/03/2020 12:00:00 AM EDT active Estradiol 0.1 MG/GM eCW1 ([facility]) Estradiol 0.1 MG/ML Vaginal Cream Estradiol 0.1 MG/GM Estrad iol 0.1 MG/GM 08/03/2020 12:00:00 AM EDT active Estradiol 0.1 MG/GM eCW1 ([facility]) Estradiol 0.1 MG/ML Vaginal Cream Estradiol 0.1 MG/GM Estrad iol 0.1 MG/GM 08/03/2020 12:00:00 AM EDT active Estradiol 0.1 MG/GM eCW1 ([facility]) 100,000 unit/gram 07/29/2020 12:00:00 AM EDT cream 60 APPLY TO AFFECTED AREA(S) TWO TIMES A DAY NEEDED APPLY TO AFFECTED AREA(S) TWO TIMES A DA Y NEEDED SOLD: 07/30/2020 [facility] 2 mg 06/16/2020 12:00:00 AM EDT tablet 60 TAKE ONE TABLET BY MOUTH TWICE A DAY TAKE ONE TABLET BY MOUTH TWICE A DAY SOLD: 06/17/2020 [facility] 2 mg 06/16/2020 12:00:00 AM EDT tablet 60 TAKE ONE TABLET BY MOUTH TWICE A DAY TAKE ONE TABLET BY MOUTH TWICE A DAY SOLD: 07/30/2020 [facility] tolterodine tartrate 2 MG Oral Tablet Tolterodine Tart rate 2 MG Tolterodine Tartrate 2 MG 06/15/2020 12:00:00 AM EDT 1.0 {tablet} active Tolterodine Tartrate 2 MG eCW1 ([facility]) tolterodine tartrate 2 MG Oral Tablet Tolterodine Tart rate 2 MG Tolterodine Tartrate 2 MG 06/15/2020 12:00:00 AM EDT 1.0 {tablet} active Tolterodine Tartrate 2 MG eCW1 ([facility]) tolterodine tartrate 2 MG Oral Tablet Tolterodine Tart rate 2 MG Tolterodine Tartrate 2 MG 06/15/2020 12:00:00 AM EDT 1.0 {tablet} active Tolterodine Tartrate 2 MG eCW1 ([facility]) tolterodine tartrate 2 MG Oral Tablet Tolterodine Tart rate 2 MG Tolterodine Tartrate 2 MG 06/15/2020 12:00:00 AM EDT 1.0 {tablet} active Tolterodine Tartrate 2 MG eCW1 ([facility]) tolterodine tartrate 2 MG Oral Tablet Tolterodine Tart rate 2 MG Tolterodine Tartrate 2 MG 06/15/2020 12:00:00 AM EDT 1.0 {tablet} active Tolterodine Tartrate 2 MG eCW1 ([facility]) tolterodine tartrate 2 MG Oral Tablet Tolterodine Tart rate 2 MG Tolterodine Tartrate 2 MG 06/15/2020 12:00:00 AM EDT 1.0 {tablet} suspended Tolterodine Tartrate 2 MG eCW1 ([facility]) tolterodine tartrate 2 MG Oral Tablet Tolterodine Tart rate 2 MG Tolterodine Tartrate 2 MG 06/15/2020 12:00:00 AM EDT 1.0 {tablet} ac tive eCW1 ([facility]) tolterodine tartrate 2 MG Oral Tablet Tolterodine Tart rate 2 MG Tolterodine Tartrate 2 MG 06/15/2020 12:00:00 AM EDT 1.0 {tablet} active Tolterodine Tartrate 2 MG eCW1 ([facility]) tolterodine tartrate 2 MG Oral Tablet Tolterodine Tart rate 2 MG Tolterodine Tartrate 2 MG 06/15/2020 12:00:00 AM EDT 1.0 {tablet} active Tolterodine Tartrate 2 MG eCW1 ([facility]) tolterodine tartrate 2 MG Oral Tablet Tolterodine Tart rate 2 MG Tolterodine Tartrate 2 MG 06/15/2020 12:00:00 AM EDT 1.0 {tablet} suspended Tolterodine Tartrate 2 MG eCW1 ([facility]) tolterodine tartrate 2 MG Oral Tablet Tolterodine Tart rate 2 MG Tolterodine Tartrate 2 MG 06/15/2020 12:00:00 AM EDT 1.0 {tablet} active Tolterodine Tartrate 2 MG eCW1 ([facility]) tolterodine tartrate 2 MG Oral Tablet Tolterodine Tart rate 2 MG Tolterodine Tartrate 2 MG 06/15/2020 12:00:00 AM EDT 1.0 {tablet} active Tolterodine Tartrate 2 MG eCW1 ([facility]) tolterodine tartrate 2 MG Oral Tablet Tolterodine Tart rate 2 MG Tolterodine Tartrate 2 MG 06/15/2020 12:00:00 AM EDT 1.0 {tablet} suspended Tolterodine Tartrate 2 MG eCW1 ([facility]) tolterodine tartrate 2 MG Oral Tablet Tolterodine Tart rate 2 MG Tolterodine Tartrate 2 MG 06/15/2020 12:00:00 AM EDT 1.0 {tablet} ac tive eCW1 ([facility]) tolterodine tartrate 2 MG Oral Tablet Tolterodine Tart rate 2 MG Tolterodine Tartrate 2 MG 06/15/2020 12:00:00 AM EDT 1.0 {tablet} active Tolterodine Tartrate 2 MG eCW1 ([facility]) tolterodine tartrate 2 MG Oral Tablet Tolterodine Tart rate 2 MG Tolterodine Tartrate 2 MG 06/15/2020 12:00:00 AM EDT 1.0 {tablet} active Tolterodine Tartrate 2 MG eCW1 ([facility]) tolterodine tartrate 2 MG Oral Tablet Tolterodine Tart rate 2 MG Tolterodine Tartrate 2 MG 06/15/2020 12:00:00 AM EDT 1.0 {tablet} active Tolterodine Tartrate 2 MG eCW1 ([facility]) tolterodine tartrate 2 MG Oral Tablet Tolterodine Tart rate 2 MG Tolterodine Tartrate 2 MG 06/15/2020 12:00:00 AM EDT 1.0 {tablet} active Tolterodine Tartrate 2 MG eCW1 ([facility]) tolterodine tartrate 2 MG Oral Tablet Tolterodine Tart rate 2 MG Tolterodine Tartrate 2 MG 06/15/2020 12:00:00 AM EDT 1.0 {tablet} suspended Tolterodine Tartrate 2 MG eCW1 ([facility]) tolterodine tartrate 2 MG Oral Tablet Tolterodine Tart rate 2 MG Tolterodine Tartrate 2 MG 06/15/2020 12:00:00 AM EDT 1.0 {tablet} suspended Tolterodine Tartrate 2 MG eCW1 ([facility]) tolterodine tartrate 2 MG Oral Tablet Tolterodine Tart rate 2 MG Tolterodine Tartrate 2 MG 06/15/2020 12:00:00 AM EDT 1.0 {tablet} suspended Tolterodine Tartrate 2 MG eCW1 ([facility]) tolterodine tartrate 2 MG Oral Tablet Tolterodine Tart rate 2 MG Tolterodine Tartrate 2 MG 06/15/2020 12:00:00 AM EDT 1.0 {tablet} suspended Tolterodine Tartrate 2 MG eCW1 ([facility]) 24 HR trospium chloride 60 MG Extended R elease Oral Capsule Trospium Chloride ER 60 MG Trospium Chloride ER 60 MG 06/11/2020 12:00:00 AM EDT suspended Trospium Chloride ER 60 MG eCW1 ([facility]) 24 HR trospium chloride 60 MG Extended R elease Oral Capsule Trospium Chloride ER 60 MG Trospium Chloride ER 60 MG 06/11/2020 12:00:00 AM EDT active Trospium Chloride ER 60 MG eCW1 ([facility]) 24 HR trospium chloride 60 MG Extended R elease Oral Capsule Trospium Chloride ER 60 MG Trospium Chloride ER 60 MG 06/11/2020 12:00:00 AM EDT suspended Trospium Chloride ER 60 MG eCW1 ([facility]) 24 HR trospium chloride 60 MG Extended R elease Oral Capsule Trospium Chloride ER 60 MG Trospium Chloride ER 60 MG 06/11/2020 12:00:00 AM EDT suspended Trospium Chloride ER 60 MG eCW1 ([facility]) 24 HR trospium chloride 60 MG Extended R elease Oral Capsule Trospium Chloride ER 60 MG Trospium Chloride ER 60 MG 06/11/2020 12:00:00 AM EDT suspended Trospium Chloride ER 60 MG eCW1 ([facility]) 24 HR trospium chloride 60 MG Extended R elease Oral Capsule Trospium Chloride ER 60 MG Trospium Chloride ER 60 MG 06/11/2020 12:00:00 AM EDT suspended Trospium Chloride ER 60 MG eCW1 ([facility]) 24 HR trospium chloride 60 MG Extended R elease Oral Capsule Trospium Chloride ER 60 MG Trospium Chloride ER 60 MG 06/11/2020 12:00:00 AM EDT suspended Trospium Chloride ER 60 MG eCW1 ([facility]) 24 HR trospium chloride 60 MG Extended R elease Oral Capsule Trospium Chloride ER 60 MG Trospium Chloride ER 60 MG 06/11/2020 12:00:00 AM EDT suspended Trospium Chloride ER 60 MG eCW1 ([facility]) 24 HR trospium chloride 60 MG Extended R elease Oral Capsule Trospium Chloride ER 60 MG Trospium Chloride ER 60 MG 06/11/2020 12:00:00 AM EDT suspended Trospium Chloride ER 60 MG eCW1 ([facility]) 24 HR trospium chloride 60 MG Extended R elease Oral Capsule Trospium Chloride ER 60 MG Trospium Chloride ER 60 MG 06/11/2020 12:00:00 AM EDT suspended eCW1 ([facility]) 24 HR trospium chloride 60 MG Extended R elease Oral Capsule Trospium Chloride ER 60 MG Trospium Chloride ER 60 MG 06/11/2020 12:00:00 AM EDT suspended eCW1 ([facility]) 24 HR trospium chloride 60 MG Extended R elease Oral Capsule Trospium Chloride ER 60 MG Trospium Chloride ER 60 MG 06/11/2020 12:00:00 AM EDT active Trospium Chloride ER 60 MG eCW1 ([facility]) 24 HR trospium chloride 60 MG Extended R elease Oral Capsule Trospium Chloride ER 60 MG Trospium Chloride ER 60 MG 06/11/2020 12:00:00 AM EDT suspended Trospium Chloride ER 60 MG eCW1 ([facility]) 24 HR trospium chloride 60 MG Extended R elease Oral Capsule Trospium Chloride ER 60 MG Trospium Chloride ER 60 MG 06/11/2020 12:00:00 AM EDT suspended Trospium Chloride ER 60 MG eCW1 ([facility]) 24 HR trospium chloride 60 MG Extended R elease Oral Capsule Trospium Chloride ER 60 MG Trospium Chloride ER 60 MG 06/11/2020 12:00:00 AM EDT suspended Trospium Chloride ER 60 MG eCW1 ([facility]) 24 HR trospium chloride 60 MG Extended R elease Oral Capsule Trospium Chloride ER 60 MG Trospium Chloride ER 60 MG 06/11/2020 12:00:00 AM EDT suspended Trospium Chloride ER 60 MG eCW1 ([facility]) 24 HR trospium chloride 60 MG Extended R elease Oral Capsule Trospium Chloride ER 60 MG Trospium Chloride ER 60 MG 06/11/2020 12:00:00 AM EDT suspended Trospium Chloride ER 60 MG eCW1 ([facility]) 24 HR trospium chloride 60 MG Extended R elease Oral Capsule Trospium Chloride ER 60 MG Trospium Chloride ER 60 MG 06/11/2020 12:00:00 AM EDT suspended Trospium Chloride ER 60 MG eCW1 ([facility]) 24 HR trospium chloride 60 MG Extended R elease Oral Capsule Trospium Chloride ER 60 MG Trospium Chloride ER 60 MG 06/11/2020 12:00:00 AM EDT suspended Trospium Chloride ER 60 MG eCW1 ([facility]) 24 HR trospium chloride 60 MG Extended R elease Oral Capsule Trospium Chloride ER 60 MG Trospium Chloride ER 60 MG 06/11/2020 12:00:00 AM EDT suspended Trospium Chloride ER 60 MG eCW1 ([facility]) 24 HR trospium chloride 60 MG Extended R elease Oral Capsule Trospium Chloride ER 60 MG Trospium Chloride ER 60 MG 06/11/2020 12:00:00 AM EDT suspended Trospium Chloride ER 60 MG eCW1 ([facility]) 24 HR trospium chloride 60 MG Extended R elease Oral Capsule Trospium Chloride ER 60 MG Trospium Chloride ER 60 MG 06/11/2020 12:00:00 AM EDT suspended Trospium Chloride ER 60 MG eCW1 ([facility]) 24 HR trospium chloride 60 MG Extended R elease Oral Capsule Trospium Chloride ER 60 MG Trospium Chloride ER 60 MG 06/11/2020 12:00:00 AM EDT active Trospium Chloride ER 60 MG eCW1 ([facility]) 24 HR trospium chloride 60 MG Extended R elease Oral Capsule Trospium Chloride ER 60 MG Trospium Chloride ER 60 MG 06/11/2020 12:00:00 AM EDT active Trospium Chloride ER 60 MG eCW1 ([facility]) Classics Rolling Walker 1 UNK 06/07/2020 12:00:00 AM EDT active Classics Rolling Walker 1 eCW1 ([facility]) Groove Rolling Walker 1 UNK 06/07/2020 12:00:00 AM EDT active Groove Rolling Walker 1 eCW1 ([facility]) Groove Rolling Walker 1 UN 06/07/2020 12:00:00 AM EDT active Groove Rolling Walker 1 eCW1 ([facility]) Classics Rolling Walker 1 UNK 06/07/2020 12:00:00 AM EDT active Classics Rolling Walker 1 eCW1 ([facility]) Classics Rolling Walker 1 UNK 06/07/2020 12:00:00 AM EDT active Classics Rolling Walker 1 eCW1 ([facility]) Groove Rolling Walker 1 UNK 06/07/2020 12:00:00 AM EDT active Groove Rolling Walker 1 eCW1 ([facility]) Classics Rolling Walker 1 UNK 06/07/2020 12:00:00 AM EDT active Classics Rolling Walker 1 eCW1 ([facility]) Classics Rolling Walker 1 UNK 06/07/2020 12:00:00 AM EDT active Classics Rolling Walker 1 eCW1 ([facility]) Classics Rolling Walker 1 UNK 06/07/2020 12:00:00 AM EDT active Classics Rolling Walker 1 eCW1 ([facility]) Classics Rolling Walker 1 UNK 06/07/2020 12:00:00 AM EDT active Classics Rolling Walker 1 eCW1 ([facility]) Groove Rolling Walker 1 UNK 06/07/2020 12:00:00 AM EDT active Groove Rolling Walker 1 eCW1 ([facility]) Classics Rolling Walker 1 UNK 06/07/2020 12:00:00 AM EDT active Classics Rolling Walker 1 eCW1 ([facility]) Classics Rolling Walker 1 UNK 06/07/2020 12:00:00 AM EDT active eCW1 ([facility]) Groove Rolling Walker 1 UNK 06/07/2020 12:00:00 AM EDT active Groove Rolling Walker 1 eCW1 ([facility]) Groove Rolling Walker 1 UNK 06/07/2020 12:00:00 AM EDT active Groove Rolling Walker 1 eCW1 ([facility]) Classics Rolling Walker 1 UNK 06/07/2020 12:00:00 AM EDT active Classics Rolling Walker 1 eCW1 ([facility]) Classics Rolling Walker 1 UNK 06/07/2020 12:00:00 AM EDT active eCW1 ([facility]) Classics Rolling Walker 1 UNK 06/07/2020 12:00:00 AM EDT active Classics Rolling Walker 1 eCW1 ([facility]) Groove Rolling Walker 1 UNK 06/07/2020 12:00:00 AM EDT active Groove Rolling Walker 1 eCW1 ([facility]) Classics Rolling Walker 1 UNK 06/07/2020 12:00:00 AM EDT active Classics Rolling Walker 1 eCW1 ([facility]) Groove Rolling Walker 1 UNK 06/07/2020 12:00:00 AM EDT active Groove Rolling Walker 1 eCW1 ([facility]) Groove Rolling Walker 1 UNK 06/07/2020 12:00:00 AM EDT active Groove Rolling Walker 1 eCW1 ([facility]) Classics Rolling Walker 1 UNK 06/07/2020 12:00:00 AM EDT active Classics Rolling Walker 1 eCW1 ([facility]) Classics Rolling Walker 1 UNK 06/07/2020 12:00:00 AM EDT active Classics Rolling Walker 1 eCW1 ([facility]) Classics Rolling Walker 1 UNK 06/07/2020 12:00:00 AM EDT active Classics Rolling Walker 1 eCW1 ([facility]) Groove Rolling Walker 1 UNK 06/07/2020 12:00:00 AM EDT active Groove Rolling Walker 1 eCW1 ([facility]) Classics Rolling Walker 1 UNK 06/07/2020 12:00:00 AM EDT active Classics Rolling Walker 1 eCW1 ([facility]) Classics Rolling Walker 1 UNK 06/07/2020 12:00:00 AM EDT active Classics Rolling Walker 1 eCW1 ([facility]) Groove Rolling Walker 1 UNK 06/07/2020 12:00:00 AM EDT active Groove Rolling Walker 1 eCW1 ([facility]) Classics Rolling Walker 1 UNK 06/07/2020 12:00:00 AM EDT active Classics Rolling Walker 1 eCW1 ([facility]) Groove Rolling Walker 1 UNK 06/07/2020 12:00:00 AM EDT active Groove Rolling Walker 1 eCW1 ([facility]) Classics Rolling Walker 1 UNK 06/07/2020 12:00:00 AM EDT active Classics Rolling Walker 1 eCW1 ([facility]) Groove Rolling Walker 1 UNK 06/07/2020 12:00:00 AM EDT active Groove Rolling Walker 1 eCW1 ([facility]) Classics Rolling Walker 1 UNK 06/07/2020 12:00:00 AM EDT active Classics Rolling Walker 1 eCW1 ([facility]) Groove Rolling Walker 1 UNK 06/07/2020 12:00:00 AM EDT active Groove Rolling Walker 1 eCW1 ([facility]) Groove Rolling Walker 1 UNK 06/07/2020 12:00:00 AM EDT active Groove Rolling Walker 1 eCW1 ([facility]) Groove Rolling Walker 1 UNK 06/07/2020 12:00:00 AM EDT active eCW1 ([facility]) Classics Rolling Walker 1 UNK 06/07/2020 12:00:00 AM EDT active Classics Rolling Walker 1 eCW1 ([facility]) Classics Rolling Walker 1 UNK 06/07/2020 12:00:00 AM EDT active Classics Rolling Walker 1 eCW1 ([facility]) Classics Rolling Walker 1 UNK 06/07/2020 12:00:00 AM EDT active Classics Rolling Walker 1 eCW1 ([facility]) Groove Rolling Walker 1 UNK 06/07/2020 12:00:00 AM EDT active Groove Rolling Walker 1 eCW1 ([facility]) Groove Rolling Walker 1 UNK 06/07/2020 12:00:00 AM EDT active Groove Rolling Walker 1 eCW1 ([facility]) Groove Rolling Walker 1 UNK 06/07/2020 12:00:00 AM EDT active eCW1 ([facility]) Groove Rolling Walker 1 UNK 06/07/2020 12:00:00 AM EDT active Groove Rolling Walker 1 eCW1 ([facility]) Classics Rolling Walker 1 UNK 06/07/2020 12:00:00 AM EDT active Classics Rolling Walker 1 eCW1 ([facility]) Groove Rolling Walker 1 UNK 06/07/2020 12:00:00 AM EDT active Groove Rolling Walker 1 eCW1 ([facility]) Groove Rolling Walker 1 UNK 06/07/2020 12:00:00 AM EDT active Groove Rolling Walker 1 eCW1 ([facility]) Groove Rolling Walker 1 UNK 06/07/2020 12:00:00 AM EDT active Groove Rolling Walker 1 eCW1 ([facility]) Classics Rolling Walker 1 UNK 06/07/2020 12:00:00 AM EDT active Classics Rolling Walker 1 eCW1 ([facility]) Classics Rolling Walker 1 UNK 06/07/2020 12:00:00 AM EDT active Classics Rolling Walker 1 eCW1 ([facility]) Groove Rolling Walker 1 UNK 06/07/2020 12:00:00 AM EDT active Groove Rolling Walker 1 eCW1 ([facility]) Groove Rolling Walker 1 UNK 06/07/2020 12:00:00 AM EDT active Groove Rolling Walker 1 eCW1 ([facility]) Groove Rolling Walker 1 UNK 06/07/2020 12:00:00 AM EDT active Groove Rolling Walker 1 eCW1 ([facility]) Groove Rolling Walker 1 UNK 06/07/2020 12:00:00 AM EDT active Groove Rolling Walker 1 eCW1 ([facility]) 5 mg/gram (0.5 %) 05/15/2020 12:00:00 AM EDT ointment 3 APPLY A THIN LAYER INTO THE RIGHT EYE TWO TIMES A DAY DIRECTED APPLY A THIN LAYER INTO THE RIGHT EYE TWO TIMES A DAY DIRECTED SOLD: 05/15/2020 [facility] 1 % 05/06/2020 12:00:00 AM EDT drops,suspension 5 INSTILL 1 DROP IN EACH EYE FOUR TIMES A DAY INSTILL 1 DROP IN EACH EYE FOUR TIMES A DAY SOLD: 05/07/2020 [facility] 5 mg/gram (0.5 %) 05/06/2020 12:00:00 AM EDT ointment 3 APPLY SMALL AMOUNT INTO EACH EYE AT BEDTIME DIRECTED APPLY SMALL AMOUNT INTO EACH EYE AT BEDT GRACIE DIRECTED SOLD: 05/07/2020 [facility] 100 mg 05/05/2020 12:00:00 AM EDT capsule 60 TAKE ONE CAPSULE BY MOUTH TWICE A DAY WITH FOOD TAKE ONE CAPSULE BY MOUTH TWICE A DAY WITH FOOD SOLD: 10/11/2020 [facility] 100 mg 05/05/2020 12:00:00 AM EDT capsule 60 TAKE ONE CAPSULE BY MOUTH TWICE A DAY WITH FOOD TAKE ONE CAPSULE BY MOUTH TWICE A DAY WITH FOOD SOLD: 07/30/2020 [facility] 100 mg 05/05/2020 12:00:00 AM EDT capsule 60 TAKE ONE CAPSULE BY MOUTH TWICE A DAY WITH FOOD TAKE ONE CAPSULE BY MOUTH TWICE A DAY WITH FOOD SOLD: 12/05/2020 [facility] 100 mg 05/05/2020 12:00:00 AM EDT capsule 60 TAKE ONE CAPSULE BY MOUTH TWICE A DAY WITH FOOD TAKE ONE CAPSULE BY MOUTH TWICE A DAY WITH FOOD SOLD: 05/05/2020 [facility] 100 mg 05/05/2020 12:00:00 AM EDT capsule 60 TAKE ONE CAPSULE BY MOUTH TWICE A DAY WITH FOOD TAKE ONE CAPSULE BY MOUTH TWICE A DAY WITH FOOD SOLD: 06/07/2020 [facility] 20 mg 05/04/2020 12:00:00 AM EDT capsule,delayed release (DR/EC) 60 TAKE ONE CAPSULE BY MOUTH EVERY MORNING FOR 2 WEEKS THEN TAKE TWO CAPSULES DAILY TAKE ONE CAPSULE BY MOUTH EVERY MORNING FOR 2 WEEKS THEN TAKE TWO CAPSULES DAILY SOLD: 06/07/2020 [facility] 600 mg 05/04/2020 12:00:00 AM EDT tablet 90 TAKE ONE TABLET BY MOUTH THREE TIMES A DAY TAKE ONE TABLET BY MOUTH THREE TIMES A DAY SOLD: 05/05/2020 [facility] 20 mg 05/04/2020 12:00:00 AM EDT capsule,delayed release (DR/EC) 60 TAKE ONE CAPSULE BY MOUTH EVERY MORNING FOR 2 WEEKS THEN TAKE TWO CAPSULES DAILY TAKE ONE CAPSULE BY MOUTH EVERY MORNING FOR 2 WEEKS THEN TAKE TWO CAPSULES DAILY SOLD: 05/05/2020 [facility] 600 mg 05/04/2020 12:00:00 AM EDT tablet 90 TAKE ONE TABLET BY MOUTH THREE TIMES A DAY TAKE ONE TABLET BY MOUTH THREE TIMES A DAY SOLD: 06/07/2020 [facility] celecoxib 100 MG Oral Capsule [Celebrex] Celebrex 05/03/2020 12 :00:00 AM EDT ORAL active [facility]ENT ([facility]) duloxetine 20 MG Delayed Release Oral Capsule Duloxetine HCL 05/03/2020 12:00:00 AM EDT active MEDENT ([facility]) gabapentin 600 MG Oral Tablet Gabapentin 05/03/2020 12:00:00 AM EDT active MEDENT ([facility]) 25 mg 04/25/2020 12:00:00 AM EST tablet 30 TAKE ONE TABLET BY MOUTH EVERY DAY TAKE ONE TABLET BY MOUTH EVERY DAY SOLD: 06/07/2020 [facility] 25 mg 04/25/2020 12:00:00 AM EST tablet 30 TAKE ONE TABLET BY MOUTH EVERY DAY TAKE ONE TABLET BY MOUTH EVERY DAY SOLD: 04/30/2020 [facility] 25 mg 04/25/2020 12:00:00 AM EST tablet 30 TAKE ONE TABLET BY MOUTH EVERY DAY TAKE ONE TABLET BY MOUTH EVERY DAY SOLD: 07/30/2020 [facility] 25 mg 04/25/2020 12:00:00 AM EST tablet 30 TAKE ONE TABLET BY MOUTH EVERY DAY TAKE ONE TABLET BY MOUTH EVERY DAY SOLD: 12/05/2020 [facility] 25 mg 04/25/2020 12:00:00 AM EST tablet 30 TAKE ONE TABLET BY MOUTH EVERY DAY TAKE ONE TABLET BY MOUTH EVERY DAY SOLD: 10/11/2020 [facility] Tobramycin 3 MG/ML Ophthalmic Solution Tobramycin 04/23/2020 12:0 0:00 AM EST completed MEDENT ([facility]) 0.3 % 04/23/2020 12:00:00 AM EST drops 5 INSTILL 1-2 DROPS INTO AFFECTED EYE THREE TIMES A DAY FOR 7DAYS INSTILL 1-2 DROPS INTO AFFECTED EYE THRE E TIMES A DAY FOR 7DAYS SOLD: 04/23/2020 [facility] 12.5 mg 04/07/2020 12:00:00 AM EST tablet 30 TAKE ONE TABLET BY MOUTH EVERY DAY IN THE MORNING TAKE ONE TABLET BY MOUTH EVERY DAY IN THE MORNING SOLD : 07/30/2020 [facility] 12.5 mg 04/07/2020 12:00:00 AM EST tablet 30 TAKE ONE TABLET BY MOUTH EVERY DAY IN THE MORNING TAKE ONE TABLET BY MOUTH EVERY DAY IN THE MORNING SOLD : 06/07/2020 [facility] Hydrochlorothiazide 12.5 MG Oral Tablet HYDROCHLOROTHIAZIDE 04/07/2020 12:00:00 AM EST tablet 30 TAKE ONE TABLET BY MOUTH KINDRA RY DAY IN THE MORNING TAKE ONE TABLET BY MOUTH EVERY DAY IN THE MORNING SOLD: 12/05/2020 [facility] Hydrochlorothiazide 12.5 MG Oral Tablet HYDROCHLOROTHIAZIDE 04/07/2020 12:00:00 AM EST tablet 30 TAKE ONE TABLET BY MOUTH KINDRA RY DAY IN THE MORNING TAKE ONE TABLET BY MOUTH EVERY DAY IN THE MORNING SOLD: 04/09/2020 [facility] Hydrochlorothiazide 12.5 MG Oral Tablet HYDROCHLOROTHIAZIDE 04/07/2020 12:00:00 AM EST tablet 30 TAKE ONE TABLET BY MOUTH KINDRA RY DAY IN THE MORNING TAKE ONE TABLET BY MOUTH EVERY DAY IN THE MORNING SOLD: 05/05/2020 [facility] 12.5 mg 04/07/2020 12:00:00 AM EST tablet 30 TAKE ONE TABLET BY MOUTH EVERY DAY IN THE MORNING TAKE ONE TABLET BY MOUTH EVERY DAY IN THE MORNING SOLD : 10/11/2020 [facility] 20 mg 04/06/2020 12:00:00 AM EST tablet 30 TAKE ONE TABLET BY MOUTH EVERY DAY NEEDED FOR EDEMA TAKE ONE TABLET BY MOUTH EVERY DAY NEEDED FOR EDEMA SOLD: 06/07/2020 [facility] tizanidine 4 MG Oral Tablet TIZANIDINE HCL 04/06/2020 12:00:00 AM EST tablet 90 TAKE ONE TABLET BY MOUTH EVERY DAY IN THE MORNING AND 1-2 TABLETS AT BEDTIME TAKE ONE TABLET BY MOUTH EVERY DAY IN THE MORNING AND 1-2 TABLETS AT BEDTIME SOLD: 04/06/2020 [facility] 20 mg 04/06/2020 12:00:00 AM EST tablet 30 TAKE ONE TABLET BY MOUTH EVERY DAY NEEDED FOR EDEMA TAKE ONE TABLET BY MOUTH EVERY DAY NEEDED FOR EDEMA SOLD: 07/30/2020 [facility] tizanidine 4 MG Oral Tablet TIZANIDINE HCL 04/06/2020 12:00:00 AM EST tablet 90 TAKE ONE TABLET BY MOUTH EVERY DAY IN THE MORNING AND 1-2 TABLETS AT BEDTIME TAKE ONE TABLET BY MOUTH EVERY DAY IN THE MORNING AND 1-2 TABLETS AT BEDTIME SOLD: 10/11/2020 [facility] tizanidine 4 MG Oral Tablet TIZANIDINE HCL 04/06/2020 12:00:00 AM EST tablet 90 TAKE ONE TABLET BY MOUTH EVERY DAY IN THE MORNING AND 1-2 TABLETS AT BEDTIME TAKE ONE TABLET BY MOUTH EVERY DAY IN THE MORNING AND 1-2 TABLETS AT BEDTIME SOLD: 12/05/2020 [facility] 400 mg 04/06/2020 12:00:00 AM EST capsule 90 TAKE ONE CAPSULE BY MOUTH THREE TIMES A DAY TAKE ONE CAPSULE BY MOUTH THREE TIMES A DAY SOLD: 04/06/2020 [facility] 20 mg 04/06/2020 12:00:00 AM EST tablet 30 TAKE ONE TABLET BY MOUTH EVERY DAY NEEDED FOR EDEMA TAKE ONE TABLET BY MOUTH EVERY DAY NEEDED FOR EDEMA SOLD: 10/11/2020 [facility] 1 % 04/06/2020 12:00:00 AM EST drops,suspension 10 INSTILL 1 DROP IN EACH EYE FOUR TIMES A DAY DIRECTED INSTILL 1 DROP IN EACH EYE FOUR TIMES A DAY DIRECTED SOLD: 04/06/2020 [facility] 20 mg 04/06/2020 12:00:00 AM EST tablet 30 TAKE ONE TABLET BY MOUTH EVERY DAY NEEDED FOR EDEMA TAKE ONE TABLET BY MOUTH EVERY DAY NEEDED FOR EDEMA SOLD: 12/05/2020 [facility] tizanidine 4 MG Oral Tablet TIZANIDINE HCL 04/06/2020 12:00:00 AM EST tablet 90 TAKE ONE TABLET BY MOUTH EVERY DAY IN THE MORNING AND 1-2 TABLETS AT BEDTIME TAKE ONE TABLET BY MOUTH EVERY DAY IN THE MORNING AND 1-2 TABLETS AT BEDTIME SOLD: 07/30/2020 [facility] 5 mg/gram (0.5 %) 04/06/2020 12:00:00 AM EST ointment 3 APPLY THIN LAYER IN EACH EYE TWO TIMES A DAY DIRECTED APPLY THIN LAYER IN EACH EYE TWO TIMES A DAY DIRECTED SOLD: 04/06/2020 [facility] 5 mg/gram (0.5 %) 04/06/2020 12:00:00 AM EST ointment 3 APPLY THIN LAYER IN EACH EYE TWO TIMES A DAY DIRECTED APPLY THIN LAYER IN EACH EYE TWO TIMES A DAY DIRECTED SOLD: 04/17/2020 [facility] 20 mg 04/06/2020 12:00:00 AM EST tablet 30 TAKE ONE TABLET BY MOUTH EVERY DAY NEEDED FOR EDEMA TAKE ONE TABLET BY MOUTH EVERY DAY NEEDED FOR EDEMA SOLD: 04/06/2020 [facility] tizanidine 4 MG Oral Tablet TIZANIDINE HCL 04/06/2020 12:00:00 AM EST tablet 90 TAKE ONE TABLET BY MOUTH EVERY DAY IN THE MORNING AND 1-2 TABLETS AT BEDTIME TAKE ONE TABLET BY MOUTH EVERY DAY IN THE MORNING AND 1-2 TABLETS AT BEDTIME SOLD: 06/07/2020 [facility] Amoxicillin 500 MG Oral Capsule Amoxicillin 500 MG 02/26/2020 12:00 :00 AM EST 1.0 {capsule} active Amoxicillin 500 MG eCW1 ([facility]) Amoxicillin 500 MG Oral Capsule Amoxicillin 500 MG 02/26/2020 12:00 :00 AM EST 1.0 {capsule} active Amoxicillin 500 MG eCW1 ([facility]) Amoxicillin 500 MG Oral Capsule Amoxicillin 500 MG 02/26/2020 12:00 :00 AM EST 1.0 {capsule} active Amoxicillin 500 MG eCW1 ([facility]) Amoxicillin 500 MG Oral Capsule Amoxicillin 500 MG 02/26/2020 12:00 :00 AM EST 1.0 {capsule} active Amoxicillin 500 MG eCW1 ([facility]) Amoxicillin 500 MG Oral Capsule Amoxicillin 500 MG 02/26/2020 12:00 :00 AM EST 1.0 {capsule} active Amoxicillin 500 MG eCW1 ([facility]) Amoxicillin 500 MG Oral Capsule Amoxicillin 500 MG 02/26/2020 12:00 :00 AM EST 1.0 {capsule} active Amoxicillin 500 MG eCW1 ([facility]) Amoxicillin 500 MG Oral Capsule Amoxicillin 500 MG 02/26/2020 12:00 :00 AM EST 1.0 {capsule} active Amoxicillin 500 MG eCW1 ([facility]) Amoxicillin 500 MG Oral Capsule Amoxicillin 500 MG 02/26/2020 12:00 :00 AM EST 1.0 {capsule} active Amoxicillin 500 MG eCW1 ([facility]) Amoxicillin 500 MG Oral Capsule Amoxicillin 500 MG 02/26/2020 12:00 :00 AM EST 1.0 {capsule} active Amoxicillin 500 MG eCW1 ([facility]) 500 mg 02/26/2020 12:00:00 AM EST capsule 30 TAKE ONE CAPSULE BY MOUTH THREE TIMES A DAY FOR 10 DAYS TAKE ONE CAPSULE BY MOUTH THREE TIMES A DAY FOR 10 DAYS SOLD: 02/26/2020 [facility] 1 % 02/25/2020 12:00:00 AM EST drops,suspension 10 INSTILL 1 DROP IN EACH EYE FOUR TIMES A DAY DIRECTED INSTILL 1 DROP IN EACH EYE FOUR TIMES A DAY DIRECTED SOLD: 02/26/2020 [facility] 15 mg 02/24/2020 12:00:00 AM EST tablet extended release 24hr 30 TAKE ONE TABLET BY MOUTH EVERY DAY TAKE ONE TABLET BY MOUTH EVERY DAY SOLD: 10/11/2020 [facility] 20 mg 02/24/2020 12:00:00 AM EST tablet 90 TAKE 1 TABLET BY MOUTH EVERY DAY IN THE EVENING TAKE 1 TABLET BY MOUTH EVERY DAY IN THE EVENING SOLD: 2020 [facility] 15 mg 02/24/2020 12:00:00 AM EST tablet extended release 24hr 30 TAKE ONE TABLET BY MOUTH EVERY DAY TAKE ONE TABLET BY MOUTH EVERY DAY SOLD: 02/26/2020 [facility] 15 mg 02/24/2020 12:00:00 AM EST tablet extended release 24hr 30 TAKE ONE TABLET BY MOUTH EVERY DAY TAKE ONE TABLET BY MOUTH EVERY DAY SOLD: 04/06/2020 [facility] 15 mg 02/24/2020 12:00:00 AM EST tablet extended release 24hr 30 TAKE ONE TABLET BY MOUTH EVERY DAY TAKE ONE TABLET BY MOUTH EVERY DAY SOLD: 06/07/2020 [facility] 15 mg 02/24/2020 12:00:00 AM EST tablet extended release 24hr 30 TAKE ONE TABLET BY MOUTH EVERY DAY TAKE ONE TABLET BY MOUTH EVERY DAY SOLD: 05/05/2020 [facility] 20 mg 02/24/2020 12:00:00 AM EST tablet 90 TAKE 1 TABLET BY MOUTH EVERY DAY IN THE EVENING TAKE 1 TABLET BY MOUTH EVERY DAY IN THE EVENING SOLD: 2020 [facility] 15 mg 02/24/2020 12:00:00 AM EST tablet extended release 24hr 30 TAKE ONE TABLET BY MOUTH EVERY DAY TAKE ONE TABLET BY MOUTH EVERY DAY SOLD: 07/30/2020 [facility] 0.3-0.1 % 02/06/2020 12:00:00 AM EST drops,suspension 10 PLACE 1 DROP IN EACH EYE [address] 1 DROP IN EACH EYE 6 TIMES A DAY SOLD: 02/06/2020 [facility] tizanidine 4 MG Oral Tablet TIZANIDINE HCL 12/25/2019 12:00:00 AM EST tablet 90 TAKE 1 TABLET BY MOUTH EVERY MORNING AND 1-2 TABLETS A T BEDTIME NEEDED TAKE 1 TABLET BY MOUTH EVERY MORNING AND 1-2 TABLETS AT BEDTIME NEEDED SOLD: 12/25/2019 [facility] tizanidine 4 MG Oral Tablet TIZANIDINE HCL 12/25/2019 12:00:00 AM EST tablet 90 TAKE 1 TABLET BY MOUTH EVERY MORNING AND 1-2 TABLETS A T BEDTIME NEEDED TAKE 1 TABLET BY MOUTH EVERY MORNING AND 1-2 TABLETS AT BEDTIME NEEDED SOLD: 02/09/2020 [facility] tizanidine 4 MG Oral Tablet Tizanidine HCL 12/25/2019 12:00:00 AM EST ORAL active MEDENT ([facility] ) gabapentin 400 MG Oral Capsule Gabapentin 12/25/2019 12:00:00 AM EST ORAL completed MEDENT ([facility]) 400 mg 12/25/2019 12:00:00 AM EST capsule 90 TAKE ONE CAPSULE BY MOUTH THREE TIMES A DAY TAKE ONE CAPSULE BY MOUTH THREE TIMES A DAY SOLD: 02/09/2020 [facility] 400 mg 12/25/2019 12:00:00 AM EST capsule 90 TAKE ONE CAPSULE BY MOUTH THREE TIMES A DAY TAKE ONE CAPSULE BY MOUTH THREE TIMES A DAY SOLD: 12/25/2019 [facility] 500 mg 12/17/2019 12:00:00 AM EDT tablet 20 TAKE ONE TABLET BY MOUTH EVERY 12 HOURS FOR 10 DAYS TAKE ONE TABLET BY MOUTH EVERY 12 HOURS FOR 10 DAYS SO LD: 12/17/2019 [facility] Ciprofloxacin 500 MG Oral Tablet [Cipro] Cipro 500 MG Cipro 500 MG 12/17/2019 12:00:00 AM EDT 1.0 {tablet} active Ci pro 500 MG eCW1 ([facility]) 300 mg 12/16/2019 12:00:00 AM EDT capsule 90 TAKE ONE CAPSULE BY MOUTH THREE TIMES A DAY TAKE ONE CAPSULE BY MOUTH THREE TIMES A DAY SOLD: 12/16/2019 [facility] 4 mg 12/16/2019 12:00:00 AM EDT capsule 60 TAKE ONE CAPSULE BY MOUTH THREE TIMES A DAY TAKE ONE CAPSULE BY MOUTH THREE TIMES A DAY SOLD: 12/16/2019 [facility] 81 mg 12/03/2019 12:00:00 AM EDT tablet,delayed release (DR/EC) 30 TAKE ONE TABLET BY MOUTH EVERY DAY TAKE ONE TABLET BY MOUTH EVERY DAY SOLD: 10/11/2020 [facility] 81 mg 12/03/2019 12:00:00 AM EDT tablet,delayed release (DR/EC) 30 TAKE ONE TABLET BY MOUTH EVERY DAY TAKE ONE TABLET BY MOUTH EVERY DAY SOLD: 02/09/2020 [facility] 81 mg 12/03/2019 12:00:00 AM EDT tablet,delayed release (DR/EC) 30 TAKE ONE TABLET BY MOUTH EVERY DAY TAKE ONE TABLET BY MOUTH EVERY DAY SOLD: 07/30/2020 [facility] 81 mg 12/03/2019 12:00:00 AM EDT tablet,delayed release (DR/EC) 30 TAKE ONE TABLET BY MOUTH EVERY DAY TAKE ONE TABLET BY MOUTH EVERY DAY SOLD: 06/07/2020 [facility] 81 mg 12/03/2019 12:00:00 AM EDT tablet,delayed release (DR/EC) 30 TAKE ONE TABLET BY MOUTH EVERY DAY TAKE ONE TABLET BY MOUTH EVERY DAY SOLD: 12/06/2019 [facility] 81 mg 12/03/2019 12:00:00 AM EDT tablet,delayed release (DR/EC) 30 TAKE ONE TABLET BY MOUTH EVERY DAY TAKE ONE TABLET BY MOUTH EVERY DAY SOLD: 04/06/2020 [facility] NITROFURANTOIN, MACROCRYSTALS 25 MG / Ni trofurantoin, Monohydrate 75 MG Oral Capsule [Macrobid] Macrobid 100 MG Macrobid 100 MG 11/26/2019 12:00:00 AM EDT active Macrobid 100 MG eCW1 ([facility]) NITROFURANTOIN, MACROCRYSTALS 25 MG / Ni trofurantoin, Monohydrate 75 MG Oral Capsule [Macrobid] Macrobid 100 MG Macrobid 100 MG 11/26/2019 12:00:00 AM EDT active Macrobid 100 MG eCW1 ([facility]) 100 mg 11/26/2019 12:00:00 AM EDT capsule 14 TAKE ONE CAPSULE BY MOUTH TWICE A DAY FOR 7 DAYS TAKE ONE CAPSULE BY MOUTH TWICE A DAY FOR 7 DAYS SOLD: 11/27/2019 [facility] NITROFURANTOIN, MACROCRYSTALS 25 MG / Ni trofurantoin, Monohydrate 75 MG Oral Capsule [Macrobid] Macrobid 100 MG Macrobid 100 MG 11/26/2019 12:00:00 AM EDT active Macrobid 100 MG eCW1 ([facility]) NITROFURANTOIN, MACROCRYSTALS 25 MG / Ni trofurantoin, Monohydrate 75 MG Oral Capsule [Macrobid] Macrobid 100 MG Macrobid 100 MG 11/26/2019 12:00:00 AM EDT active Macrobid 100 MG eCW1 ([facility]) NITROFURANTOIN, MACROCRYSTALS 25 MG / Ni trofurantoin, Monohydrate 75 MG Oral Capsule [Macrobid] Macrobid 100 MG Macrobid 100 MG 11/26/2019 12:00:00 AM EDT active Macrobid 100 MG eCW1 ([facility]) Nystatin [id number] UNT/ML Topical Cream 100,000 unit/gram NYSTA TIN 11/21/2019 12:00:00 AM EDT cream 60 APPLY TOPICALLY TWO TIMES A DAY NEEDED APPLY TOPICALLY TWO TIMES A DAY NEEDED SOLD: 11/27/2019 [facility] 25 mg 10/22/2019 12:00:00 AM EDT tablet 90 TAKE ONE TABLET BY MOUTH EVERY DAY TAKE ONE TABLET BY MOUTH EVERY DAY SOLD: 02/09/2020 [facility] Hydrochlorothiazide 12.5 MG Oral Tablet HYDROCHLOROTHIAZIDE 10/22/2019 12:00:00 AM EDT tablet 30 TAKE ONE TABLET BY MOUTH KINDRA RY DAY IN THE MORNING TAKE ONE TABLET BY MOUTH EVERY DAY IN THE MORNING SOLD: 02/09/2020 [facility] 20 mg 10/22/2019 12:00:00 AM EDT tablet 30 TAKE ONE TABLET BY MOUTH EVERY DAY NEEDED FOR EDEMA TAKE ONE TABLET BY MOUTH EVERY DAY NEEDED FOR EDEMA SOLD: 02/09/2020 [facility] meloxicam 7.5 MG Oral Tablet MELOXICAM 10/20/2019 12:00:00 AM EDT tabl et 60 TAKE ONE TABLET BY MOUTH TWICE A DAY AFTER MEALS TAKE ONE TABLET BY MOUTH TWICE A DAY AFTER MEALS SOLD: 02/09/2020 [facility] meloxicam 7.5 MG Oral Tablet MELOXICAM 10/20/2019 12:00:00 AM EDT tabl et 60 TAKE ONE TABLET BY MOUTH TWICE A DAY AFTER MEALS TAKE ONE TABLET BY MOUTH TWICE A DAY AFTER MEALS SOLD: 12/06/2019 [facility] meloxicam 7.5 MG Oral Tablet MELOXICAM 09/19/2019 12:00:00 AM EDT tabl et 60 TAKE ONE TABLET BY MOUTH TWICE A DAY AFTER MEALS TAKE ONE TABLET BY MOUTH TWICE A DAY AFTER MEALS SOLD: 04/06/2020 [facility] tizanidine 4 MG Oral Capsule Tizanidine HCL 09/19/2019 12:00:00 AM EDT completed MEDENT ([facility] ) gabapentin 300 MG Oral Capsule Gabapentin 07/28/2019 12:00:00 AM EDT ORAL completed MEDENT ([facility] ) Insurance Providers Payer name Policy type / Coverage type Policy ID Covered democrat ID Covered democrat's relationship to turner Policy Turner Plan Information [facility] [id number] Self [id number] [place]/307 [id number] SP [id number] [employer] [place] 302/307 [id number] SP [id number] [employer] [place] 306/806 [id number] SP [id number] [employer] [place] 306/806 [id number] SP [id number] [place] [place] PPO 302/307 [id number] SP [id number] [facility] UNAVAILABLE [id number] S UNAVAILABLE EXCELLUS BCBS B [id number] S [id number] [id number] [place] [place] PPO 302/307 [id number] SP [id number] ANSI-Commercial [id number] ANSI-Commercial [id number] ANSI-Commercial [id number] [employer] [place] 306/806 [id number] SP [id number] ANSI-Commercial [id number] ANSI-Commercial [id number] [id number] Self [id number] ANSI-Commercial [id number] ANSI-Commercial [id number] ANSI-Commercial [id number] [id number] Self [id number] [employer] [id number] Self [id number] [employer] [id number] Self [id number] [employer] [id number] Self [id number] [employer] [id number] Self [id number] [employer] [id number] Self [id number] [employer] [id number] Self [id number] [employer] [id number] Self [id number] [employer] [id number] Self [id number] [employer] [id number] Self [id number] [employer] [id number] Self [id number] [employer] [id number] Self [id number] [employer] [id number] Self ANSI-Commercial [id number] [id number] Self [id number] [employer] [id number] Self [id number] [employer] [id number] Self [id number] [employer] [id number] Self [id number] [employer] [place] PPO 302/307 [id number] SP [id number] [employer] [place] PPO 302/307 [id number] SP [id number] [employer] [facility] [place] [id number] SP [id number] [facility] [id number] SP [id number] [employer] [facility] [id number] SP [id number] [facility] O [id number] O [id number] [id number] SP [id number] [employer] [place] 306/806 [id number] SP [id number] [facility] O [id number] S [id number] Problems, Conditions, and Diagnoses Code Display Name Description Problem Type Effective Dates Data Source(s) M17.10 [id number] Osteoarthritis of knee, unilateral Proble m 01/05/2021 12:00:00 AM EST eCW1 ([facility]) M47.817 Lumbosacral spondylosis without myelopat hy DJD (degenerative joint disease), lumbosacral Problem 12/24/2020 12:00:00 AM EDT eCW1 ([facility]) N95.2 [id number] Vaginal atrophy Problem 08/03/2020 12:00:00 AM EDT eCW1 ([facility]) I50.9 [id number] Congestive heart kyleigh lure, unspecified HF chronicity, unspecified heart failure type Problem 01/22/2020 12:00:00 AM EST eCW1 ([facility]) N39.0 [id number] Recurrent UTI Problem 12/25/2019 12:00:00 AM EST eCW1 ([facility]) R73.01 [id number] IFG (impaired fasting glucose) Problem 12/25/2019 12:00:00 AM EST eCW1 ([facility]) K80.50 [id number] Biliary colic Problem 12/25/2019 12:00:00 AM EST eCW1 ([facility]) M47.816 [id number] Lumbar spondylosis Problem 12/25/2019 12:00: 00 AM EST eCW1 ([facility]) [id number] Essential hypertension Essential hypertension Problem 12/08/2019 12:00:00 AM EDT MEDENT ([facility]) Surgeries/Procedures Procedure Description Date Indications Data Source(s) Imm: Flublok Quadrivalent 18 years & older 0.5mL IM Influenz a 01/04/2021 12:00:00 AM EST eCW1 ([facility]) OFFICE OUTPATIENT VISIT 25 MINUTES 12/13/2020 12:00:00 AM EDT MEDENT ([facility]) OFFICE OUTPATIENT VISIT 25 MINUTES 12/08/2020 12:00:00 AM EDT MEDENT ([facility]) RADIOLOGIC EXAM KNEE COMPLETE 4/MORE VIEWS 11/09/2020 12:00:00 AM EDT MEDENT ([facility]) OFFICE OUTPATIENT VISIT 15 MINUTES 11/09/2020 12:00:00 AM EDT MEDENT ([facility]) OFFICE OUTPATIENT NEW 45 MINUTES 11/09/2020 12:00:00 A M EDT MEDENT ([facility]) OFFICE OUTPATIENT VISIT 25 MINUTES 11/09/2020 12:00:00 AM EDT MEDENT ([facility]) ARTHROCENTESIS ASPIR&/INJECTION MAJOR JT/BURSA 021 12:00:00 AM EDT MEDENT ([facility]) OFFICE OUTPATIENT VISIT 15 MINUTES 09/21/2020 12:00:00 AM EDT MEDENT ([facility]) OFFICE OUTPATIENT VISIT 25 MINUTES 09/21/2020 12:00:00 AM EDT MEDENT ([facility]) OFFICE OUTPATIENT VISIT 15 MINUTES 08/12/2020 12:00:00 AM EDT MEDENT ([facility], [facility]) ARTHROCENTESIS ASPIR&/INJECTION MAJOR JT/BURSA 021 12:00:00 AM EDT MEDENT ([facility]) OFFICE OUTPATIENT VISIT 25 MINUTES 07/07/2020 12:00:00 AM EDT MEDENT ([facility]) ARTHROCENTESIS ASPIR&/INJECTION MAJOR JT/BURSA 021 12:00:00 AM EDT MEDENT ([facility]) OFFICE OUTPATIENT VISIT 25 MINUTES 06/09/2020 12:00:00 AM EDT MEDENT ([facility]) OFFICE OUTPATIENT VISIT 25 MINUTES 05/03/2020 12:00:00 AM EDT MEDENT ([facility]) OFFICE OUTPATIENT VISIT 15 MINUTES 04/23/2020 12:00:00 AM EST MEDENT ([facility]) NJX ANES&/STRD W/IMG TFRML EDRL LMBR/SAC 1 LVL 020 12:00:00 AM EST MEDENT ([facility]) Epidurography Radiological Supervision & Interpretation 02/09/2020 12:00:00 AM EST MEDENT ([facility]) Moderate Sedation Services; Same Phys Intl 15 Mins; PT >= 5 Years 02/09/2020 12:00:00 AM EST MEDENT ([facility]) X-Ray Hip Unilateral With Pelvis 2-3 Views 11/14/2019 12:00:00 AM EDT MEDENT ([facility]) Results ID Date Data Source URINE CULTURE 01/04/2021 12:00:00 AM EST eCW1 ([facility]) Name Value Range Interpretation Code Description Data Damaris rce(s) Supporting Document(s) URINE CULTURE eCW1 ([facility]) Laboratory studies (set) URINE CULTU RE eCW1 ([facility]) ID Date Data Source WWBC DIGITAL / VAUGHN BILATERAL MAMMO SCREENING (Ultraso und if indicated) 08/03/2020 12:00:00 AM EDT eCW1 ([facility]) Name Value Range Interpretation Code Description Data Damaris rce(s) Supporting Document(s) WWBC DIGITAL / VAUGHN BILAT ERAL MAMMO SCREENING (Ultrasound if indicated) eCW1 ([facility]) ID Date Data Source LIPID PANEL (CARDIAC RISK) 06/07/2020 12:00:00 AM EDT eCW1 ( [facility]) Name Value Range Interpretation Code Description Data Damaris rce(s) Supporting Document(s) Triglyceride [Mass/volume] in Serum or Plasma by calculation 117 <150 TRIGLYCERIDES LEVEL eCW1 ([facility]) Cholesterol in HDL [Moles/volume] in Serum or Plasma 56 >40 HDL CHOLESTEROL eCW1 ([facility]) Cholesterol [Moles/volume] in Serum or Plasma 152 <200 CHOLESTEROL LEVEL eCW1 ([facility]) Cholesterol in LDL [Mass/volume] in Serum or Plasma by calculation 73 <100 LDL CHOLESTEROL eCW1 ([facility]) 96 NON-HDL-C eCW1 (Critical access hospital) 2.714 <5 CHOLESTEROL RISK RATIO eCW1 ([facility]) ID Date Data Source [id number] 06/07/2020 12:00:00 AM EDT eCW1 ([facility]) Name Value Range Interpretation Code Description Data Damaris rce(s) Supporting Document(s) Hemoglobin A1c/Hemoglobin.total in Blood 5.5 HEMOGLOBIN A1c eCW1 ([facility]) ID Date Data Source Comprehensive Metabolic Profile (CMP) 06/07/2020 12:00:00 AM EDT eCW1 ([facility]) Name Value Range Interpretation Code Description Data Damaris rce(s) Supporting Document(s) 96 70-100 GLUCOSE, FASTING eCW1 ([facility]) 13 7-18 BLOOD UREA NITROGEN eCW1 ([facility]) 0.68 0.55-1.30 CREATININE FOR GFR eCW1 ([facility]) 140 136-145 SODIUM LEVEL eCW1 ([facility]) > 60.0 >45 GLOMERULAR FILTRATION RATE eCW 1 ([facility]) 4.2 3.5-5.1 POTASSIUM SERUM eCW1 ([facility]) 105 98-107 CHLORIDE LEVEL eCW1 ([facility]) 29 21-32 CARBON DIOXIDE LEVEL eCW1 ([facility]) 9.3 8.8-10.2 CALCIUM LEVEL eCW1 ([facility]) 41 7-37 AST/SGOT eCW1 ([facility]) 56 12-78 ALT/SGPT eCW1 ([facility]) 6.9 6.4-8.2 TOTAL PROTEIN eCW1 ([facility]) 97 45-117 ALKALINE PHOSPHATASE eCW1 ([facility]) 0.5 0.2-1.0 BILIRUBIN,TOTAL eCW1 ([facility]) 3.8 3.2-5.2 ALBUMIN eCW1 ([facility] hospital) 1.2 1.2-2.2 ALBUMIN/GLOBULIN RATIO eCW1 ([facility]) ID Date Data Source CBC with Differential 06/07/2020 12:00:00 AM EDT eCW1 ([facility]) Name Value Range Interpretation Code Description Data Damaris rce(s) Supporting Document(s) 7.2 4.0-10.0 WHITE BLOOD COUNT eCW1 ([facility]) 4.79 4.00-5.40 RED BLOOD COUNT eCW1 ([facility]) 14.7 12.0-15.5 HEMOGLOBIN eCW1 ([facility]) 93.9 80.0-96.0 MEAN CORPUSCULAR VOLUME e CW1 ([facility]) 45.0 36.0-47.0 HEMATOCRIT eCW1 ([facility]) 30.7 27.0-33.0 MEAN CORPUSCULAR HEMOGLOB IN eCW1 ([facility]) 32.7 32.0-36.5 MEAN CORPUSCULAR HGB CONC eCW1 ([facility]) 62.0 36.0-66.0 NEUTROPHILS % eCW1 ([facility]) 13.0 11.5-14.5 RED CELL DISTRIBUTION WID TH eCW1 ([facility]) 278 150-450 PLATELET COUNT, AUTOMATED eCW1 ([facility]) 4.4 2.0-8.0 MONO % eCW1 (Critical access hospital) 28.4 24.0-44.0 LYMPH % eCW1 ([facility] hospital) 4.2 0.0-3.0 EOS % eCW1 ([facility] hospital) 4.5 1.5-8.5 NEUTROPHILS # eCW1 ([facility]) 0.6 0.0-1.0 BASO % eCW1 ([facility] access hospital) 0.3 0.0-0.5 EOS # eCW1 ([facility] hospital) 0.3 0.0-0.8 MONO # eCW1 ([facility] hospital) 2.1 1.5-5.0 LYMPH # eCW1 ([facility] access hospital) 0.0 0.0-0.2 BASO # eCW1 ([facility]) ID Date Data Source [id number] 04/21/2020 12:00:00 AM EST [facility] Yannick GREGORIO Patient Name: OCTAVIO TAVERAS [facility] Date of : 1960 1 Date of Exam: 04/21/2020DEVON Martinez [id number]#: Fax: [id number] EXAM: MRI LUMBAR SPINE WITHOUT&WITH CONTRASTPROCEDURE INFORMATION:Exam: MR Lumbar Spine Without and With ContrastExam date and time: 04/21/2020 11:06 AM Age: 60 years oldClinical indication: Low back painTECHNIQUE: Imaging protocol: Multiplanar magnetic resonance images of thelumbar spine without and with intravenous contrast. Contrast material:PROHANCE; Contrast volume: 26 ml; Contrast route: INTRAVENOUS (IV);COMPARISON: MRI LUMBAR SPINE WITHOUT CONTRAST 09/15/2019 10:15 AMFINDINGS:Limitations: The study is mildly limited due to patient motion artifact.Vertebrae: No acute compression fracture is seen. Bone marrow signal iswithin normal limits.Spinal cord: The conus medullaris terminates at the L1 level. There is noevidence of arachnoiditis or cauda equina compression.L1-L2: There is a small shallow right paracentral disc protrusion,unchanged from the prior exam. There is no significant spinal canalstenosis or neural foraminal narrowing.L2-L3: There is a right paracentral disc protrusion, measuring 5 mm in APdiameter. A small amount of disc material is migrating cranially roughly 5mm from the level of the disc. This is causing minimal spinal canalstenosis. There is no significant neural foraminal narrowing. The findingsare similar to the prior exam.L3-L4: There is mild diffuse circumferential disc bulging and facetarthropathy. There is no significant spinal canal or neural foraminalstenosis. An enhancing annular fissure is noted in the left extraforaminaland far left lateral region.L4-L5: There is mild diffuse circumferential disc bulging with rightforaminal and far left lateral annular fissures. Enhancement is noted inthe region of the annular fissures. There is no significant spinal canalstenosis. Mild left and minimal right neural foraminal narrowing ispresent.L5-S1: There is mild diffuse circumferential disc bulging with asuperimposed shallow central disc protrusion and a far right lateral discosteophyte complex. This is causing minimal spinal canal stenosis and mildright neural foraminal narrowing. There is no left foraminal stenosis.Soft tissues: Unremarkable.IMPRESSION:Stable degenerative changes of the lumbar spine as discussed aboveThank you for allowing us to participate in the care of your patient.Dictated and Authenticated by: Escobar Zhou MD 04/21/2020 1:44 PMEastern Time ([place] & [place])NitishV/Simba you for referring CELESTINO TAVERAS to our office. Electronically Signed - NITISH 04/21/20 14:07 Name Value Range Interpretation Code Description Data Damaris rce(s) Supporting Document(s) ID Date Data Source [id number] 04/13/2020 02:17:00 PM EST [facility] Name Value Range Interpretation Code Description Data Damaris rce(s) Supporting Document(s) Creatinine For GFR 0.86 mg/dL 0.55-1.30 MEDENT ([facility]) Glomerular Filtration Rate Laboratory test result [facility]) <content>Units are mL/min/1.73 m2</content>
<content></content>
<content>Chronic Kidney Disease Staging per NKF:</content>
<content></content>
<content>Stage I & II GFR >=60 Normal to Mildly Decreased</content>
<content>Stage III GFR 30- 59 Moderately Decreased</content>
<content>Stage IV GFR 15-29 Severely Decreased</content>
<content>Stage V GFR <15 Very Little GFR Left</content>
<content>ESRD GFR <15 on SET DECORATOR</content>
<content></content> ID Date Data Source [id number] 04/13/2020 02:17:00 PM EST MEDENT ([facility]) Name Value Range Interpretation Code Description Data Damaris rce(s) Supporting Document(s) Urea nitrogen [Mass/volume] in Serum or Plasma 14 mg/dL 7-18 MEDENT ([facility]) ID Date Data Source [id number] 03/04/2020 10:00:00 AM EST [facility] Name Value Range Interpretation Code Description Data Damaris rce(s) Supporting Document(s) SARS coronavirus 2 RNA Not Detected [facility] [place] This lab was ordered by [facility] and reported by [facility]. ID Date Data Source UA URINALYSIS 02/24/2020 12:00:00 AM EST eCW1 ([facility]) Name Value Range Interpretation Code Description Data Damaris rce(s) Supporting Document(s) Laboratory studies (set) UA URINALYS IS eCW1 ([facility]) ID Date Data Source NT-PRO BNP 02/24/2020 12:00:00 AM EST eCW1 ([facility]) Name Value Range Interpretation Code Description Data Damaris rce(s) Supporting Document(s) 42 <125 NT-PRO BNP eCW1 ([facility]) ID Date Data Source [id number] 02/04/2020 11:30:00 AM EST MEDENT ([facility]) Name Value Range Interpretation Code Description Data Damaris rce(s) Supporting Document(s) Coronavirus 2019 Nasopharygeal Laboratory test result MEDENT ([facility]) This nucleic acid amplification test was developed and its performance characteristics determined by [facility]. Nucleic acid amplification tests include PCR and TMA. This test has not been FDA cleared or approved. This test has been authorized by FDA under an Emergency Use Authorization (EUA). This test is only authorized for the duration of time the declaration that circumstances exist justifying the authorization of the emergency use of in vitro diagnostic tests for detection of SARS-CoV-2 virus and/or diagnosis of COVID-19 infection under section 564(b)(1) of the Act, 21 U.S.C. 360bbb-3 (b) (1), unless the authorization is terminated or revoked sooner. When diagnostic testing is negative, the possibility of a false negative result should be considered in the context of a patient's recent exposures and the presence of clinical signs and symptoms consistent with COVID-19. An individual without symptoms of COVID-19 and who is not shedding SARS-CoV-2 virus would expect to have a negative (not detected) result in this assay. Performed at: [facility] [address] [place] [address] [id number] Boiler Coverer: Joselyn Narayanan PhD, Phone: [phone] Not Detected ID Date Data Source [id number] 02/04/2020 11:30:00 AM EST [facility] Name Value Range Interpretation Code Description Data Damaris rce(s) Supporting Document(s) SARS coronavirus 2 RNA [facility] This lab was ordered by [facility] and reported by [email or web address]. ID Date Data Source THYROID PEROXIDASE ANTIBODY 12/26/2019 09:23:10 AM EST eCW1 ([facility]) Name Value Range Interpretation Code Description Data Damaris rce(s) Supporting Document(s) < 28.0 eCW1 ([facility]) ID Date Data Source FREE T4 & TSH PANEL 12/26/2019 09:22:53 AM EST eCW1 ([facility]) Name Value Range Interpretation Code Description Data Damaris rce(s) Supporting Document(s) 2.540 eCW1 ([facility]) 1.16 eCW1 ([facility]) ID Date Data Source PT & APTT 12/26/2019 09:22:48 AM EST eCW1 ([facility]) Name Value Range Interpretation Code Description Data Damaris rce(s) Supporting Document(s) 26.1 PARTIAL THROMBOPLASTIN TIME eC W1 ([facility]) 1.11 INR eCW1 ([facility]) 14.5 PROTHROMBIN TIME eCW1 ([facility]) Procedure Social History Code Duration Value Status Description Data Source(s ) Smoking 01/04/2021 12:00:00 AM EST Never Smoker completed Never S moker eCW1 ([facility]) Smoking 01/04/2021 12:00:00 AM EST Never Smoker completed Never S moker eCW1 ([facility]) Smoking 01/04/2021 12:00:00 AM EST Never Smoker completed Never S moker eCW1 ([facility]) Smoking 01/04/2021 12:00:00 AM EST Never Smoker completed Never S moker eCW1 ([facility]) Smoking 01/04/2021 12:00:00 AM EST Never Smoker completed Never S moker eCW1 ([facility]) Smoking 01/04/2021 12:00:00 AM EST Never Smoker completed Never S moker eCW1 ([facility]) Smoking 01/04/2021 12:00:00 AM EST Never Smoker completed Never S moker eCW1 ([facility]) Smoking 08/12/2020 12:00:00 AM EDT Patient has never smoked co mpleted Patient has never smoked MEDENT ([facility], [facility]) Smoking 08/03/2020 12:00:00 AM EDT Never Smoker completed Never S moker eCW1 ([facility]) Smoking 08/03/2020 12:00:00 AM EDT Never Smoker completed Never S moker eCW1 ([facility]) Smoking 08/03/2020 12:00:00 AM EDT Never Smoker completed Never S moker eCW1 ([facility]) Smoking 08/03/2020 12:00:00 AM EDT Never Smoker completed Never S moker eCW1 ([facility]) Smoking 08/03/2020 12:00:00 AM EDT Never Smoker completed Never S moker eCW1 ([facility]) Smoking 08/03/2020 12:00:00 AM EDT Never Smoker completed Never S moker eCW1 ([facility]) Smoking 08/03/2020 12:00:00 AM EDT Never Smoker completed Never S moker eCW1 ([facility]) Smoking 08/03/2020 12:00:00 AM EDT Never Smoker completed Never S moker eCW1 ([facility]) Smoking 08/03/2020 12:00:00 AM EDT Never Smoker completed Never S moker eCW1 ([facility]) Smoking 08/03/2020 12:00:00 AM EDT Never Smoker completed Never S moker eCW1 ([facility]) Smoking 08/03/2020 12:00:00 AM EDT Never Smoker completed Never S moker eCW1 ([facility]) Smoking 08/03/2020 12:00:00 AM EDT Never Smoker completed Never S moker eCW1 ([facility]) Smoking 08/03/2020 12:00:00 AM EDT Never Smoker completed Never S moker eCW1 ([facility]) Smoking 06/07/2020 12:00:00 AM EDT Never Smoker completed Never S moker eCW1 ([facility]) Smoking 06/07/2020 12:00:00 AM EDT Never Smoker completed Never S moker eCW1 ([facility]) Smoking 06/07/2020 12:00:00 AM EDT Never Smoker completed Never S moker eCW1 ([facility]) Smoking 06/07/2020 12:00:00 AM EDT Never Smoker completed Never S moker eCW1 ([facility]) Smoking 06/07/2020 12:00:00 AM EDT Never Smoker completed Never S moker eCW1 ([facility]) Smoking 06/07/2020 12:00:00 AM EDT Never Smoker completed Never S moker eCW1 ([facility]) Smoking 06/07/2020 12:00:00 AM EDT Never Smoker completed Never S moker eCW1 ([facility]) Smoking 05/24/2020 12:00:00 AM EDT Never Smoker completed Never S moker eCW1 ([facility]) Smoking 05/24/2020 12:00:00 AM EDT Never Smoker completed Never S moker eCW1 ([facility]) Smoking 02/24/2020 12:00:00 AM EST Never Smoker completed Never S moker eCW1 ([facility]) Smoking 02/24/2020 12:00:00 AM EST Never Smoker completed Never S moker eCW1 ([facility]) Smoking 02/24/2020 12:00:00 AM EST Never Smoker completed Never S moker eCW1 ([facility]) Smoking 02/24/2020 12:00:00 AM EST Never Smoker completed Never S moker eCW1 ([facility]) Smoking 02/24/2020 12:00:00 AM EST Never Smoker completed Never S moker eCW1 ([facility]) Smoking 02/24/2020 12:00:00 AM EST Never Smoker completed Never S moker eCW1 ([facility]) Smoking 02/24/2020 12:00:00 AM EST Never Smoker completed Never S moker eCW1 ([facility]) Smoking 02/24/2020 12:00:00 AM EST Never Smoker completed Never S moker eCW1 ([facility]) Smoking 02/24/2020 12:00:00 AM EST Never Smoker completed Never S moker eCW1 ([facility]) Smoking 12/25/2019 12:00:00 AM EST Never Smoker completed Never S moker eCW1 ([facility]) Smoking 12/25/2019 12:00:00 AM EST Never Smoker completed Never S moker eCW1 ([facility]) Smoking 12/25/2019 12:00:00 AM EST Never Smoker completed Never S moker eCW1 ([facility]) Smoking 12/25/2019 12:00:00 AM EST Never Smoker completed Never S moker eCW1 ([facility]) Smoking 12/25/2019 12:00:00 AM EST Never Smoker completed Never S moker eCW1 ([facility]) Smoking 11/24/2019 12:00:00 AM EDT Never Smoker completed Never S moker eCW1 ([facility]) Smoking 11/24/2019 12:00:00 AM EDT Never Smoker completed Never S moker eCW1 ([facility]) Smoking 11/24/2019 12:00:00 AM EDT Never Smoker completed Never S moker eCW1 ([facility]) Smoking 11/24/2019 12:00:00 AM EDT Never Smoker completed Never S moker eCW1 ([facility]) Smoking 11/24/2019 12:00:00 AM EDT Never Smoker completed Never S moker eCW1 ([facility]) Smoking 11/24/2019 12:00:00 AM EDT Never Smoker completed Never S moker eCW1 ([facility]) Vital Signs ID Date Data Source UNK Name Value Range Interpretation Code Description Data Source(s) Body weight 306 [lb_av] 306 [lb_av] eCW1 ([facility]) Body weight 138.8 kg 138.8 kg eCW1 ([facility]) Body mass index (BMI) [Ratio] 50.14 kg/m2 50.14 kg/m2 eCW1 ([facility]) Body height 65.50 [in_i] 65.50 [in_i] eCW1 ([facility]) Heart rate 70 /min 70 /min eCW1 ([facility]) Respiratory rate 18 /min 18 /min eCW1 ([facility]) Body temperature 97.1 [degF] 97.1 [degF] eCW1 ( [facility]) Systolic blood pressure 130 mm[Hg] 130 mm[Hg] e CW1 ([facility]) Diastolic blood pressure 80 mm[Hg] 80 mm[Hg] eCW1 ([facility]) Body height 66 [in_i] 66 [in_i] MEDENT ([facility] 5'6" Body weight 305.00 [lb_av] 305.00 [lb_av] MEDEN T ([facility]) Systolic blood pressure 130 mm[Hg] 130 mm[Hg] M EDENT ([facility]) Diastolic blood pressure 82 mm[Hg] 82 mm[Hg] MEDENT ([facility]) Heart rate 90 /min 90 /min MEDENT ([facility]) Body mass index (BMI) [Ratio] 49.2 kg/m2 49.2 k g/m2 MEDENT ([facility]) Body weight 138.348 kg 138.348 kg MEDENT ([facility]) Body temperature 97.0 [degF] 97.0 [degF] MEDENT ([facility]) Systolic blood pressure 132 mm[Hg] 132 mm[Hg] M EDENT ([facility], [facility]) Diastolic blood pressure 90 mm[Hg] 90 mm[Hg] MEDENT ([facility], [facility]) Heart rate 77 /min 77 /min MEDENT ([facility]) Respiratory rate 18 /min 18 /min MEDENT ( [facility], [facility]) Oxygen saturation in Arterial blood by Pulse oximetry 96 % 96 % MEDENT ([facility], [facility]) Body temperature 98.0 [degF] 98.0 [degF] MEDENT ([facility], [facility]) Body weight 300.00 [lb_av] 300.00 [lb_av] MEDEN T ([facility], [facility]) Body height 66 [in_i] 66 [in_i] MEDENT ([facility], [facility]) 5'6" Body mass index (BMI) [Ratio] 48.4 kg/m2 48.4 k g/m2 MEDENT ([facility], [facility]) Body weight 300 [lb_av] 300 [lb_av] eCW1 ([facility]) Body height 65.50 [in_i] 65.50 [in_i] eCW1 ([facility]) Body mass index (BMI) [Ratio] 49.16 kg/m2 49.16 kg/m2 eCW1 ([facility]) Heart rate 65 /min 65 /min eCW1 ([facility]) Respiratory rate 18 /min 18 /min eCW1 ([facility]) Body temperature 97.4 [degF] 97.4 [degF] eCW1 ( [facility]) Systolic blood pressure 134 mm[Hg] 134 mm[Hg] e CW1 ([facility]) Diastolic blood pressure 82 mm[Hg] 82 mm[Hg] eCW1 ([facility]) Body weight 301 [lb_av] 301 [lb_av] eCW1 ([facility]) Body weight 136.53 kg 136.53 kg eCW1 ([facility]) Body height 65.50 [in_i] 65.50 [in_i] eCW1 ([facility]) Body mass index (BMI) [Ratio] 49.32 kg/m2 49.32 kg/m2 eCW1 ([facility]) Systolic blood pressure 130 mm[Hg] 130 mm[Hg] e CW1 ([facility]) Diastolic blood pressure 78 mm[Hg] 78 mm[Hg] eCW1 ([facility]) Body weight 306 [lb_av] 306 [lb_av] eCW1 ([facility]) Body height [in_i] eCW1 ([facility]) Body mass index (BMI) [Ratio] 50.14 kg/m2 50.14 kg/m2 eCW1 ([facility]) Heart rate 93 /min 93 /min eCW1 ([facility]) Respiratory rate 18 /min 18 /min eCW1 ([facility]) Body temperature 97.1 [degF] 97.1 [degF] eCW1 ( [facility]) Systolic blood pressure 130 mm[Hg] 130 mm[Hg] e CW1 ([facility]) Diastolic blood pressure 78 mm[Hg] 78 mm[Hg] eCW1 ([facility]) Body weight 306 [lb_av] 306 [lb_av] eCW1 ([facility]) Body height [in_i] eCW1 ([facility]) Body mass index (BMI) [Ratio] 50.14 kg/m2 50.14 kg/m2 W1 ([facility]) Heart rate 62 /min 62 /min eCW1 ([facility]) Respiratory rate 18 /min 18 /min eCW1 ([facility]) Body temperature 97.7 [degF] 97.7 [degF] eCW1 ( [facility]) Systolic blood pressure 138 mm[Hg] 138 mm[Hg] e CW1 ([facility]) Diastolic blood pressure 88 mm[Hg] 88 mm[Hg] eCW1 ([facility]) Heart rate 88 /min 88 /min MEDENT ([facility]) Respiratory rate 16 /min 16 /min MEDENT ( [facility], [facility]) Oxygen saturation in Arterial blood by Pulse oximetry 98 % 98 % MEDENT ([facility], [facility]) Body temperature 98.0 [degF] 98.0 [degF] MEDENT ([facility], [facility]) Systolic blood pressure 107 mm[Hg] 107 mm[Hg] M EDENT ([facility], [facility]) Diastolic blood pressure 75 mm[Hg] 75 mm[Hg] MEDENT ([facility], [facility]) Body weight 308.00 [lb_av] 308.00 [lb_av] MEDEN T ([facility], [facility]) Body height 66 [in_i] 66 [in_i] MEDENT ([facility], [facility]) 5'6" Body mass index (BMI) [Ratio] 49.7 kg/m2 49.7 k g/m2 MEDENT ([facility], [facility]) Body weight 304 [lb_av] 304 [lb_av] eCW1 ([facility]) Body height [in_i] eCW1 ([facility]) Body mass index (BMI) [Ratio] 49.81 kg/m2 49.81 kg/m2 eCW1 ([facility]) Heart rate 96 /min 96 /min eCW1 ([facility]) Respiratory rate 18 /min 18 /min eCW1 ([facility]) Body temperature 97.3 [degF] 97.3 [degF] eCW1 ( [facility]) Systolic blood pressure 130 mm[Hg] 130 mm[Hg] e CW1 ([facility]) Diastolic blood pressure 72 mm[Hg] 72 mm[Hg] eCW1 ([facility]) Body temperature 97.2 [degF] 97.2 [degF] eCW1 ( [facility]) Body weight 304.0 [lb_av] 304.0 [lb_av] eCW1 ([facility]) Body height [in_i] eCW1 ([facility]) Body mass index (BMI) [Ratio] 49.81 kg/m2 49.81 kg/m2 eCW1 ([facility]) Heart rate 89 /min 89 /min eCW1 ([facility]) Respiratory rate 20 /min 20 /min eCW1 ([facility]) Systolic blood pressure 130 mm[Hg] 130 mm[Hg] e CW1 ([facility]) Diastolic blood pressure 78 mm[Hg] 78 mm[Hg] eCW1 ([facility]) Body mass index (BMI) [Ratio] 49.9 kg/m2 49.9 k g/m2 MEDENT ([facility] ) Body height 65 [in_i] 65 [in_i] MEDENT ([facility] ) 5'5" Body weight 300.00 [lb_av] 300.00 [lb_av] MEDEN T ([facility] ) Systolic blood pressure 152 mm[Hg] 152 mm[Hg] M EDENT ([facility] ) Diastolic blood pressure 90 mm[Hg] 90 mm[Hg] MEDENT ([facility] ) Body height 66 [in_i] 66 [in_i] MEDENT ([facility], ) 5'6" Body weight 302.25 [lb_av] 302.25 [lb_av] MEDEN T ([facility]) Body mass index (BMI) [Ratio] 48.8 kg/m2 48.8 k g/m2 MEDENT ([facility]) [place] body weight 130 [lb_av] 130 [lb_av] MEDEN T ([facility]) Body weight 137.101 kg 137.101 kg MEDENT ([facility]) Diastolic blood pressure 78 mm[Hg] 78 mm[Hg] eCW1 ([facility]) Heart rate 63 /min 63 /min eCW1 ([facility]) Respiratory rate 18 /min 18 /min eCW1 ([facility]) Body temperature 98.0 [degF] 98.0 [degF] eCW1 ( [facility]) Systolic blood pressure 132 mm[Hg] 132 mm[Hg] e CW1 ([facility]) Body weight 303 [lb_av] 303 [lb_av] eCW1 ([facility]) Body height [in_i] eCW1 ([facility]) Body mass index (BMI) [Ratio] 49.65 kg/m2 49.65 kg/m2 eCW1 ([facility]) Patient Treatment Plan of Care Planned Activity Planned Date Details Description Data Source (s) Cephalexin 250 MG Oral Capsule 01/07/2021 12:00:00 AM EST eCW1 ([facility]) Cephalexin 250 MG Oral Capsule 01/07/2021 12:00:00 AM EST eCW1 ([facility]) Inulin 200 MG / Lactobacillus rhamnosus GG [id number] UNT Oral Capsule 01/05/2021 12:00:00 AM EST eCW1 ([facility]) Inulin 200 MG / Lactobacillus rhamnosus GG [id number] UNT Oral Capsule 01/05/2021 12:00:00 AM EST eCW1 ([facility]) Inulin 200 MG / Lactobacillus rhamnosus GG [id number] UNT Oral Capsule 01/05/2021 12:00:00 AM EST eCW1 ([facility]) Inulin 200 MG / Lactobacillus rhamnosus GG [id number] UNT Oral Capsule 01/05/2021 12:00:00 AM EST eCW1 ([facility]) Inulin 200 MG / Lactobacillus rhamnosus GG [id number] UNT Oral Capsule 01/05/2021 12:00:00 AM EST eCW1 ([facility]) Inulin 200 MG / Lactobacillus rhamnosus GG [id number] UNT Oral Capsule 01/05/2021 12:00:00 AM EST eCW1 ([facility]) Polymyxin B 84940 UNT/ML / Trimethoprim 1 MG/ML Ophtha lmic Solution [Polytrim] 01/04/2021 12:00:00 AM EST eCW1 ([facility]) NITROFURANTOIN, MACROCRYSTALS 25 MG / Ni trofurantoin, Monohydrate 75 MG Oral Capsule [Macrobid] 01/04/2021 12:00:00 AM EST eC W1 ([facility]) Polymyxin B 67435 UNT/ML / Trimethoprim 1 MG/ML Ophtha lmic Solution [Polytrim] 01/04/2021 12:00:00 AM EST eCW1 ([facility]) NITROFURANTOIN, MACROCRYSTALS 25 MG / Ni trofurantoin, Monohydrate 75 MG Oral Capsule [Macrobid] 01/04/2021 12:00:00 AM EST eC W1 ([facility]) Polymyxin B 23661 UNT/ML / Trimethoprim 1 MG/ML Ophtha lmic Solution [Polytrim] 01/04/2021 12:00:00 AM EST eCW1 ([facility]) NITROFURANTOIN, MACROCRYSTALS 25 MG / Ni trofurantoin, Monohydrate 75 MG Oral Capsule [Macrobid] 01/04/2021 12:00:00 AM EST eC W1 ([facility]) NITROFURANTOIN, MACROCRYSTALS 25 MG / Ni trofurantoin, Monohydrate 75 MG Oral Capsule [Macrobid] 01/04/2021 12:00:00 AM EST eC W1 ([facility]) Polymyxin B 75084 UNT/ML / Trimethoprim 1 MG/ML Ophtha lmic Solution [Polytrim] 01/04/2021 12:00:00 AM EST eCW1 ([facility]) Polymyxin B 49923 UNT/ML / Trimethoprim 1 MG/ML Ophtha lmic Solution [Polytrim] 01/04/2021 12:00:00 AM EST eCW1 ([facility]) NITROFURANTOIN, MACROCRYSTALS 25 MG / Ni trofurantoin, Monohydrate 75 MG Oral Capsule [Macrobid] 01/04/2021 12:00:00 AM EST eC W1 ([facility]) Polymyxin B 23369 UNT/ML / Trimethoprim 1 MG/ML Ophtha lmic Solution [Polytrim] 01/04/2021 12:00:00 AM EST eCW1 ([facility]) NITROFURANTOIN, MACROCRYSTALS 25 MG / Ni trofurantoin, Monohydrate 75 MG Oral Capsule [Macrobid] 01/04/2021 12:00:00 AM EST eC W1 ([facility]) Polymyxin B 44922 UNT/ML / Trimethoprim 1 MG/ML Ophtha lmic Solution [Polytrim] 01/04/2021 12:00:00 AM EST eCW1 ([facility]) NITROFURANTOIN, MACROCRYSTALS 25 MG / Ni trofurantoin, Monohydrate 75 MG Oral Capsule [Macrobid] 01/04/2021 12:00:00 AM EST eC W1 ([facility]) tolterodine tartrate 2 MG Oral Tablet 06/15/2020 12:00:00 AM EDT eCW1 ([facility]) tolterodine tartrate 2 MG Oral Tablet 06/15/2020 12:00:00 AM EDT eCW1 ([facility]) 24 HR trospium chloride 60 MG Extended Release Oral Ca psule 06/11/2020 12:00:00 AM EDT eCW1 ([facility] 24 HR trospium chloride 60 MG Extended Release Oral Ca psule 06/11/2020 12:00:00 AM EDT eCW1 ([facility]) 24 HR trospium chloride 60 MG Extended Release Oral Ca psule 06/11/2020 12:00:00 AM EDT eCW1 ([facility]) 24 HR trospium chloride 60 MG Extended Release Oral Ca psule 06/11/2020 12:00:00 AM EDT eCW1 ([facility]) Classics Rolling Walker 1 06/07/2020 12:00:00 AM EDT eCW1 ([facility]) Groove Rolling Walker 1 06/07/2020 12:00:00 AM EDT eCW1 ([facility]) Classics Rolling Walker 1 06/07/2020 12:00:00 AM EDT eCW1 ([facility]) Groove Rolling Walker 1 06/07/2020 12:00:00 AM EDT eCW1 ([facility]) Classics Rolling Walker 1 06/07/2020 12:00:00 AM EDT eCW1 ([facility]) Groove Rolling Walker 1 06/07/2020 12:00:00 AM EDT eCW1 ([facility]) Classics Rolling Walker 1 06/07/2020 12:00:00 AM EDT eCW1 ([facility]) Groove Rolling Walker 1 06/07/2020 12:00:00 AM EDT eCW1 ([facility]) Classics Rolling Walker 1 06/07/2020 12:00:00 AM EDT eCW1 ([facility]) Groove Rolling Walker 1 06/07/2020 12:00:00 AM EDT eCW1 ([facility]) Classics Rolling Walker 1 06/07/2020 12:00:00 AM EDT eCW1 ([facility]) Groove Rolling Walker 1 06/07/2020 12:00:00 AM EDT eCW1 ([facility]) Classics Rolling Walker 1 06/07/2020 12:00:00 AM EDT eCW1 ([facility]) Groove Rolling Walker 1 06/07/2020 12:00:00 AM EDT eCW1 ([facility]) Amoxicillin 500 MG Oral Capsule 02/26/2020 12:00:00 AM EST eCW1 ([facility]) Amoxicillin 500 MG Oral Capsule 02/26/2020 12:00:00 AM EST eCW1 ([facility]) Amoxicillin 500 MG Oral Capsule 02/26/2020 12:00:00 AM EST eCW1 ([facility]) Amoxicillin 500 MG Oral Capsule 02/26/2020 12:00:00 AM EST eCW1 ([facility]) Amoxicillin 500 MG Oral Capsule 02/26/2020 12:00:00 AM EST eCW1 ([facility]) Amoxicillin 500 MG Oral Capsule 02/26/2020 12:00:00 AM EST eCW1 ([facility]) Amoxicillin 500 MG Oral Capsule 02/26/2020 12:00:00 AM EST eCW1 ([facility]) Ciprofloxacin 500 MG Oral Tablet [Cipro] 12/17/2019 12:00:00 AM EDT eCW1 ([facility]) NITROFURANTOIN, MACROCRYSTALS 25 MG / Ni trofurantoin, Monohydrate 75 MG Oral Capsule [Macrobid] 11/26/2019 12:00:00 AM EDT eC W1 ([facility]) NITROFURANTOIN, MACROCRYSTALS 25 MG / Ni trofurantoin, Monohydrate 75 MG Oral Capsule [Macrobid] 11/26/2019 12:00:00 AM EDT eC W1 ([facility]) NITROFURANTOIN, MACROCRYSTALS 25 MG / Ni trofurantoin, Monohydrate 75 MG Oral Capsule [Macrobid] 11/26/2019 12:00:00 AM EDT eC W1 ([facility]) NITROFURANTOIN, MACROCRYSTALS 25 MG / Ni trofurantoin, Monohydrate 75 MG Oral Capsule [Macrobid] 11/26/2019 12:00:00 AM EDT eC W1 ([facility]) NITROFURANTOIN, MACROCRYSTALS 25 MG / Ni trofurantoin, Monohydrate 75 MG Oral Capsule [Macrobid] 11/26/2019 12:00:00 AM EDT eC W1 ([facility])
[2021-01-10] MEDS ORDERED: DULO1CAP4 (16:22)
[2021-01-10] MEDS ORDERED: CEPH500C PO (16:22)
[2021-01-10] MEDS ORDERED: CELE1CAP7 (16:22)
[2021-01-10] MEDS ORDERED: POLY2.5S (16:23)
--- NOTE | 2021-01-10 23:01 | REPVR ---
PROCEDURE INFORMATION: Exam: XR Ribs with PA Chest Exam date and time: 01/10/2021 10:08 PM Age: 60 years old Clinical indication: Injury or trauma; Fall; Rib area, bilateral; Blunt trauma TECHNIQUE: Imaging protocol: XR bilateral ribs with PA chest. Views: 4 views COMPARISON: CR CHEST 2 VIEW 10/31/2017 4:09 PM FINDINGS: Lungs: Lungs are free of infiltrates or masses. Pleural spaces: No pleural effusion. Heart/Mediastinum: Heart and mediastinal contours are normal. Bones/joints: No acute displaced rib fracture. No destructive or blastic rib lesion. No pneumothorax or other ancillary evidence of rib trauma. IMPRESSION: Negative bilateral rib series with single view chest. No acute fracture or acute intrathoracic process. Electronically signed by: Freddie Hooper On 01/10/2021 23:01:17 PM
--- NOTE | 2021-01-10 23:02 | REPVR ---
PROCEDURE INFORMATION: Exam: XR Left Femur Exam date and time: 01/10/2021 10:08 PM Age: 60 years old Clinical indication: Injury or trauma; Fall; Blunt trauma; Thigh or upper leg; Left TECHNIQUE: Imaging protocol: XR Left femur. Views: 2 views. COMPARISON: MRI-Knee WITHOUT CONTRAST 11/24/2020 3:34 PM FINDINGS: Bones/joints: Bony structures are aligned normally. No fracture. No stress fracture. No concerning osseous lesion. Joint spaces are grossly well-maintained. Soft tissues: No focal soft tissue swelling, or effacement of subcutaneous soft tissue planes. IMPRESSION: Unremarkable radiographic series of the femur and thigh. Electronically signed by: Freddie Hooper On 01/10/2021 23:02:00 PM
--- NOTE | 2021-01-10 23:03 | REPVR ---
PROCEDURE INFORMATION: Exam: XR Lumbosacral Spine Exam date and time: 01/10/2021 10:08 PM Age: 60 years old Clinical indication: Injury or trauma; Fall; Blunt trauma (contusions or hematomas) TECHNIQUE: Imaging protocol: XR of the lumbosacral spine. Views: 2 or 3 views. COMPARISON: CR HIP COMPLETE 10/29/2019 2:54 PM FINDINGS: Bones/joints: No segmental vertebral malalignment. Vertebral body height and morphology are maintained. No acute fracture or concerning osseous lesion. Degenerative disc height loss with marginal endplate osteophytes and subchondral sclerosis L4-L5 predominantly and to a lesser extent at the adjacent levels. Mild hypertrophic facet arthropathy at multiple levels. SI joints and sacral arcuate lines appear normal. Soft tissues: No focal soft tissue abnormality. IMPRESSION: 1. No acute fracture or osseous malalignment 2. Mild multilevel degenerative disc and facet arthropathy Electronically signed by: Freddie Hooper On 01/10/2021 23:03:07 PM
--- NOTE | 2021-01-10 23:04 | REPVR ---
PROCEDURE INFORMATION: Exam: XR Left Tibia and Fibula Exam date and time: 01/10/2021 10:08 PM Age: 60 years old Clinical indication: Injury or trauma; Fall; Blunt trauma; Lower leg; Left TECHNIQUE: Imaging protocol: XR Left tibia and fibula. Views: 2 views. COMPARISON: MRI-Knee WITHOUT CONTRAST 11/24/2020 3:34 PM FINDINGS: Bones/joints: Bony structures are aligned normally and demonstrate normal trabecular detail. No fracture or stress fracture. No concerning osseous lesion. Well-defined plantar calcaneal spur, at the plantar aponeurosis insertion. Soft tissues: No focal soft tissue swelling or effacement of subcutaneous soft tissue planes. IMPRESSION: Unremarkable radiographic series of the leg. Electronically signed by: Freddie Hooper On 01/10/2021 23:04:08 PM
--- NOTE | 2021-01-10 23:05 | REPVR ---
PROCEDURE INFORMATION: Exam: US Duplex Left Lower Extremity Veins, Limited Exam date and time: 01/10/2021 10:30 PM Age: 60 years old Clinical indication: Injury or trauma; Fall; Blunt trauma (contusions or hematomas); Left; Lower extremity, hip and thigh level and lower extremity, lower leg level; Vessel not specified; Injury date: 01/07/21; Additional info: Trauma, pain R/O dvt TECHNIQUE: Imaging protocol: Real-time Duplex ultrasound of the Left Lower Extremity with 2-D sutherland scale, color Doppler flow and spectral waveform analysis with image documentation. Limited exam focused on the left lower extremity veins. COMPARISON: MRI-Knee WITHOUT CONTRAST 11/24/2020 3:34 PM FINDINGS: Left deep veins: Common femoral, femoral, proximal profunda femoral and popliteal veins are patent without thrombus. Normal Doppler waveforms. Normal compressibility and/or augmentation response. Calf vessels are not visualized below the popliteal vein and posterior tibial vein trunk level Left superficial veins: Saphenofemoral junction is patent without thrombus. Soft tissues: No abnormal focal fluid collection. IMPRESSION: No evidence of left lower extremity deep vein thrombosis. Electronically signed by: Freddie Hooper On 01/10/2021 23:05:05 PM
== END 2021-01-11 00:57 | disposition home or self-care (01) ==
LOC: M ED 15:43
DX: S33.5XXA Sprain of ligaments of lumbar spine, initial encounter (principal); S80.12XA Contusion of left lower leg, initial encounter; W01.0XXA Fall on same level from slipping, tripping and stumbling without subsequent striking against object, initial encounter; Y92.099 Unspecified place in other non-institutional residence as the place of occurrence of the external cause; Y93.9 Activity, unspecified; Y99.9 Unspecified external cause status; M79.605 Pain in left leg; E78.00 Pure hypercholesterolemia, unspecified; I10 Essential (primary) hypertension; Z87.442 Personal history of urinary calculi; Z79.82 Long term (current) use of aspirin; Z79.899 Other long term (current) drug therapy; Z88.5 Allergy status to narcotic agent

== ENCOUNTER → 2021-03-11 | Outpatient (CLI) | payer OTHER ==
[~2021-03-11] MED LIST changes: +CELE1CAP7 PO; +CEPH500C PO; +DULO1CAP4 PO; +GABA600T4 PO; +LOSA25TA13 PO; -LOSA25TA14 PO; +POLY2.5S; +TIZA10TA PO; -TIZA4TAB4 PO
[2021-03-11 15:15] LABS: BASO # 0.1 10^3/uL (0.0-0.2); BASO % 0.9 % (0.0-1.0); EOS # 0.2 10^3/uL (0.0-0.5); EOS % 2.9 % (0.0-3.0); HEMATOCRIT 45.6 % (36.0-47.0); LYMPH % 24.8 % (24.0-44.0); MEAN CORPUSCULAR HEMOGLOBIN 29.2 pg (27.0-33.0); MEAN CORPUSCULAR HGB CONC 30.7 g/dl (32.0-36.5); MEAN CORPUSCULAR VOLUME 95.2 fl (80.0-96.0); MONO # 0.5 10^3/uL (0.0-0.8); MONO % 5.6 % (2.0-8.0); NEUTROPHILS # 5.2 10^3/uL (1.5-8.5); NEUTROPHILS % 65.4 % (36.0-66.0); PLATELET COUNT, AUTOMATED 279 10^3/uL (150-450); RED BLOOD COUNT 4.79 10^6/uL (4.00-5.40)
[2021-03-11 15:40] LABS: ALBUMIN 3.7 GM/DL (3.2-5.2); ALT/SGPT 52 U/L (12-78); BILIRUBIN,TOTAL 0.5 MG/DL (0.2-1.0); BLOOD UREA NITROGEN 14 MG/DL (7-18); CALCIUM LEVEL 9.6 MG/DL (8.8-10.2); CARBON DIOXIDE LEVEL 30 MEQ/L (21-32); CHLORIDE LEVEL 107 MEQ/L (98-107); CHOLESTEROL LEVEL 143 MG/DL (<200); CHOLESTEROL RISK RATIO 2.979 (<5); CREATININE FOR GFR 0.94 MG/DL (0.55-1.30); GLOMERULAR FILTRATION RATE > 60.0 (>45); GLUCOSE, FASTING 113 MG/DL (70-100); HDL CHOLESTEROL 48 MG/DL (>40); LDL CHOLESTEROL 77 MG/DL (<100); NON-HDL-C 95 MG/DL; POTASSIUM SERUM 5.2 MEQ/L (3.5-5.1); SODIUM LEVEL 144 MEQ/L (136-145); TOTAL PROTEIN 7.1 GM/DL (6.4-8.2); TRIGLYCERIDES LEVEL 91 MG/DL (<150)
[2021-03-11 15:48] LABS: TOTAL 25(OH) VITAMIN D 12.8 NG/ML (30.0-100.0)
[2021-03-11 15:55] LABS: HEMOGLOBIN A1c 5.5 %
== END ==
LOC: M PLALAB 12:39
PROVIDERS: ATTEND Nurse Practitioner Family
DX: R73.09 Other abnormal glucose (principal); E78.5 Hyperlipidemia, unspecified; E55.9 Vitamin D deficiency, unspecified; I10 Essential (primary) hypertension

== ENCOUNTER → 2021-03-15 | Outpatient (CLI) | payer OTHER | LOC: M PAIN 13:00 | PROVIDERS: ATTEND Nurse Practitioner Family | DX: M51.16 Intervertebral disc disorders with radiculopathy, lumbar region (principal); Z88.5 Allergy status to narcotic agent; E66.01 Morbid (severe) obesity due to excess calories; Z68.43 Body mass index [BMI] 50.0-59.9, adult; Z79.82 Long term (current) use of aspirin; Z79.899 Other long term (current) drug therapy ==

== ENCOUNTER → 2021-03-18 | Outpatient (CLI) | payer OTHER | LOC: M LABSMTC 12:03 | PROVIDERS: ATTEND Anesthesiology | DX: Z01.812 Encounter for preprocedural laboratory examination (principal); Z20.822 Contact with and (suspected) exposure to COVID-19 ==

== ENCOUNTER 2021-03-23 10:32 | Day surgery (SDC) | payer OTHER ==
[~2021-03-23] VITALS: Ht 167.6 cm; Wt 137.9 kg
[~2021-03-23 10:32] MED LIST changes: +NS 1,000 ML IV ONE
[2021-03-23] MEDS ORDERED: fentaNYL 100 MCG/2 ML INJECTION (J3010) As Ordered ONE (12:06)
[2021-03-23] MEDS ORDERED: propofoL 500 MG/50 ML VIAL As Ordered ONE (12:06)
[2021-03-23] MEDS ORDERED: LIDOCAINE 2% 100MG/5ML SDV (FOR ANES.) As Ordered ONE (12:06)
[2021-03-23 13:25] VITALS: BP 114/57
== END 2021-03-23 13:34 | disposition home or self-care (01) ==
LOC: M OPP 10:32
PROVIDERS: ATTEND Internal Medicine Gastroenterology
DX: Z12.11 Encounter for screening for malignant neoplasm of colon (principal); Z86.010 Personal history of colon polyps; Z80.0 Family history of malignant neoplasm of digestive organs; K63.5 Polyp of colon; K57.30 Diverticulosis of large intestine without perforation or abscess without bleeding; K64.0 First degree hemorrhoids; K29.70 Gastritis, unspecified, without bleeding; K20.91 Esophagitis, unspecified with bleeding; K44.9 Diaphragmatic hernia without obstruction or gangrene; R12 Heartburn; Z79.82 Long term (current) use of aspirin; Z79.891 Long term (current) use of opiate analgesic; Z79.899 Other long term (current) drug therapy
CPT/HCPCS: 43239; 45385; 88305; J3010

== ENCOUNTER → 2021-05-12 | Outpatient (CLI) | payer OTHER ==
[~2021-05-12] MED LIST changes: -NS 1,000 ML IV ONE
== END ==
LOC: M PLAIMG 08:23
PROVIDERS: ATTEND Physician Assistant
DX: M25.562 Pain in left knee (principal); M22.42 Chondromalacia patellae, left knee

== ENCOUNTER → 2021-06-23 | Outpatient (REF) | payer OTHER | LOC: M LAB REF 13:20 | PROVIDERS: ATTEND Internal Medicine Gastroenterology | DX: B96.81 Helicobacter pylori [H. pylori] as the cause of diseases classified elsewhere (principal) ==

== ENCOUNTER → 2021-08-09 | Outpatient (CLI) | payer OTHER ==
[2021-08-09 10:53] LABS: BASO # 0.1 10^3/uL (0.0-0.2); BASO % 0.7 % (0.0-1.0); EOS # 0.2 10^3/uL (0.0-0.5); EOS % 2.2 % (0.0-3.0); HEMATOCRIT 46.9 % (36.0-47.0); HEMOGLOBIN 14.8 g/dl (12.0-15.5); LYMPH # 2.3 10^3/uL (1.5-5.0); LYMPH % 28.8 % (24.0-44.0); MEAN CORPUSCULAR HEMOGLOBIN 29.7 pg (27.0-33.0); MEAN CORPUSCULAR HGB CONC 31.6 g/dl (32.0-36.5); MONO # 0.4 10^3/uL (0.0-0.8); MONO % 5.4 % (2.0-8.0); NEUTROPHILS % 62.7 % (36.0-66.0); PLATELET COUNT, AUTOMATED 291 10^3/uL (150-450); RED BLOOD COUNT 4.99 10^6/uL (4.00-5.40)
[2021-08-09 11:20] LABS: ALBUMIN 3.7 GM/DL (3.2-5.2); BLOOD UREA NITROGEN 17 MG/DL (7-18); CALCIUM LEVEL 10.2 MG/DL (8.8-10.2); CARBON DIOXIDE LEVEL 32 MEQ/L (21-32); CHLORIDE LEVEL 102 MEQ/L (98-107); CREATININE FOR GFR 0.98 MG/DL (0.55-1.30); GLOMERULAR FILTRATION RATE > 60.0 (>45); GLUCOSE, FASTING 112 MG/DL (70-100); NT-PRO BNP 143 PG/ML (<125); POTASSIUM SERUM 4.7 MEQ/L (3.5-5.1); SODIUM LEVEL 141 MEQ/L (136-145)
== END ==
LOC: M PLAIMG 08:23
PROVIDERS: ATTEND Nurse Practitioner Family
DX: R06.02 Shortness of breath (principal)

== ENCOUNTER → 2021-08-10 | Outpatient (CLI) | payer OTHER ==
[~2021-08-10] MED LIST changes: +ISOVUE-370 76% 100ML VIAL As Ordered ONE
== END ==
LOC: M RAD 16:04
PROVIDERS: ATTEND Nurse Practitioner Family
DX: R79.89 Other specified abnormal findings of blood chemistry (principal)
CPT/HCPCS: 71275; Q9967

== ENCOUNTER → 2021-10-07 | Outpatient (CLI) | payer OTHER ==
[~2021-10-07] MED LIST changes: -ISOVUE-370 76% 100ML VIAL As Ordered ONE; +SIMV-253 PO; -ZOCO20TA PO
== END ==
LOC: M WHC 10:28
PROVIDERS: ATTEND Nurse Practitioner Family
DX: Z12.31 Encounter for screening mammogram for malignant neoplasm of breast (principal)

== ENCOUNTER → 2021-10-13 | Outpatient (CLI) | payer OTHER | LOC: M WUC 13:52 | PROVIDERS: ATTEND Physician Assistant | DX: M25.512 Pain in left shoulder (principal); M79.622 Pain in left upper arm; M25.522 Pain in left elbow; M25.712 Osteophyte, left shoulder; M25.722 Osteophyte, left elbow ==

== ENCOUNTER → 2021-10-15 | Outpatient (CLI) | payer OTHER ==
[2021-10-15 13:33] LABS: BASO # 0.1 10^3/uL (0.0-0.2); BASO % 0.6 % (0.0-1.0); EOS # 0.1 10^3/uL (0.0-0.5); EOS % 1.1 % (0.0-3.0); HEMATOCRIT 43.4 % (36.0-47.0); HEMOGLOBIN 13.7 g/dl (12.0-15.5); LYMPH # 2.7 10^3/uL (1.5-5.0); LYMPH % 27.3 % (24.0-44.0); MEAN CORPUSCULAR HGB CONC 31.6 g/dl (32.0-36.5); MEAN CORPUSCULAR VOLUME 95.2 fl (80.0-96.0); MONO # 0.5 10^3/uL (0.0-0.8); MONO % 5.4 % (2.0-8.0); NEUTROPHILS # 6.4 10^3/uL (1.5-8.5); NEUTROPHILS % 65.1 % (36.0-66.0); PLATELET COUNT, AUTOMATED 285 10^3/uL (150-450); RED BLOOD COUNT 4.56 10^6/uL (4.00-5.40); WHITE BLOOD COUNT 9.8 10^3/uL (4.0-10.0)
[2021-10-15 13:57] LABS: HEMOGLOBIN A1c 5.7 %
[2021-10-15 14:29] LABS: ALBUMIN 3.4 GM/DL (3.2-5.2); ALT/SGPT 66 U/L (12-78); BILIRUBIN,TOTAL 0.6 MG/DL (0.2-1.0); BLOOD UREA NITROGEN 17 MG/DL (7-18); CALCIUM LEVEL 9.2 MG/DL (8.8-10.2); CARBON DIOXIDE LEVEL 31 MEQ/L (21-32); CHLORIDE LEVEL 103 MEQ/L (98-107); CHOLESTEROL LEVEL 153 MG/DL (<200); CHOLESTEROL RISK RATIO 2.886 (<5); CREATININE FOR GFR 0.87 MG/DL (0.55-1.30); GLOMERULAR FILTRATION RATE > 60.0 (>45); GLUCOSE, FASTING 93 MG/DL (70-100); HDL CHOLESTEROL 53 MG/DL (>40); LDL CHOLESTEROL 82 MG/DL (<100); NON-HDL-C 100 MG/DL; NT-PRO BNP 96 PG/ML (<125); SODIUM LEVEL 139 MEQ/L (136-145); TOTAL PROTEIN 6.4 GM/DL (6.4-8.2); TRIGLYCERIDES LEVEL 89 MG/DL (<150)
[2021-10-17 11:47] LABS: TOTAL 25(OH) VITAMIN D 74.8 NG/ML (30.0-100.0)
== END ==
LOC: M LAB 13:14
PROVIDERS: ATTEND Nurse Practitioner Family
DX: I11.0 Hypertensive heart disease with heart failure (principal); E78.5 Hyperlipidemia, unspecified; R73.01 Impaired fasting glucose; I50.9 Heart failure, unspecified; E55.9 Vitamin D deficiency, unspecified

== ENCOUNTER → 2021-11-01 | Outpatient (CLI) | payer OTHER ==
[~2021-11-01] MED LIST changes: +ISOVUE-300 61% 50ML VIAL As Ordered ONE; +LIDOCAINE 1% MDV 20ML VIAL As Ordered ONE
== END ==
LOC: M RADPRO 08:27
PROVIDERS: ATTEND Nurse Practitioner Family
DX: S49.92XD Unspecified injury of left shoulder and upper arm, subsequent encounter (principal)
CPT/HCPCS: 23350; 73201; 77002; Q9967

== ENCOUNTER → 2021-11-03 | Outpatient (CLI) | payer OTHER ==
[~2021-11-03] MED LIST changes: -ISOVUE-300 61% 50ML VIAL As Ordered ONE; -LIDOCAINE 1% MDV 20ML VIAL As Ordered ONE
== END ==
LOC: M RAD 15:45
PROVIDERS: ATTEND Physician Assistant
DX: S42.142A Displaced fracture of glenoid cavity of scapula, left shoulder, initial encounter for closed fracture (principal); M19.012 Primary osteoarthritis, left shoulder; M25.512 Pain in left shoulder; M25.412 Effusion, left shoulder; X58.XXXA Exposure to other specified factors, initial encounter; Y92.9 Unspecified place or not applicable; Y93.9 Activity, unspecified; Y99.9 Unspecified external cause status

== ENCOUNTER → 2021-12-15 | Outpatient (CLI) | payer OTHER | LOC: M PLARAD 09:46 | PROVIDERS: ATTEND Orthopaedic Surgery | DX: M50.30 Other cervical disc degeneration, unspecified cervical region (principal); M46.02 Spinal enthesopathy, cervical region; M50.221 Other cervical disc displacement at C4-C5 level; M25.78 Osteophyte, vertebrae; M48.02 Spinal stenosis, cervical region; M47.812 Spondylosis without myelopathy or radiculopathy, cervical region ==

== ENCOUNTER → 2022-07-12 | Outpatient (CLI) | payer MEDICARE, OTHER | LOC: M RAD 14:01 | PROVIDERS: ATTEND Physician Assistant | DX: R06.00 Dyspnea, unspecified (principal) ==

== ENCOUNTER → 2022-08-03 | Outpatient (CLI) | payer MEDICARE, OTHER ==
[~2022-08-03] MED LIST changes: +METHACHOLINE KIT INH ONE
== END ==
LOC: M CARPUL 12:38
PROVIDERS: ATTEND Physician Assistant
DX: R06.00 Dyspnea, unspecified (principal)
CPT/HCPCS: 94070; 95070; J7674

== ENCOUNTER → 2022-08-07 | Outpatient (CLI) | payer MEDICARE, OTHER ==
[~2022-08-07] MED LIST changes: -METHACHOLINE KIT INH ONE
[2022-08-07 17:52] LABS: ALBUMIN 3.8 G/DL (3.2-5.2); ALKALINE PHOSPHATASE 95 U/L (46-116); ALT/SGPT 92 U/L (7.0-40); AST/SGOT 81 U/L (<34); BILIRUBIN,TOTAL 0.6 MG/DL (0.3-1.2); BLOOD UREA NITROGEN 14 MG/DL (9-23); CALCIUM LEVEL 9.6 MG/DL (8.3-10.6); CARBON DIOXIDE LEVEL 31 MMOL/L (20-31); CHLORIDE LEVEL 103 MMOL/L (98-107); CHOLESTEROL LEVEL 168 MG/DL (<200); CHOLESTEROL RISK RATIO 3.96 (<5); CREATININE FOR GFR 0.77 MG/DL (0.55-1.30); GLOMERULAR FILTRATION RATE > 60.0 (>45); GLUCOSE, FASTING 116 MG/DL (74-106); HDL CHOLESTEROL 42.4 MG/DL (>40); LDL CHOLESTEROL 96.6 MG/DL (<100); NON-HDL-C 125.6 MG/DL; POTASSIUM SERUM 4.2 MMOL/L (3.5-5.1); SODIUM LEVEL 143 MMOL/L (136-145); TOTAL PROTEIN 6.8 G/DL (5.7-8.2); TRIGLYCERIDES LEVEL 145 MG/DL (<150)
[2022-08-07 17:53] LABS: FREE T4 1.05 NG/DL (0.89-1.76)
[2022-08-07 17:54] LABS: THYROID STIMULATING HORMONE 3.792 uIU/ML (0.55-4.78); TOTAL 25(OH) VITAMIN D 51.1 NG/ML (20.0-100.0)
[2022-08-07 17:59] LABS: BASO # 0.1 10^3/uL (0.0-0.2); BASO % 0.6 % (0.0-1.0); EOS # 0.2 10^3/uL (0.0-0.5); EOS % 1.4 % (0.0-3.0); HEMATOCRIT 48.8 % (36.0-47.0); HEMOGLOBIN 15.2 g/dl (12.0-15.5); LYMPH # 3.4 10^3/uL (1.5-5.0); LYMPH % 27.7 % (24.0-44.0); MEAN CORPUSCULAR HGB CONC 31.1 g/dl (32.0-36.5); MEAN CORPUSCULAR VOLUME 96.4 fl (80.0-96.0); MONO # 0.7 10^3/uL (0.0-0.8); MONO % 5.3 % (2.0-8.0); NEUTROPHILS # 7.9 10^3/uL (1.5-8.5); NEUTROPHILS % 64.5 % (36.0-66.0); PLATELET COUNT, AUTOMATED 298 10^3/uL (150-450); RED BLOOD COUNT 5.06 10^6/uL (4.00-5.40); WHITE BLOOD COUNT 12.2 10^3/uL (4.0-10.0)
[2022-08-07 19:26] LABS: HEMOGLOBIN A1c 5.5 % (4.0-6.0)
== END ==
LOC: M PLALAB 15:32
PROVIDERS: ATTEND Nurse Practitioner Family
DX: E55.9 Vitamin D deficiency, unspecified (principal); I10 Essential (primary) hypertension; E78.5 Hyperlipidemia, unspecified; R73.09 Other abnormal glucose; R53.83 Other fatigue

== ENCOUNTER → 2022-09-17 | Outpatient (REF) | payer MEDICARE, OTHER | LOC: M WUC 17:44 | PROVIDERS: ATTEND Student in an Organized Health Care Education/Training Program | DX: R30.0 Dysuria (principal) ==

== ENCOUNTER → 2022-10-24 | Outpatient (REF) | payer MEDICARE, OTHER ==
[~2022-10-24] MED LIST changes: -CELE1CAP7 PO; +CELE1CAP8 PO; -GABA-283 PO; +GABA-284 PO
== END ==
LOC: M LAB REF 11:03
PROVIDERS: ATTEND Internal Medicine Gastroenterology
DX: R19.7 Diarrhea, unspecified (principal); B96.81 Helicobacter pylori [H. pylori] as the cause of diseases classified elsewhere

== ENCOUNTER → 2022-11-09 | Outpatient (CLI) | payer MEDICARE, OTHER | LOC: M WHC 11:17 | PROVIDERS: ATTEND Nurse Practitioner Family | DX: Z12.31 Encounter for screening mammogram for malignant neoplasm of breast (principal); Z80.41 Family history of malignant neoplasm of ovary ==

== ENCOUNTER → 2023-03-21 | Outpatient (CLI) | payer MEDICARE ==
[~2023-03-21] MED LIST changes: -CELE1CAP8 PO; +CELE1CAP99 PO; -OXYB5TAB10 PO; +OXYB5TAB11 PO
[2023-03-21 16:08] LABS: BASO # 0.1 10^3/uL (0.0-0.2); BASO % 0.5 % (0.0-1.0); EOS # 0.1 10^3/uL (0.0-0.5); EOS % 1.2 % (0.0-3.0); HEMATOCRIT 47.4 % (36.0-47.0); HEMOGLOBIN 14.8 g/dl (12.0-15.5); LYMPH # 3.6 10^3/uL (1.5-5.0); LYMPH % 32.3 % (24.0-44.0); MEAN CORPUSCULAR HEMOGLOBIN 30.1 pg (27.0-33.0); MEAN CORPUSCULAR HGB CONC 31.2 g/dl (32.0-36.5); MEAN CORPUSCULAR VOLUME 96.3 fl (80.0-96.0); MONO # 0.5 10^3/uL (0.0-0.8); MONO % 4.7 % (2.0-8.0); NEUTROPHILS # 6.7 10^3/uL (1.5-8.5); NEUTROPHILS % 60.9 % (36.0-66.0); PLATELET COUNT, AUTOMATED 274 10^3/uL (150-450); RED BLOOD COUNT 4.92 10^6/uL (4.00-5.40)
[2023-03-21 16:11] LABS: ALBUMIN 3.4 G/DL (3.2-5.2); ALKALINE PHOSPHATASE 89 U/L (46-116); ALT/SGPT 69 U/L (7.0-40); AST/SGOT 42 U/L (<34); BILIRUBIN,TOTAL 0.8 MG/DL (0.3-1.2); BLOOD UREA NITROGEN 10 MG/DL (9-23); CALCIUM LEVEL 9.4 MG/DL (8.3-10.6); CARBON DIOXIDE LEVEL 29 MMOL/L (20-31); CHLORIDE LEVEL 105 MMOL/L (98-107); CHOLESTEROL LEVEL 183 MG/DL (<200); CHOLESTEROL RISK RATIO 4.66 (<5); CREATININE FOR GFR 0.67 MG/DL (0.55-1.30); GLOMERULAR FILTRATION RATE > 60.0 (>45); GLUCOSE, FASTING 147 MG/DL (74-106); HDL CHOLESTEROL 39.2 MG/DL (>40); LDL CHOLESTEROL 119.4 MG/DL (<100); NON-HDL-C 143.8 MG/DL; SODIUM LEVEL 141 MMOL/L (136-145); TOTAL 25(OH) VITAMIN D 35.8 NG/ML (20.0-100.0); TOTAL PROTEIN 6.5 G/DL (5.7-8.2); TRIGLYCERIDES LEVEL 122 MG/DL (<150)
[2023-03-21 17:45] LABS: AMORPHOUS SEDIMENT SMALL (NEGATIVE); APPEARANCE, URINE TURBID (CLEAR); BACTERIA, URINE AUTO 1+ (NEGATIVE); BILIRUBIN, URINE AUTO NEGATIVE (NEGATIVE); BLOOD, URINE BLOOD NEGATIVE (NEGATIVE); CALCIUM OXALATE CRYSTALS MODERATE; COLOR, URINE AMBER (YELLOW); GLUCOSE, URINE (UA) AUTO NEGATIVE (NEGATIVE); KETONE, URINE AUTO NEGATIVE (NEGATIVE); LEUKOCYTE ESTERASE, URINE AUTO 3+ (NEGATIVE); MUCUS, URINE SMALL (NEGATIVE); NITRITE, URINE AUTO POSITIVE (NEGATIVE); PROTEIN, URINE AUTO 1+ mg/dL (NEGATIVE); RBC, URINE AUTO 7 /HPF (0-3); SPECIFIC GRAVITY URINE AUTO 1.025 (1.002-1.035); SQUAMOUS EPITHELIAL CELL UR AU 5 /HPF (0-6); WBC, URINE AUTO 134 /HPF (0-3)
== END ==
LOC: M PLALAB 12:49
PROVIDERS: ATTEND Nurse Practitioner Family
DX: E78.5 Hyperlipidemia, unspecified (principal); N39.46 Mixed incontinence; E55.9 Vitamin D deficiency, unspecified; I10 Essential (primary) hypertension; R74.8 Abnormal levels of other serum enzymes

== ENCOUNTER → 2023-07-12 | Outpatient (CLI) | payer MEDICARE ==
[~2023-07-12] MED LIST changes: -OXYB5TAB11 PO; +OXYB5TAB14 PO
== END ==
LOC: M RAD 15:20
PROVIDERS: ATTEND Orthopaedic Surgery
DX: M51.26 Other intervertebral disc displacement, lumbar region (principal); M48.56XA Collapsed vertebra, not elsewhere classified, lumbar region, initial encounter for fracture

== ENCOUNTER → 2023-09-18 | Outpatient (CLI) | payer MEDICARE ==
[2023-09-18 15:51] LABS: APPEARANCE, URINE HAZY (CLEAR); BACTERIA, URINE AUTO NEGATIVE (NEGATIVE); BILIRUBIN, URINE AUTO NEGATIVE (NEGATIVE); BLOOD, URINE BLOOD NEGATIVE (NEGATIVE); COLOR, URINE YELLOW (YELLOW); GLUCOSE, URINE (UA) AUTO NEGATIVE (NEGATIVE); KETONE, URINE AUTO NEGATIVE (NEGATIVE); LEUKOCYTE ESTERASE, URINE AUTO 2+ (NEGATIVE); MUCUS, URINE SMALL (NEGATIVE); NITRITE, URINE AUTO NEGATIVE (NEGATIVE); PROTEIN, URINE AUTO NEGATIVE (NEGATIVE); RBC, URINE AUTO 0 /HPF (0-3); SPECIFIC GRAVITY URINE AUTO 1.017 (1.002-1.035); SQUAMOUS EPITHELIAL CELL UR AU 5 /HPF (0-6); UROBILINOGEN, URINE AUTO 0.2 mg/dL (0.0-2.0); WBC, URINE AUTO 49 /HPF (0-3)
[2023-09-18 16:22] LABS: BASO # 0.1 10^3/uL (0.0-0.2); BASO % 0.6 % (0.0-1.0); EOS # 0.2 10^3/uL (0.0-0.5); EOS % 1.7 % (0.0-3.0); HEMATOCRIT 47.8 % (36.0-47.0); HEMOGLOBIN 14.9 g/dl (12.0-15.5); LYMPH # 3.5 10^3/uL (1.5-5.0); LYMPH % 32.7 % (24.0-44.0); MEAN CORPUSCULAR HEMOGLOBIN 30.6 pg (27.0-33.0); MEAN CORPUSCULAR HGB CONC 31.2 g/dl (32.0-36.5); MEAN CORPUSCULAR VOLUME 98.2 fl (80.0-96.0); MONO # 0.6 10^3/uL (0.0-0.8); MONO % 5.3 % (2.0-8.0); NEUTROPHILS # 6.3 10^3/uL (1.5-8.5); NEUTROPHILS % 59.2 % (36.0-66.0); PLATELET COUNT, AUTOMATED 331 10^3/uL (150-450); RED BLOOD COUNT 4.87 10^6/uL (4.00-5.40); WHITE BLOOD COUNT 10.6 10^3/uL (4.0-10.0)
[2023-09-18 16:41] LABS: HEMOGLOBIN A1c 5.3 % (4.0-6.0)
[2023-09-18 16:52] LABS: ALBUMIN 3.8 G/DL (3.2-5.2); ALKALINE PHOSPHATASE 95 U/L (46-116); ALT/SGPT 56 U/L (7.0-40); AST/SGOT 39 U/L (<34); BILIRUBIN,TOTAL 0.7 MG/DL (0.3-1.2); BLOOD UREA NITROGEN 14 MG/DL (9-23); CALCIUM LEVEL 10.1 MG/DL (8.3-10.6); CARBON DIOXIDE LEVEL 29 MMOL/L (20-31); CHLORIDE LEVEL 105 MMOL/L (98-107); CHOLESTEROL LEVEL 203 MG/DL (<200); CHOLESTEROL RISK RATIO 4.21 (<5); CREATININE FOR GFR 0.81 MG/DL (0.55-1.30); GLOMERULAR FILTRATION RATE > 60.0 (>45); GLUCOSE, FASTING 99 MG/DL (74-106); HDL CHOLESTEROL 48.2 MG/DL (>40); LDL CHOLESTEROL 128.6 MG/DL (<100); NON-HDL-C 154.8 MG/DL; POTASSIUM SERUM 5.3 MMOL/L (3.5-5.1); SODIUM LEVEL 140 MMOL/L (136-145); TOTAL PROTEIN 7.1 G/DL (5.7-8.2); TRIGLYCERIDES LEVEL 131 MG/DL (<150)
[2023-09-18 16:54] LABS: THYROID STIMULATING HORMONE 2.947 uIU/ML (0.55-4.78)
[2023-09-18 16:55] LABS: FREE T4 1.16 NG/DL (0.89-1.76)
== END ==
LOC: M PLALAB 14:02
PROVIDERS: ATTEND Nurse Practitioner Family
DX: E55.9 Vitamin D deficiency, unspecified (principal); K75.81 Nonalcoholic steatohepatitis (NASH); E78.5 Hyperlipidemia, unspecified; R35.0 Frequency of micturition; I10 Essential (primary) hypertension; R73.09 Other abnormal glucose; K74.60 Unspecified cirrhosis of liver

== ENCOUNTER → 2024-04-28 | Outpatient (CLI) | payer MEDICARE ==
[~2024-04-28] MED LIST changes: +GABA-1490 PO; -GABA600T4 PO
== END ==
LOC: M WHC 12:52
PROVIDERS: ATTEND Nurse Practitioner Family
DX: Z12.31 Encounter for screening mammogram for malignant neoplasm of breast (principal); R92.313 Mammographic fatty tissue density, bilateral breasts

== ENCOUNTER → 2024-04-28 | Outpatient (REF) | payer MEDICARE ==
[2024-04-28 19:10] LABS: APPEARANCE, URINE HAZY (CLEAR); BACTERIA, URINE AUTO 1+ (NEGATIVE); BILIRUBIN, URINE AUTO NEGATIVE (NEGATIVE); BLOOD, URINE BLOOD 1+ (NEGATIVE); COLOR, URINE YELLOW (YELLOW); GLUCOSE, URINE (UA) AUTO NEGATIVE (NEGATIVE); KETONE, URINE AUTO NEGATIVE (NEGATIVE); LEUKOCYTE ESTERASE, URINE AUTO 2+ (NEGATIVE); MUCUS, URINE SMALL (NEGATIVE); NITRITE, URINE AUTO POSITIVE (NEGATIVE); PROTEIN, URINE AUTO NEGATIVE (NEGATIVE); RBC, URINE AUTO 2 /HPF (0-3); SPECIFIC GRAVITY URINE AUTO 1.017 (1.002-1.035); SQUAMOUS EPITHELIAL CELL UR AU 5 /HPF (0-6); UROBILINOGEN, URINE AUTO 0.2 mg/dL (0.0-2.0); WBC, URINE AUTO 32 /HPF (0-3)
== END ==
LOC: M SFHCWAGY 16:56
PROVIDERS: ATTEND Nurse Practitioner Family
DX: R39.15 Urgency of urination (principal)

== ENCOUNTER → 2024-06-10 | Outpatient (REF) | payer MEDICARE ==
[2024-06-10 19:02] LABS: APPEARANCE, URINE HAZY (CLEAR); BACTERIA, URINE AUTO 2+ (NEGATIVE); BILIRUBIN, URINE AUTO NEGATIVE (NEGATIVE); BLOOD, URINE BLOOD 1+ (NEGATIVE); COLOR, URINE YELLOW (YELLOW); GLUCOSE, URINE (UA) AUTO NEGATIVE (NEGATIVE); KETONE, URINE AUTO NEGATIVE (NEGATIVE); LEUKOCYTE ESTERASE, URINE AUTO 2+ (NEGATIVE); MUCUS, URINE SMALL (NEGATIVE); NITRITE, URINE AUTO POSITIVE (NEGATIVE); PROTEIN, URINE AUTO NEGATIVE (NEGATIVE); RBC, URINE AUTO 2 /HPF (0-3); SPECIFIC GRAVITY URINE AUTO 1.018 (1.002-1.035); SQUAMOUS EPITHELIAL CELL UR AU 5 /HPF (0-6); UROBILINOGEN, URINE AUTO 0.2 mg/dL (0.0-2.0); WBC, URINE AUTO 13 /HPF (0-3)
[2024-06-10 19:05] LABS: BASO # 0.1 10^3/uL (0.0-0.2); BASO % 0.8 % (0.0-1.0); EOS # 0.2 10^3/uL (0.0-0.5); EOS % 1.7 % (0.0-3.0); HEMATOCRIT 46.5 % (36.0-47.0); HEMOGLOBIN 14.5 g/dl (12.0-15.5); LYMPH # 3.8 10^3/uL (1.5-5.0); LYMPH % 38.3 % (24.0-44.0); MEAN CORPUSCULAR HEMOGLOBIN 29.6 pg (27.0-33.0); MEAN CORPUSCULAR HGB CONC 31.2 g/dl (32.0-36.5); MEAN CORPUSCULAR VOLUME 94.9 fl (80.0-96.0); MONO # 0.5 10^3/uL (0.0-0.8); MONO % 5.1 % (2.0-8.0); NEUTROPHILS # 5.3 10^3/uL (1.5-8.5); NEUTROPHILS % 53.8 % (36.0-66.0); PLATELET COUNT, AUTOMATED 326 10^3/uL (150-450); WHITE BLOOD COUNT 9.9 10^3/uL (4.0-10.0)
[2024-06-10 19:24] LABS: HEMOGLOBIN A1c 5.3 % (4.0-6.0)
[2024-06-10 19:36] LABS: ALBUMIN 3.8 G/DL (3.2-5.2); BILIRUBIN,TOTAL 0.5 MG/DL (0.3-1.2); CALCIUM LEVEL 9.7 MG/DL (8.3-10.6); CHOLESTEROL RISK RATIO 3.92 (<5); CREATININE FOR GFR 0.84 MG/DL (0.55-1.30); GLOMERULAR FILTRATION RATE 77.1 (>45); HDL CHOLESTEROL 45.4 MG/DL (>40); LDL CHOLESTEROL 102.6 MG/DL (<100); NON-HDL-C 132.6 MG/DL; POTASSIUM SERUM 4.8 MMOL/L (3.5-5.1); PTH INTACT 116.1 PG/ML (18.5-88.0); TOTAL PROTEIN 6.9 G/DL (5.7-8.2)
== END ==
LOC: M SFHCPLAZ 16:48
PROVIDERS: ATTEND Nurse Practitioner Family
DX: R35.0 Frequency of micturition (principal); E55.9 Vitamin D deficiency, unspecified; I10 Essential (primary) hypertension; E78.5 Hyperlipidemia, unspecified

== ENCOUNTER → 2024-10-27 | Outpatient (REF) | payer MEDICARE ==
[2024-10-27 17:43] LABS: APPEARANCE, URINE HAZY (CLEAR); BACTERIA, URINE AUTO NEGATIVE (NEGATIVE); BILIRUBIN, URINE AUTO NEGATIVE (NEGATIVE); BLOOD, URINE BLOOD NEGATIVE (NEGATIVE); GLUCOSE, URINE (UA) AUTO NEGATIVE (NEGATIVE); KETONE, URINE AUTO NEGATIVE (NEGATIVE); LEUKOCYTE ESTERASE, URINE AUTO TRACE (NEGATIVE); MUCUS, URINE SMALL (NEGATIVE); NITRITE, URINE AUTO NEGATIVE (NEGATIVE); PROTEIN, URINE AUTO NEGATIVE (NEGATIVE); RBC, URINE AUTO 1 /HPF (0-3); SPECIFIC GRAVITY URINE AUTO 1.016 (1.002-1.035); SQUAMOUS EPITHELIAL CELL UR AU 5 /HPF (0-6); UROBILINOGEN, URINE AUTO 0.2 mg/dL (0.0-2.0); WBC, URINE AUTO 4 /HPF (0-3)
== END ==
LOC: M LABSMT 11:37
PROVIDERS: ATTEND Nurse Practitioner Family
DX: R39.9 Unspecified symptoms and signs involving the genitourinary system (principal)

== ENCOUNTER → 2024-12-11 | Outpatient (REF) | payer MEDICARE ==
[2024-12-11 15:24] LABS: APPEARANCE, URINE CLEAR (CLEAR); BACTERIA, URINE AUTO NEGATIVE (NEGATIVE); BILIRUBIN, URINE AUTO NEGATIVE (NEGATIVE); BLOOD, URINE BLOOD NEGATIVE (NEGATIVE); GLUCOSE, URINE (UA) AUTO NEGATIVE (NEGATIVE); KETONE, URINE AUTO NEGATIVE (NEGATIVE); LEUKOCYTE ESTERASE, URINE AUTO TRACE (NEGATIVE); MUCUS, URINE SMALL (NEGATIVE); NITRITE, URINE AUTO NEGATIVE (NEGATIVE); PROTEIN, URINE AUTO NEGATIVE (NEGATIVE); RBC, URINE AUTO 0 /HPF (0-3); SPECIFIC GRAVITY URINE AUTO 1.014 (1.002-1.035); SQUAMOUS EPITHELIAL CELL UR AU 2 /HPF (0-6); UROBILINOGEN, URINE AUTO 0.2 mg/dL (0.0-2.0); WBC, URINE AUTO 6 /HPF (0-3)
== END ==
LOC: M SFHCPLAZ 15:01
PROVIDERS: ATTEND Nurse Practitioner Family
DX: R35.0 Frequency of micturition (principal)

== ENCOUNTER → 2024-12-11 | Outpatient (CLI) | payer MEDICARE ==
[2024-12-11 15:44] LABS: BASO # 0.1 10^3/uL (0.0-0.2); BASO % 0.6 % (0.0-1.0); EOS # 0.2 10^3/uL (0.0-0.5); EOS % 1.6 % (0.0-3.0); LYMPH # 3.5 10^3/uL (1.5-5.0); LYMPH % 30.4 % (24.0-44.0); MONO # 0.7 10^3/uL (0.0-0.8); MONO % 5.9 % (2.0-8.0); NEUTROPHILS # 7.0 10^3/uL (1.5-8.5); NEUTROPHILS % 61.0 % (36.0-66.0); PLATELET COUNT, AUTOMATED 295 10^3/uL (150-450)
[2024-12-11 15:59] LABS: ESTIMATED AVERAGE GLUCOSE 114.0 MG/DL (60-110)
[2024-12-11 16:15] LABS: ALT/SGPT 36.0 U/L (7.0-40); AST/SGOT 24.0 U/L (<34); CALCIUM LEVEL 10.1 MG/DL (8.3-10.6); CARBON DIOXIDE LEVEL 28.0 MMOL/L (20-31); CHLORIDE LEVEL 105.0 MMOL/L (98-107); CHOLESTEROL LEVEL 198.0 MG/DL (<200); CHOLESTEROL RISK RATIO 3.51 (<5); CREATININE FOR GFR 0.88 MG/DL (0.55-1.30); GLOMERULAR FILTRATION RATE 72.9 (>45); LDL CHOLESTEROL 115.9 MG/DL (<100); MAGNESIUM LEVEL 1.9 MG/DL (1.8-2.4); NON-HDL-C 141.7 MG/DL; POTASSIUM SERUM 5.1 MMOL/L (3.5-5.1); SODIUM LEVEL 145.0 MMOL/L (136-145); TRIGLYCERIDES LEVEL 129.0 MG/DL (<150)
[2024-12-11 16:17] LABS: FREE T4 1.08 NG/DL (0.89-1.76)
== END ==
LOC: M PLALAB 13:43
PROVIDERS: ATTEND Nurse Practitioner Family
DX: E78.5 Hyperlipidemia, unspecified (principal); I10 Essential (primary) hypertension; E55.9 Vitamin D deficiency, unspecified; R73.09 Other abnormal glucose